=== PATIENT | male | born 1975 | race Hispanic/Latino ===

== ENCOUNTER 2019-12-30 13:16 | Inpatient (IN) | payer OTHER ==
[~2019-12-30] VITALS: Ht 167.6 cm; Wt 117.9 kg
[2019-12-30 14:12] LABS: CREATININE 0.8 mg/dL (0.5-1.5); POTASSIUM 3.9 mmol/L (3.5-5.1)
[2019-12-30 14:17] LABS: ALBUMIN 3.1 g/dL (3.5-5.0); BILIRUBIN,TOTAL 0.3 mg/dL (0.2-1.0); TOTAL PROTEIN, SERUM 7.9 g/dL (6.0-8.3)
[2019-12-30 14:23] LABS: BASOPHILS % (AUTO) 0.2 % (0.0-5.0); HEMATOCRIT 40.9 % (42-54); LYMPHOCYTES % (AUTO) 10.4 % (21.0-51.0); MEAN CORPUSCULAR HEMOGLOBIN 29.4 pg (27.0-33.0); MEAN CORPUSCULAR HGB CONC 34.7 g/dL (32.0-36.0); MEAN CORPUSCULAR VOLUME 84.7 fL (79-99); NEUTROPHILS % (AUTO) 82.2 % (40.0-77.0); PLATELET COUNT (AUTO) 165 K/uL (130-400); RED BLOOD CELL COUNT(AUTO) 4.83 MIL/uL (4.50-6.20); RED CELL DISTRIBUTION WIDTH 12.3 % (11.0-15.5)
[2019-12-30 14:27] LABS: FERRITIN 895 ng/mL (30-400)
[2019-12-30] MEDS ORDERED: ERGOCALCIFEROL (VITAMIN D2) 50,000 UNIT CAPSULE PO SCH (15:30)
[2019-12-30] MEDS ORDERED: ONDANSETRON HCL 4 MG/2 ML VIAL IV PRN (15:30)
[2019-12-30] MEDS ORDERED: LACTULOSE 20 GM/30 ML UDCUP PO PRN (15:30)
[2019-12-30] MEDS ORDERED: ACETAMINOPHEN 325 MG TAB PO PRN (15:30)
[2019-12-30] MEDS: CEFTRIAXONE SODIUM 1 GM IVP SCH (15:30)
[2019-12-30] MEDS ORDERED: HYDRALAZINE HCL 20 MG/ML VIAL IV PRN (15:30)
[2019-12-30] MEDS ORDERED: DEXAMETHASONE SOD PHOSPHATE 10MG/ML 1ML VIAL ONE (15:44)
[2019-12-30] MEDS ORDERED: ERGOCALCIFEROL (VITAMIN D2) 50,000 UNIT CAPSULE ONE (16:17)
[2019-12-30] MEDS ORDERED: ACETAMINOPHEN 325 MG TAB ONE (16:18)
[2019-12-30] MEDS ORDERED: CEFTRIAXONE SODIUM 1 GM ONE (16:18)
[2019-12-30] MEDS ORDERED: ALBUTEROL INHALER 90MCG/INH IH PRN (16:30)
[2019-12-30] MEDS: FAMOTIDINE 20MG TAB 20 MG TAB PO SCH (21:00)
[2019-12-30] MEDS: ACETYLCYSTEINE 600 MG CAPSULE PO SCH (21:00)
[2019-12-30] MEDS: DOXYCYCLINE HYCLATE 100 MG TABLET PO SCH (21:00)
[2019-12-30] MEDS: METHYLPREDNISOLONE SOD SUCC 40MG/ML 1ML IVP SCH (21:00)
[2019-12-30] MEDS ORDERED: METHYLPREDNISOLONE SOD SUCC 40MG/ML 1ML ONE (21:29)
[2019-12-30] MEDS ORDERED: DOXYCYCLINE HYCLATE 100 MG TABLET PO ONE (21:29)
[2019-12-30] MEDS ORDERED: FAMOTIDINE 20MG TAB 20 MG TAB ONE (21:29)
[2019-12-30] MEDS ORDERED: ENOXAPARIN SODIUM 40 MG/0.4 ML SYRINGE SQ ONE (21:29)
[2019-12-30 23:00] VITALS: BP 135/85
[2019-12-31] MEDS: CEFTRIAXONE SODIUM 1 GM IVP SCH ×2 (03:38→14:09)
[2019-12-31 04:00] VITALS: BP 113/68
[2019-12-31 07:09] LABS: CRP QUANTITATIVE 131.1 mg/L (0.00-9.0)
[2019-12-31 08:00] VITALS: BP 120/76
[2019-12-31] MEDS: ASCORBIC ACID 500 MG TAB PO SCH (09:07)
[2019-12-31] MEDS: METHYLPREDNISOLONE SOD SUCC 40MG/ML 1ML IVP SCH ×3 (09:07→20:54)
[2019-12-31] MEDS: ZINC SULFATE 220 CAPSULE PO SCH (09:08)
[2019-12-31] MEDS: FAMOTIDINE 20MG TAB 20 MG TAB PO SCH ×2 (09:08→20:54)
[2019-12-31] MEDS: DOXYCYCLINE HYCLATE 100 MG TABLET PO SCH ×2 (09:08→20:54)
[2019-12-31] MEDS: ACETYLCYSTEINE 600 MG CAPSULE PO SCH ×2 (09:09→20:54)
[2019-12-31] MEDS: ENOXAPARIN SODIUM 40 MG/0.4 ML SYRINGE SQ SCH (09:11)
[2019-12-31 11:00] VITALS: BP 127/82
--- NOTE | 2019-12-31 12:11 | NUR ---
pt endorsed from previous admitting nurse, upon assessment pt is alert and oriented able to verbalize needs, current saturation 86% on 3L, oxygen increased to 5L and pt advised to lay in prone or side lying position. Pt oxygen saturation slowly increased to 92%, pt feels slight shortness of breath while resting. Called pharmacy for prn ventolin inhaler. Pt reports speech therapist early intervention episode of diarrhea, will monitor. Pt vitals bp 127/82, hr 76, resp 24, 93% on 5L nasal canula, afebrile.
[2019-12-31 15:00] VITALS: BP 133/82
--- NOTE | 2019-12-31 18:10 | NUR ---
CM NOTE CM attempted phone call to pt [phone]. No answer, unable to leave message. CM also attempted call to Norah Delfino [phone], unable to leave message. CM to reattempt contact with patient.
[2019-12-31 21:50] VITALS: BP 132/69
[2020-01-01 00:42] VITALS: BP 130/69
[2020-01-01] MEDS: CEFTRIAXONE SODIUM 1 GM IVP SCH ×2 (03:33→14:34)
[2020-01-01 04:10] VITALS: BP 137/87
[2020-01-01 05:27] LABS: CRP QUANTITATIVE 51.4 mg/L (0.00-9.0)
[2020-01-01 07:31] LABS: BASOPHILS % (AUTO) 0.1 % (0.0-5.0); HEMATOCRIT 42.2 % (42-54); LYMPHOCYTES % (AUTO) 6.3 % (21.0-51.0); MEAN CORPUSCULAR HEMOGLOBIN 29.3 pg (27.0-33.0); MEAN CORPUSCULAR HGB CONC 34.1 g/dL (32.0-36.0); MEAN CORPUSCULAR VOLUME 85.9 fL (79-99); MONOCYTES % (AUTO) 6.6 % (3.0-13.0); NEUTROPHILS % (AUTO) 86.3 % (40.0-77.0); PLATELET COUNT (AUTO) 244 K/uL (130-400); RED BLOOD CELL COUNT(AUTO) 4.91 MIL/uL (4.50-6.20); RED CELL DISTRIBUTION WIDTH 12.6 % (11.0-15.5); WHITE BLOOD COUNT (AUTO) 18.3 K/uL (4.8-10.8)
[2020-01-01 07:49] LABS: ALBUMIN 2.9 g/dL (3.5-5.0); BILIRUBIN,TOTAL 0.2 mg/dL (0.2-1.0); CREATININE 0.9 mg/dL (0.5-1.5); TOTAL PROTEIN, SERUM 8.1 g/dL (6.0-8.3)
[2020-01-01 08:00] VITALS: BP 122/72
[2020-01-01] MEDS: ZINC SULFATE 220 CAPSULE PO SCH (09:14)
[2020-01-01] MEDS: ACETYLCYSTEINE 600 MG CAPSULE PO SCH ×2 (09:14→20:52)
[2020-01-01] MEDS: DOXYCYCLINE HYCLATE 100 MG TABLET PO SCH ×2 (09:14→20:52)
[2020-01-01] MEDS: ENOXAPARIN SODIUM 40 MG/0.4 ML SYRINGE SQ SCH (09:14)
[2020-01-01] MEDS: FAMOTIDINE 20MG TAB 20 MG TAB PO SCH ×2 (09:14→20:52)
[2020-01-01] MEDS: METHYLPREDNISOLONE SOD SUCC 40MG/ML 1ML IVP SCH ×3 (09:14→20:52)
[2020-01-01] MEDS: LISINOPRIL 10 MG TABLET PO SCH (09:15)
[2020-01-01] MEDS: ASCORBIC ACID 500 MG TAB PO SCH (09:15)
[2020-01-01 12:00] VITALS: BP 113/60
[2020-01-01 16:00] VITALS: BP 123/67
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
[2020-01-01 21:28] VITALS: BP 130/77
[2020-01-02 00:57] VITALS: BP 133/70
[2020-01-02] MEDS: CEFTRIAXONE SODIUM 1 GM IVP SCH ×2 (03:30→16:31)
[2020-01-02 05:40] VITALS: BP 106/52
[2020-01-02 06:48] LABS: BASOPHILS % (AUTO) 0.1 % (0.0-5.0); EOSINOPHILS % (AUTO) 0.3 % (0.0-8.0); HEMATOCRIT 39.9 % (42-54); LYMPHOCYTES % (AUTO) 4.4 % (21.0-51.0); MEAN CORPUSCULAR HEMOGLOBIN 29.2 pg (27.0-33.0); MEAN CORPUSCULAR HGB CONC 33.8 g/dL (32.0-36.0); MEAN CORPUSCULAR VOLUME 86.4 fL (79-99); MONOCYTES % (AUTO) 7.9 % (3.0-13.0); NEUTROPHILS % (AUTO) 86.3 % (40.0-77.0); PLATELET COUNT (AUTO) 250 K/uL (130-400); RED BLOOD CELL COUNT(AUTO) 4.62 MIL/uL (4.50-6.20); RED CELL DISTRIBUTION WIDTH 12.5 % (11.0-15.5); WHITE BLOOD COUNT (AUTO) 20.1 K/uL (4.8-10.8)
[2020-01-02] MEDS: ZINC SULFATE 220 CAPSULE PO SCH (08:20)
[2020-01-02] MEDS: ASCORBIC ACID 500 MG TAB PO SCH (08:20)
[2020-01-02] MEDS: ENOXAPARIN SODIUM 40 MG/0.4 ML SYRINGE SQ SCH (08:20)
[2020-01-02] MEDS: ACETYLCYSTEINE 600 MG CAPSULE PO SCH ×2 (08:20→19:13)
[2020-01-02] MEDS: LISINOPRIL 10 MG TABLET PO SCH (08:20)
[2020-01-02] MEDS: FAMOTIDINE 20MG TAB 20 MG TAB PO SCH ×2 (08:20→19:13)
[2020-01-02] MEDS: METHYLPREDNISOLONE SOD SUCC 40MG/ML 1ML IVP SCH ×3 (08:20→19:13)
[2020-01-02] MEDS: DOXYCYCLINE HYCLATE 100 MG TABLET PO SCH ×2 (08:20→19:13)
[2020-01-02 09:38] VITALS: BP 120/67
[2020-01-02 10:10] LABS: CREATININE 0.9 mg/dL (0.5-1.5); CRP QUANTITATIVE 23.6 mg/L (0.00-9.0); POTASSIUM 4.3 mmol/L (3.5-5.1)
[2020-01-02] MEDS ORDERED: PHARMACY COMMUNICATION MISC SCH (10:15)
[2020-01-02] MEDS: PHARMACY COMMUNICATION MISC SCH ×4 (11:30→23:24)
[2020-01-02 12:00] VITALS: BP 128/87
[2020-01-02] MEDS ORDERED: IVERMECTIN 3 MG TAB PO SCH (12:45)
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
[2020-01-02 16:00] VITALS: BP 122/65
[2020-01-02 19:30] VITALS: BP 133/72
--- NOTE | 2020-01-02 21:40 | NUR ---
PT alert, showing no signs and symptoms of distress, pt on oxygen therapy per NRB sat at 94%, pt stated no pain, will continue to monitor pt
[2020-01-03] VITALS: BP 126/90
[2020-01-03] MEDS: PHARMACY COMMUNICATION MISC SCH ×6 (02:08→23:56)
[2020-01-03] MEDS: CEFTRIAXONE SODIUM 1 GM IVP SCH ×2 (02:43→14:45)
[2020-01-03 04:00] VITALS: BP 145/82
--- NOTE | 2020-01-03 06:17 | NUR ---
Assessment Patient is in the bed sleeping. His vitals are stable at the moment & he is being closely monitored. His HR did drop to overnight to 44, but it did not sustain.
[2020-01-03 08:00] VITALS: BP 129/80
[2020-01-03] MEDS: FAMOTIDINE 20MG TAB 20 MG TAB PO SCH ×2 (08:47→19:55)
[2020-01-03] MEDS: LISINOPRIL 10 MG TABLET PO SCH (08:47)
[2020-01-03] MEDS: DOXYCYCLINE HYCLATE 100 MG TABLET PO SCH ×2 (08:47→19:55)
[2020-01-03] MEDS: ACETYLCYSTEINE 600 MG CAPSULE PO SCH ×2 (08:47→19:55)
[2020-01-03] MEDS: ASCORBIC ACID 500 MG TAB PO SCH (08:47)
[2020-01-03] MEDS: ZINC SULFATE 220 CAPSULE PO SCH (08:47)
[2020-01-03] MEDS: ENOXAPARIN SODIUM 40 MG/0.4 ML SYRINGE SQ SCH (08:48)
[2020-01-03] MEDS: METHYLPREDNISOLONE SOD SUCC 40MG/ML 1ML IVP SCH ×3 (08:48→19:55)
[2020-01-03 12:00] VITALS: BP 139/77
[2020-01-03 16:00] VITALS: BP 135/80
--- NOTE | 2020-01-03 17:46 | NUR ---
RT EVALUATED THE PT AND DECREASE O2 OF THE NRB MASK FROM 15 L TO 10 L IN PARTIAL OXYGENATION. O2 SAT IS 97-98% AT THE MOMENT.
[2020-01-03 19:30] VITALS: BP 138/67
[2020-01-04] VITALS (7 sets, daily range): BP systolic 123–141; BP diastolic 63–81
[2020-01-04] MEDS: CEFTRIAXONE SODIUM 1 GM IVP SCH ×2 (03:33→15:12)
[2020-01-04] MEDS: PHARMACY COMMUNICATION MISC SCH ×6 (03:35→23:09)
[2020-01-04 06:39] LABS: BASOPHILS % (AUTO) 0.2 % (0.0-5.0); EOSINOPHILS % (AUTO) 0.2 % (0.0-8.0); HEMATOCRIT 39.3 % (42-54); LYMPHOCYTES % (AUTO) 4.6 % (21.0-51.0); MEAN CORPUSCULAR HEMOGLOBIN 29.5 pg (27.0-33.0); MEAN CORPUSCULAR HGB CONC 34.4 g/dL (32.0-36.0); MONOCYTES % (AUTO) 9.9 % (3.0-13.0); NEUTROPHILS % (AUTO) 83.1 % (40.0-77.0); PLATELET COUNT (AUTO) 224 K/uL (130-400); RED BLOOD CELL COUNT(AUTO) 4.57 MIL/uL (4.50-6.20); RED CELL DISTRIBUTION WIDTH 12.4 % (11.0-15.5); WHITE BLOOD COUNT (AUTO) 16.9 K/uL (4.8-10.8)
[2020-01-04 06:52] LABS: CREATININE 0.8 mg/dL (0.5-1.5); POTASSIUM 4.3 mmol/L (3.5-5.1)
[2020-01-04] MEDS: DOXYCYCLINE HYCLATE 100 MG TABLET PO SCH ×2 (08:30→19:21)
[2020-01-04] MEDS: METHYLPREDNISOLONE SOD SUCC 40MG/ML 1ML IVP SCH ×3 (08:30→19:22)
[2020-01-04] MEDS: ASCORBIC ACID 500 MG TAB PO SCH (08:30)
[2020-01-04] MEDS: FAMOTIDINE 20MG TAB 20 MG TAB PO SCH ×2 (08:34→19:22)
[2020-01-04] MEDS: LISINOPRIL 10 MG TABLET PO SCH (08:34)
[2020-01-04] MEDS: ZINC SULFATE 220 CAPSULE PO SCH (08:34)
[2020-01-04] MEDS: ACETYLCYSTEINE 600 MG CAPSULE PO SCH ×2 (08:34→19:22)
[2020-01-04] MEDS: ENOXAPARIN SODIUM 40 MG/0.4 ML SYRINGE SQ SCH (08:37)
[2020-01-04] MEDS ORDERED: PHARMACY COMMUNICATION MISC SCH ×2 (09:00→13:30)
--- NOTE | 2020-01-04 11:00 | NUR ---
PATIENT CALLED CM & ASKED ABOUT DC PLAN. ADVISED HIM THAT HE WAS GOING NO WHERE ON A VENTI MASK, BUT WHEN HE IS WEANABLE TO 3-4 LNC, WE CAN OFFER HIM A CONCENTRATOR TO BE DISCHARGED HOME WITH. VERBALIZED UNDERSTANDING. WILL FOLLOW Addendum: 01/05/20 at 1928 by ELMIRA VARGAS RN CM Amended: Links added.
[2020-01-04 15:32] LABS: ALBUMIN 2.6 g/dL (3.5-5.0); BILIRUBIN,DIRECT 0.1 mg/dL (0.0-0.3); BILIRUBIN,TOTAL 0.5 mg/dL (0.2-1.0); TOTAL PROTEIN, SERUM 6.9 g/dL (6.0-8.3)
[2020-01-04] MEDS ORDERED: REMDESIVIR 200 MG in SODIUM CHLORIDE 0.9% 250 ML IV ONE (16:30)
[2020-01-05] MEDS: PHARMACY COMMUNICATION MISC SCH ×5 (03:24→19:57)
[2020-01-05] MEDS: CEFTRIAXONE SODIUM 1 GM IVP SCH ×2 (03:24→16:16)
[2020-01-05 03:57] VITALS: BP 130/76
--- NOTE | 2020-01-05 04:13 | NUR ---
Assessment Patient was just given his 330 am abx. He states that he is feeling better this morning than he has in the last past couple of days. He is not showing any S/S of distress & he is being closely monitored. Vitals are stable.
[2020-01-05 07:15] LABS: BASOPHILS % (AUTO) 0.2 % (0.0-5.0); HEMATOCRIT 39.2 % (42-54); LYMPHOCYTES % (AUTO) 4.3 % (21.0-51.0); MEAN CORPUSCULAR HEMOGLOBIN 29.2 pg (27.0-33.0); MEAN CORPUSCULAR HGB CONC 33.9 g/dL (32.0-36.0); MONOCYTES % (AUTO) 10.2 % (3.0-13.0); NEUTROPHILS % (AUTO) 82.3 % (40.0-77.0); PLATELET COUNT (AUTO) 248 K/uL (130-400); RED BLOOD CELL COUNT(AUTO) 4.56 MIL/uL (4.50-6.20); RED CELL DISTRIBUTION WIDTH 12.5 % (11.0-15.5); WHITE BLOOD COUNT (AUTO) 18.7 K/uL (4.8-10.8)
[2020-01-05 07:36] LABS: ALBUMIN 2.5 g/dL (3.5-5.0); BILIRUBIN,TOTAL 0.4 mg/dL (0.2-1.0); CREATININE 0.8 mg/dL (0.5-1.5); CRP QUANTITATIVE 39.1 mg/L (0.00-9.0); POTASSIUM 4.2 mmol/L (3.5-5.1); TOTAL PROTEIN, SERUM 6.9 g/dL (6.0-8.3)
[2020-01-05] MEDS: ACETYLCYSTEINE 600 MG CAPSULE PO SCH ×2 (08:04→19:57)
[2020-01-05] MEDS: FAMOTIDINE 20MG TAB 20 MG TAB PO SCH ×2 (08:04→19:57)
[2020-01-05] MEDS: ASCORBIC ACID 500 MG TAB PO SCH (08:04)
[2020-01-05] MEDS: METHYLPREDNISOLONE SOD SUCC 40MG/ML 1ML IVP SCH ×3 (08:04→19:57)
[2020-01-05] MEDS: DOXYCYCLINE HYCLATE 100 MG TABLET PO SCH ×2 (08:05→19:57)
[2020-01-05] MEDS: LISINOPRIL 10 MG TABLET PO SCH (08:05)
[2020-01-05] MEDS: ZINC SULFATE 220 CAPSULE PO SCH (08:06)
[2020-01-05] MEDS: ENOXAPARIN SODIUM 40 MG/0.4 ML SYRINGE SQ SCH (08:06)
[2020-01-05 09:33] VITALS: BP 123/74
[2020-01-05 12:19] VITALS: BP 124/70
[2020-01-05] MEDS ORDERED: COMPOUND IV REFRIGERATED 1 EACH IVSOLN MISC PRN (12:45)
[2020-01-05] MEDS: REMDESIVIR (EUA) 520 100 MG in SODIUM CHLORIDE 0.9% 250 ML IV SCH (16:17)
[2020-01-05 16:25] VITALS: BP 120/66
--- NOTE | 2020-01-05 17:52 | NUR ---
PT is alert, showed no signs and symptoms of distress, pt received his first dose of remdesivir today, no adverse reaction, plasma is pending, pt satuation is 88-91% on venti mask 50%, stated no pain, will continue to monitor pt
[2020-01-05] MEDS ORDERED: SODIUM CHLORIDE 0.9% 500ML 500 ML IV ONE (20:21)
[2020-01-05 21:08] VITALS: BP 124/66
--- NOTE | 2020-01-05 23:35 | NUR ---
Assessment Patient has received both units of FFP. He is not showing any S/S of distress at the moment. Vitals are stable and he is being closely monitored.
[2020-01-05 23:53] VITALS: BP 140/74
[2020-01-06] MEDS: PHARMACY COMMUNICATION MISC SCH ×5 (02:25→23:10)
[2020-01-06] MEDS: CEFTRIAXONE SODIUM 1 GM IVP SCH (02:58)
[2020-01-06 04:28] LABS: BASOPHILS % (AUTO) 0.2 % (0.0-5.0); LYMPHOCYTES % (AUTO) 3.9 % (21.0-51.0); MEAN CORPUSCULAR HEMOGLOBIN 29.2 pg (27.0-33.0); MEAN CORPUSCULAR HGB CONC 33.9 g/dL (32.0-36.0); MONOCYTES % (AUTO) 7.1 % (3.0-13.0); NEUTROPHILS % (AUTO) 84.9 % (40.0-77.0); PLATELET COUNT (AUTO) 228 K/uL (130-400); RED BLOOD CELL COUNT(AUTO) 4.42 MIL/uL (4.50-6.20); RED CELL DISTRIBUTION WIDTH 12.5 % (11.0-15.5); WHITE BLOOD COUNT (AUTO) 19.1 K/uL (4.8-10.8)
[2020-01-06 04:53] LABS: ALBUMIN 2.5 g/dL (3.5-5.0); BILIRUBIN,TOTAL 0.4 mg/dL (0.2-1.0); CREATININE 0.8 mg/dL (0.5-1.5); CRP QUANTITATIVE 56.8 mg/L (0.00-9.0); TOTAL PROTEIN, SERUM 6.9 g/dL (6.0-8.3)
[2020-01-06 06:53] VITALS: BP 141/80
[2020-01-06] MEDS: ACETYLCYSTEINE 600 MG CAPSULE PO SCH ×2 (08:23→20:07)
[2020-01-06] MEDS: FAMOTIDINE 20MG TAB 20 MG TAB PO SCH ×2 (08:24→20:07)
[2020-01-06] MEDS: ASCORBIC ACID 500 MG TAB PO SCH (08:24)
[2020-01-06] MEDS: ENOXAPARIN SODIUM 40 MG/0.4 ML SYRINGE SQ SCH ×2 (08:24→20:07)
[2020-01-06] MEDS: METHYLPREDNISOLONE SOD SUCC 40MG/ML 1ML IVP SCH ×2 (08:24→14:51)
[2020-01-06] MEDS: DOXYCYCLINE HYCLATE 100 MG TABLET PO SCH ×2 (08:24→20:17)
[2020-01-06] MEDS: LISINOPRIL 10 MG TABLET PO SCH (08:25)
[2020-01-06] MEDS: ZINC SULFATE 220 CAPSULE PO SCH (08:25)
[2020-01-06 08:48] VITALS: BP 142/70
[2020-01-06 11:03] VITALS: BP 139/79
--- NOTE | 2020-01-06 12:35 | NUR ---
Walked in to do a routine spot check. When I walked in pt got up from a proned position to sit on side of bed and began to remove 50% VM. I told pt not to remove mask. Pt put mask back on. SpO2 on 50% VM 81% and went as far as 77% went pt moved. Sats came back up to 81% but never improved. I was going to place pt on 100% NRB when pt told me no. He stated he would recover. 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 Because still had not improved I encouraged him to let me place the NRB on. He said no because he would regress by doing so. Risks were explainged & he said he understood the risks of not wearing it. Adore ROSADO made aware.
[2020-01-06] MEDS: REMDESIVIR (EUA) 520 100 MG in SODIUM CHLORIDE 0.9% 250 ML IV SCH (14:59)
[2020-01-06 16:18] VITALS: BP 127/65
[2020-01-06 21:01] VITALS: BP 132/82
[2020-01-07] VITALS (7 sets, daily range): BP systolic 110–152; BP diastolic 59–96
[2020-01-07] MEDS: PHARMACY COMMUNICATION MISC SCH ×6 (03:30→20:47)
[2020-01-07 03:50] LABS: BASOPHILS % (AUTO) 0.3 % (0.0-5.0); HEMATOCRIT 40.7 % (42-54); LYMPHOCYTES % (AUTO) 4.1 % (21.0-51.0); MEAN CORPUSCULAR HEMOGLOBIN 29.6 pg (27.0-33.0); MEAN CORPUSCULAR HGB CONC 34.2 g/dL (32.0-36.0); MEAN CORPUSCULAR VOLUME 86.6 fL (79-99); MONOCYTES % (AUTO) 4.9 % (3.0-13.0); PLATELET COUNT (AUTO) 203 K/uL (130-400); RED CELL DISTRIBUTION WIDTH 12.4 % (11.0-15.5); WHITE BLOOD COUNT (AUTO) 20.7 K/uL (4.8-10.8)
[2020-01-07 04:09] LABS: ALBUMIN 2.4 g/dL (3.5-5.0); BILIRUBIN,TOTAL 0.4 mg/dL (0.2-1.0); CREATININE 0.8 mg/dL (0.5-1.5); CRP QUANTITATIVE 85.4 mg/L (0.00-9.0); POTASSIUM 4.7 mmol/L (3.5-5.1); TOTAL PROTEIN, SERUM 6.7 g/dL (6.0-8.3)
--- NOTE | 2020-01-07 06:16 | NUR ---
Assessment Patient D-Dimer is elevated from 1885 to 3646. MD was called and informed. The patient had to be transitioned from a venti mask fiO2 of 50% to a Partial Non-rebreather. A c-xray & ABGS were ordered per MD. His vitals are stable & he is being closely monitored.
[2020-01-07 06:29] LABS: ABG BASE EXCESS -2.4 mmol/L (-2.0-3.0); ABG HCO3 20.6 mmol/L (21.0-28.0); ABG OXYGEN SATURATION 96.9 % (95.0-99.0); ABG PCO2 31 mmHg (35-48)
[2020-01-07] MEDS ORDERED: IOHEXOL-350 75 ML VIAL IV ONE (06:44)
[2020-01-07] MEDS: FAMOTIDINE 20MG TAB 20 MG TAB PO SCH ×2 (08:51→20:38)
[2020-01-07] MEDS: ASCORBIC ACID 500 MG TAB PO SCH (08:51)
[2020-01-07] MEDS: ZINC SULFATE 220 CAPSULE PO SCH (08:51)
[2020-01-07] MEDS: LISINOPRIL 10 MG TABLET PO SCH (08:51)
[2020-01-07] MEDS: ACETYLCYSTEINE 600 MG CAPSULE PO SCH ×2 (08:51→20:37)
[2020-01-07] MEDS: DEXAMETHASONE SOD PHOSPHATE 4 MG/ML 1ML VIAL IVP SCH (08:52)
[2020-01-07] MEDS: ENOXAPARIN SODIUM 40 MG/0.4 ML SYRINGE SQ SCH (08:53)
[2020-01-07] MEDS ORDERED: ENOXAPARIN SODIUM 100 MG/1 ML SQ SCH (10:00)
[2020-01-07] MEDS ORDERED: DOCUSATE SODIUM 100 MG CAP PO SCH (10:30)
[2020-01-07] MEDS ORDERED: ALPRAZOLAM 0.25 MG TABLET PO PRN (10:45)
[2020-01-07] MEDS ORDERED: ENOXAPARIN SODIUM 60 MG/0.6 ML SQ SCH ×2 (11:00)
[2020-01-07] MEDS: REMDESIVIR (EUA) 520 100 MG in SODIUM CHLORIDE 0.9% 250 ML IV SCH (16:27)
[2020-01-07] MEDS: ENOXAPARIN SODIUM 100 MG/1 ML SQ SCH (20:38)
[2020-01-08 00:27] VITALS: BP 122/77
[2020-01-08] MEDS: PHARMACY COMMUNICATION MISC SCH ×6 (02:55→20:18)
--- NOTE | 2020-01-08 04:38 | NUR ---
Assessment Patient is in the bed sleeping peacefully. He is not showing any S/S of distress. Vitals are stable. He is being closely monitored.
[2020-01-08 06:15] VITALS: BP 123/79
[2020-01-08 08:12] VITALS: BP 117/79
[2020-01-08] MEDS: DEXAMETHASONE SOD PHOSPHATE 4 MG/ML 1ML VIAL IVP SCH (09:28)
[2020-01-08] MEDS: ASCORBIC ACID 500 MG TAB PO SCH (09:29)
[2020-01-08] MEDS: ACETYLCYSTEINE 600 MG CAPSULE PO SCH ×2 (09:29→20:19)
[2020-01-08] MEDS: ENOXAPARIN SODIUM 100 MG/1 ML SQ SCH ×2 (09:29→20:20)
[2020-01-08] MEDS: FAMOTIDINE 20MG TAB 20 MG TAB PO SCH ×2 (09:29→20:19)
[2020-01-08] MEDS: LISINOPRIL 10 MG TABLET PO SCH (09:29)
[2020-01-08] MEDS: ZINC SULFATE 220 CAPSULE PO SCH (09:29)
[2020-01-08 12:06] VITALS: BP 108/64
[2020-01-08 15:30] VITALS: BP 108/79
[2020-01-08] MEDS: REMDESIVIR (EUA) 520 100 MG in SODIUM CHLORIDE 0.9% 250 ML IV SCH (16:01)
[2020-01-08 21:19] VITALS: BP 96/51
[2020-01-08] MEDS: LEVOFLOXACIN 500 MG/D5W 100 ML 100 ML IV SCH (22:37)
[2020-01-09 01:09] VITALS: BP 108/70
[2020-01-09] MEDS: PHARMACY COMMUNICATION MISC SCH ×2 (02:04→05:11)
[2020-01-09 06:33] VITALS: BP 102/47
[2020-01-09] MEDS: LISINOPRIL 10 MG TABLET PO SCH ×2 (09:00→09:30)
[2020-01-09] MEDS: ACETYLCYSTEINE 600 MG CAPSULE PO SCH ×2 (09:29→20:07)
[2020-01-09] MEDS: ASCORBIC ACID 500 MG TAB PO SCH (09:29)
[2020-01-09] MEDS: ZINC SULFATE 220 CAPSULE PO SCH (09:30)
[2020-01-09] MEDS: FAMOTIDINE 20MG TAB 20 MG TAB PO SCH ×2 (09:30→20:07)
[2020-01-09] MEDS: DEXAMETHASONE SOD PHOSPHATE 4 MG/ML 1ML VIAL IVP SCH ×2 (09:32→20:07)
[2020-01-09] MEDS: ENOXAPARIN SODIUM 100 MG/1 ML SQ SCH ×2 (09:32→20:07)
[2020-01-09 12:52] VITALS: BP 105/59
[2020-01-09 16:30] VITALS: BP 98/71
[2020-01-09] MEDS: LEVOFLOXACIN 500 MG/D5W 100 ML 100 ML IV SCH (20:07)
[2020-01-09 21:47] VITALS: BP 116/64
[2020-01-10] VITALS (7 sets, daily range): BP systolic 105–120; BP diastolic 46–77
[2020-01-10 05:52] LABS: BASOPHILS % (AUTO) 0.4 % (0.0-5.0); HEMATOCRIT 42.8 % (42-54); LYMPHOCYTES % (AUTO) 2.9 % (21.0-51.0); MEAN CORPUSCULAR HEMOGLOBIN 30.8 pg (27.0-33.0); MEAN CORPUSCULAR HGB CONC 35.3 g/dL (32.0-36.0); MEAN CORPUSCULAR VOLUME 87.2 fL (79-99); MONOCYTES % (AUTO) 4.1 % (3.0-13.0); NEUTROPHILS % (AUTO) 89.2 % (40.0-77.0); PLATELET COUNT (AUTO) 200 K/uL (130-400); RED BLOOD CELL COUNT(AUTO) 4.91 MIL/uL (4.50-6.20); RED CELL DISTRIBUTION WIDTH 12.8 % (11.0-15.5); WHITE BLOOD COUNT (AUTO) 23.6 K/uL (4.8-10.8)
[2020-01-10 06:37] LABS: ALBUMIN 2.2 g/dL (3.5-5.0); BILIRUBIN,TOTAL 0.5 mg/dL (0.2-1.0); POTASSIUM 4.7 mmol/L (3.5-5.1); TOTAL PROTEIN, SERUM 7.4 g/dL (6.0-8.3)
[2020-01-10 06:43] LABS: CRP QUANTITATIVE 197.4 mg/L (0.00-9.0)
[2020-01-10] MEDS: ACETYLCYSTEINE 600 MG CAPSULE PO SCH ×2 (08:14→21:05)
[2020-01-10] MEDS: ZINC SULFATE 220 CAPSULE PO SCH (08:14)
[2020-01-10] MEDS: ASCORBIC ACID 500 MG TAB PO SCH (08:14)
[2020-01-10] MEDS: DEXAMETHASONE SOD PHOSPHATE 4 MG/ML 1ML VIAL IVP SCH (08:14)
[2020-01-10] MEDS: FAMOTIDINE 20MG TAB 20 MG TAB PO SCH ×2 (08:14→21:06)
[2020-01-10] MEDS: ENOXAPARIN SODIUM 100 MG/1 ML SQ SCH ×2 (08:15→21:10)
[2020-01-10] MEDS: LISINOPRIL 10 MG TABLET PO SCH (08:15)
--- NOTE | 2020-01-10 14:32 | NUR ---
Nutrition Note: RD screened for [place] x 11. Pt currently with good oral intake of 75-100% of meals. Good tolerance and LBM 01/09. Recommend: continue patient on Heart healthy diet Add ensure BID with meals for added calories/protein Add Vit D 1000IU Addendum: 01/10/20 at [address] Amended: Links added.
[2020-01-10] MEDS: METHYLPREDNISOLONE SOD SUCC 40MG/ML 1ML IVP SCH ×2 (14:55→21:10)
[2020-01-10] MEDS ORDERED: IVERMECTIN 3 MG TAB PO SCH (15:30)
[2020-01-10] MEDS: LEVOFLOXACIN 500 MG/D5W 100 ML 100 ML IV SCH (21:10)
[2020-01-11] VITALS (35 sets, daily range): BP systolic 102–211; BP diastolic 46–119
[2020-01-11] MEDS: METHYLPREDNISOLONE SOD SUCC 40MG/ML 1ML IVP SCH ×3 (05:39→20:05)
[2020-01-11] MEDS: ACETYLCYSTEINE 600 MG CAPSULE PO SCH ×2 (09:00→21:00)
[2020-01-11 09:15] LABS: BASOPHILS % (AUTO) 0.2 % (0.0-5.0); HEMATOCRIT 41.5 % (42-54); LYMPHOCYTES % (AUTO) 2.4 % (21.0-51.0); MEAN CORPUSCULAR HEMOGLOBIN 30.6 pg (27.0-33.0); MEAN CORPUSCULAR HGB CONC 35.4 g/dL (32.0-36.0); MEAN CORPUSCULAR VOLUME 86.5 fL (79-99); MONOCYTES % (AUTO) 4.5 % (3.0-13.0); NEUTROPHILS % (AUTO) 91.3 % (40.0-77.0); PLATELET COUNT (AUTO) 277 K/uL (130-400); WHITE BLOOD COUNT (AUTO) 24.1 K/uL (4.8-10.8)
[2020-01-11] MEDS: ENOXAPARIN SODIUM 100 MG/1 ML SQ SCH ×2 (09:16→20:05)
[2020-01-11] MEDS: ASCORBIC ACID 500 MG TAB PO SCH (09:16)
[2020-01-11] MEDS: FAMOTIDINE 20MG TAB 20 MG TAB PO SCH ×2 (09:16→20:05)
[2020-01-11] MEDS: LISINOPRIL 10 MG TABLET PO SCH (09:16)
[2020-01-11] MEDS: ZINC SULFATE 220 CAPSULE PO SCH (09:16)
[2020-01-11 09:28] LABS: ALBUMIN 2.2 g/dL (3.5-5.0); BILIRUBIN,TOTAL 0.4 mg/dL (0.2-1.0); POTASSIUM 4.8 mmol/L (3.5-5.1); TOTAL PROTEIN, SERUM 7.4 g/dL (6.0-8.3)
[2020-01-11 09:51] LABS: B-TYPE NATRIURETIC PEPTIDE 7 pg/mL (0-100)
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
--- NOTE | 2020-01-11 17:25 | NUR ---
RT WAS CALL AND NOTIFY TO EVALUATE THE PT AFTER PT COMPLIANT OF DIFFICULTY BREATHING WHEN SITTING ON THE SIDE OF THE BED. I PERSONALLY ASSES THE PT AND HIS O2 SAT AT THE MOMENT IS 87-88% WITH THE NRB MASK AT 100% AT REST. RT WAS NOTIFY AGAIN.
--- NOTE | 2020-01-11 18:29 | NUR ---
DR. MCDOANLD DOPE AND FABRIC WORKER IS CALL AND NOTIFY ABOUT PT BEEN IN NRB MASK AT 100% AND WITH SUSTAIN O2 SAT OF 87-88%. PT VERBALIZED SOB WHEN HE IS SITTING IN THE SIDE OF THE BED. DR MCDONALD ORDER TO PUT PT ON C-PAP AT 10 AND 100%.
[2020-01-11 20:31] LABS: ABG BASE EXCESS -9.7 mmol/L (-2.0-3.0); ABG HCO3 17.8 mmol/L (21.0-28.0); ABG OXYGEN SATURATION 79.4 % (95.0-99.0); ABG PCO2 45 mmHg (35-48)
[2020-01-11] MEDS ORDERED: SODIUM BICARB 50MEQ 50ML VIAL ONE (21:29)
[2020-01-11] MEDS ORDERED: FENTANYL CITRATE PF 50 MCG/1 ML 5ML AMP IV ONE (21:34)
[2020-01-11] MEDS ORDERED: PROPOFOL 1000 MG/100 ML 100 ML IV ONE (21:44)
--- NOTE | 2020-01-11 22:45 | NUR ---
PATIENT CONDITION PATIENT IS AWAKE WITH EYES OPEN. HE APPEARS ANXIOUS. VS UNSTABLE.
[2020-01-11 22:48] LABS: ABG HCO3 24.9 mmol/L (21.0-28.0); ABG OXYGEN SATURATION 91.9 % (95.0-99.0); ABG PCO2 92 mmHg (35-48)
--- NOTE | 2020-01-11 23:10 | NUR ---
Prior to Intubation At the beginning of the shift, the patient had just been upgraded from NRB to Cpap and his O2 sats were stable as well as vitals. Around 20:15 I was informed by the tech that the patient was having a hard time breathing. When I went into the room, the patient was working really hard to breathe (RR in the 40s, O2 sats were in the 70s in prone position, BP 143/60 HR 140s). The patient was extremely diaphoretic. Respiratory was immediately called & she changed the settings from Cpap to BiPAP. However, the patient was still unstable. The lab clerk was called and informed of the situation. Stat ABGs were ordered & the results were given to the COPRA PROCESSOR Kimberley Smith ([employer]). Based upon the results, the MD ordered an immediate transfer to ICU with recommendations for intubation STAT. Report was given to the ICU nurse Gabriela & she took over Mr. Arreola's care at 21:10. The sister Norah was called and informed of the patient's status & location Room 219.
[2020-01-11 23:38] LABS: ABG BASE EXCESS -10.6 mmol/L (-2.0-3.0); ABG HCO3 20.6 mmol/L (21.0-28.0); ABG OXYGEN SATURATION 83.4 % (95.0-99.0); ABG PCO2 70 mmHg (35-48)
[2020-01-11 23:45] LABS: CARBON DIOXIDE 25 mmol/L (21-32); CHLORIDE 101 mmol/L (101-111); CREATININE 1.1 mg/dL (0.5-1.5); GLOMERULAR FILTR. RATE CALC 77 mL/min (>60); GLUCOSE,RANDOM 235 mg/dL (70-105); HEMATOCRIT 37.5 % (42-54); MEAN CORPUSCULAR HEMOGLOBIN 36.2 pg (27.0-33.0); MEAN CORPUSCULAR HGB CONC 39.5 g/dL (32.0-36.0); MEAN CORPUSCULAR VOLUME 91.7 fL (79-99); PLATELET COUNT (AUTO) 312 K/uL (130-400); POTASSIUM 5.3 mmol/L (3.5-5.1); RED BLOOD CELL COUNT(AUTO) 4.09 MIL/uL (4.50-6.20); RED CELL DISTRIBUTION WIDTH 13.3 % (11.0-15.5); SODIUM SERUM 135 mmol/L (136-145); UREA NITROGEN, BLOOD 33 mg/dL (7-18)
[2020-01-11 23:48] LABS: WHITE BLOOD COUNT (AUTO) 30.9 K/uL (4.8-10.8)
[2020-01-11 23:57] LABS: MAN.DIFF COMMENT-IMPRESSION MANUAL DIFFERENTIAL; MONOCYTES % (MANUAL) 5 % (2-9); SEGMENTED NEUTROPHILS % 95 % (40-70)
[2020-01-12] VITALS (102 sets, daily range): BP systolic 57–166; BP diastolic 30–89
[2020-01-12 00:04] LABS: ALANINE AMINOTRANSFERASE 31 U/L (12-78); ALBUMIN 2.2 g/dL (3.5-5.0); ASPARTATE AMINOTRANSFERASE 30 U/L (10-37); BILIRUBIN,TOTAL 0.5 mg/dL (0.2-1.0); CREATINE KINASE, TOTAL 46 U/L (21-232); MYOGLOBIN 82 ng/mL (10-92); TOTAL PROTEIN, SERUM 7.8 g/dL (6.0-8.3); TROPONIN I < 0.04 ng/mL (0.00-0.06)
[2020-01-12] MEDS ORDERED: FENTANYL CITRATE PF 50 MCG/1 ML 5ML AMP IV ONE (00:04)
[2020-01-12] MEDS ORDERED: FENTANYL 2500MCG+NS 250ML 250 ML IV ONE ×3 (00:04→15:52)
[2020-01-12] MEDS ORDERED: SODIUM CHLORIDE 0.9% 1000ML 1,000 ML IV SCH (00:15)
[2020-01-12] MEDS ORDERED: SODIUM BICARB 50MEQ 50ML VIAL ONE (00:25)
[2020-01-12] MEDS ORDERED: PHARMACY COMMUNICATION MISC SCH ×2 (00:30→09:30)
[2020-01-12] MEDS ORDERED: NOREPINEPHRINE 4MG/NS 250ML 250 ML IV ONE (01:22)
[2020-01-12 02:15] LABS: ABG BASE EXCESS -8.1 mmol/L (-2.0-3.0); ABG HCO3 22.8 mmol/L (21.0-28.0); ABG PCO2 72 mmHg (35-48)
[2020-01-12] MEDS ORDERED: PROPOFOL 1000 MG/100 ML 100 ML IV ONE (03:12)
[2020-01-12] MEDS ORDERED: SODIUM CHLORIDE 0.9% 100 ML IV ONE (03:18)
[2020-01-12] MEDS ORDERED: FENTANYL CITRATE PF 50 MCG/1 ML 2ML VIAL IVP PRN (04:00)
[2020-01-12] MEDS ORDERED: FENTANYL CITRATE PF 50 MCG/1 ML 2ML VIAL IVP ONE (04:00)
[2020-01-12] MEDS ORDERED: FENTANYL CITRATE PF 50 MCG/1 ML 2ML VIAL IVP SCH (04:00)
--- NOTE | 2020-01-12 04:24 | NUR ---
2100 PATIENT ARRIVED TO ROOM 219. TRANSPORTED IN BED WITH RN AND RT. BEDSIDE REPORT RECEIVED USING SBAR FORMAT. PATIENT IS AWAKE ALERT AND APPEARS TO BE ORIENTED. PATIENT AGREES TO BE INTUBATED. CURRENTLY PATIENT IS ON BIPAP. BIPAP IS SET TO DELIVER 100% OXYGEN. O2 SATS VIA FINGER PROBE ARE REGISTERING IN THE HIGH 60'S AND LOW 70'S. 2119 M#20 IV PLACED IN LEFT FOREARM. SHARA SEAY IC DESIGNER STANDARD CELLS ARRIVED AT BEDSIDE. 2134 FENTANYL 100 MCGS, ROCURONIUM 10 MGS, ETOMIDATE 20 MGS, AND SUCCINYLCHOLINE 140 MGS WERE ADMINISTERED IV PUSH. 2136 SHARA SEAY SECURED A 7.5 ET TUBE AT THE 23 CM LIP LINE. BP 133/78 HR 118, R 20, O2 SATURATION 84%, VENT SETTINGS AC/VOLUME TV 400, R 20, PEEP 10, 100% 2139 SHARA SEAY IC DESIGNER STANDARD CELLS PLACED OG TUBE AND CONNECTED IT TO LIWS WITH 75 MLS OF BROWN LIQUID RETURNED, ARPAN GARZA APRN ORDER OG TUBE TO STAY CONNECTED TO LIWS. 2144 SHARA SEAY ADMINISTERED 3 MLS OF DIPRIVAN, FENTANYL 150 MGS, AND ROCURONIUM 40 MGS, IV PUSH. 2210 SODIUM BICARBONATE 50 MLS ADMINISTERED IV PUSH 2215 DIPRIVAN DRIP STARTED AT 5MCGS/KG/MIN 2220 SALGADO CATHETER PLACED PER ORDERS FROM GUILLERMO GARZA APRN 400 MLS OF CLEAR YELLOW LIQUID WAS IMMEDIATELY RETURNED 2245 DIPRIVAN DRIP INCREASED TO 10 MGCS/KG/MIN 2255 PER SHARA SEAY AFTER ABG RESPIRATORY RATE ON VENT WAS INCREASED TO 30 BREATHS PER MINUTE. 2320 DIPRIVAN DRIP INCREASED TO 15 MCGS/KG/MINUTE 2340 DIPRIVAN INCREASED TO 20 MCGS/KG/MINUTE 2345 SPOKE TO GUILLERMO GARZA APRN REGARDING MOST RECENT BLOOD GAS, RECEIVED ORDERS TO ADVANCE ET TUBE 2 CM, GIVE FENTANYL 250MCGS IV PUSH NOW AND START FENTANYL DRIP AT 250 MCGS/HOUR, START ROCURONIUM DRIP PER PROTOCOL, INCREASE DIPRIVAN DRIP TO 50 MCGS/KG/MIN, 1 AMP SODIUM BICARBONATE IV PUSH, PRONE PATIENT FOR 18 HOURS, START LEVOPHED DRIP FOR A MAP LESS THAN 65, REPEAT ABG'S 45 MINUTES AFTER PRONING AND CALL HER WITH RESULTS. 0005 ET TUBE INSERTED 2 CM FARTHER BY RT 0030 SODIUM BICARBONATE 1 AMP IV PUSH GIVEN 0045 ROCURONIUM DRIP STARTED AT 0.8 MCGS/KG/MINUTE 0100 COMPLETE BED BATH GIVEN 0120 PATIENT PRONED WITH 2 RN'S AND 2 RT'S 012 LEVOPHED DRIP INITIATED AT 0.3 MCGS/KG/MIN 0230 GUILLERMO GARZA APRN CALLED WITH ABG'S AND LAB RESULTS. RECEIVED ORDERS TO BOLUS 1 LITER NS, DRAW LACTIC ACID 1 HOUR AFTER BOLUS GIVEN AND REPEAT ABG IN AM. 399 LEVOPHED DRIP DECREASED TO 0.2 MGS/KG/MIN Addendum: 01/12/20 at 0508 by Gabriela Ceron RN RN CHRONICLE OF EVENTS
[2020-01-12] MEDS: AZITHROMYCIN 500MG+NS 250ML 250 ML IV SCH (06:27)
[2020-01-12] MEDS: METHYLPREDNISOLONE SOD SUCC 125MG/2ML VIAL IVP SCH ×5 (06:30→22:31)
[2020-01-12] MEDS: PROPOFOL 1000 MG/100 ML 100 ML IV PRN ×3 (06:49→22:18)
--- NOTE | 2020-01-12 07:11 | NUR ---
MEDICATION ADMINISTRATION SEE NOTES OPPOSED TO MAR FOR MEDICATION ADMINISTRATION
[2020-01-12 07:20] LABS: ABG BASE EXCESS -8.2 mmol/L (-2.0-3.0); ABG HCO3 22.4 mmol/L (21.0-28.0); ABG OXYGEN SATURATION 95.2 % (95.0-99.0); ABG PCO2 69 mmHg (35-48)
[2020-01-12] MEDS: ACETYLCYSTEINE 600 MG CAPSULE PO SCH ×2 (09:00→21:00)
[2020-01-12] MEDS ORDERED: LEVOFLOXACIN 750 MG/D5W 150 ML 150 ML IV SCH (09:00)
[2020-01-12] MEDS: NOREPINEPHRINE 4MG/NS 250ML 250 ML IV PRN ×2 (09:38→22:24)
[2020-01-12] MEDS: ROCURONIUM BROMIDE IV PRN ×2 (09:39→22:19)
[2020-01-12] MEDS: SODIUM CHLORIDE 0.9% IV PRN ×2 (09:39→22:19)
[2020-01-12] MEDS ORDERED: SODIUM CHLORIDE IV SCH (09:45)
[2020-01-12] MEDS ORDERED: WATER IV SCH (09:45)
[2020-01-12] MEDS ORDERED: DEXTROSE 5% IV SCH (09:45)
[2020-01-12] MEDS ORDERED: SODIUM BICARB 50MEQ 50ML VIAL IV SCH (09:45)
[2020-01-12] MEDS: LINEZOLID 600 MG/ISO-OSM 300 ML IV SCH ×2 (09:47→22:19)
[2020-01-12] MEDS: SODIUM BICARB 8.4% 50ML SYRING 150 MEQ in DEXTROSE 5%-WATER 1,000 ML IVP SCH ×2 (09:52→22:28)
[2020-01-12] MEDS: MEROPENEM 1 GM VIAL IVP SCH ×2 (10:01→17:08)
[2020-01-12 10:04] LABS: BILIRUBIN,TOTAL 0.3 mg/dL (0.2-1.0); CREATININE 1.6 mg/dL (0.5-1.5); POTASSIUM 5.3 mmol/L (3.5-5.1); TOTAL PROTEIN, SERUM 6.6 g/dL (6.0-8.3)
[2020-01-12] MEDS: ZINC SULFATE 220 CAPSULE PO SCH (10:11)
[2020-01-12] MEDS: LISINOPRIL 10 MG TABLET PO SCH (10:11)
[2020-01-12] MEDS: ASCORBIC ACID 500 MG TAB PO SCH (10:11)
[2020-01-12] MEDS: FAMOTIDINE 20MG TAB 20 MG TAB PO SCH ×2 (10:11→22:19)
[2020-01-12] MEDS: ENOXAPARIN SODIUM 100 MG/1 ML SQ SCH ×2 (10:11→22:18)
[2020-01-12 12:47] LABS: INR 0.91 (0.85-1.15); PARTIAL THROMBOPLASTIN TIME 26.5 SEC (26.3-35.5); PROTHROMBIN TIME 9.9 SEC (9.6-11.6)
[2020-01-12 15:52] LABS: ABG BASE EXCESS -3.4 mmol/L (-2.0-3.0); ABG HCO3 25.2 mmol/L (21.0-28.0); ABG OXYGEN SATURATION 95.1 % (95.0-99.0); ABG PCO2 62 mmHg (35-48)
--- NOTE | 2020-01-12 17:16 | NUR ---
Shift report Right triple lumen IJ placed. Pt placed in suspine position for this procedure.. Tolerated well with sats at 98%, with continued current vent settings. IV fluids continued as directed. New IV abxs given as directed. 700 of UOp . Will continue to monitor.
[2020-01-13] VITALS (52 sets, daily range): BP systolic 92–171; BP diastolic 46–85
[2020-01-13] MEDS: AZITHROMYCIN 500MG+NS 250ML 250 ML IV SCH ×2 (01:47→23:24)
[2020-01-13] MEDS: MEROPENEM 1 GM VIAL IVP SCH ×3 (01:47→18:05)
[2020-01-13] MEDS: FENTANYL CITRATE PF 0.05 MG/ML 2,500 MCG in SODIUM CHLORIDE 0.9% 200 ML IVPB SCH (03:00)
[2020-01-13] MEDS: METHYLPREDNISOLONE SOD SUCC 125MG/2ML VIAL IVP SCH ×4 (04:42→23:24)
[2020-01-13] MEDS: SODIUM CHLORIDE 0.9% IV PRN ×4 (04:43→04:59)
[2020-01-13] MEDS: ROCURONIUM BROMIDE IV PRN ×4 (04:43→04:59)
[2020-01-13] MEDS: PROPOFOL 1000 MG/100 ML 100 ML IV PRN ×2 (05:01→23:13)
[2020-01-13 05:26] LABS: HEMATOCRIT 34.2 % (42-54); MEAN CORPUSCULAR HEMOGLOBIN 30.6 pg (27.0-33.0); MEAN CORPUSCULAR HGB CONC 33.3 g/dL (32.0-36.0); MEAN CORPUSCULAR VOLUME 91.7 fL (79-99); PLATELET COUNT (AUTO) 227 K/uL (130-400); RED BLOOD CELL COUNT(AUTO) 3.73 MIL/uL (4.50-6.20); RED CELL DISTRIBUTION WIDTH 13.3 % (11.0-15.5); WHITE BLOOD COUNT (AUTO) 27.7 K/uL (4.8-10.8)
[2020-01-13 05:59] LABS: ALBUMIN 1.7 g/dL (3.5-5.0); BILIRUBIN,TOTAL 0.2 mg/dL (0.2-1.0); CREATININE 1.4 mg/dL (0.5-1.5); CRP QUANTITATIVE 25.6 mg/L (0.00-9.0); POTASSIUM 4.9 mmol/L (3.5-5.1); TOTAL PROTEIN, SERUM 5.7 g/dL (6.0-8.3)
[2020-01-13 07:49] LABS: MAN.DIFF COMMENT-IMPRESSION MANUAL DIFFERENTIAL; MONOCYTES % (MANUAL) 2 % (2-9); PLATELET MORPHOLOGY COMMENT ADEQUATE; SEGMENTED NEUTROPHILS % 98 % (40-70)
[2020-01-13] MEDS: FAMOTIDINE 20MG TAB 20 MG TAB PO SCH ×2 (08:47→23:25)
[2020-01-13] MEDS: SODIUM BICARB 8.4% 50ML SYRING 150 MEQ in DEXTROSE 5%-WATER 1,000 ML IVP SCH ×2 (08:47→20:15)
[2020-01-13] MEDS: ZINC SULFATE 220 CAPSULE PO SCH (08:48)
[2020-01-13] MEDS: LISINOPRIL 10 MG TABLET PO SCH (08:48)
[2020-01-13] MEDS: LINEZOLID 600 MG/ISO-OSM 300 ML IV SCH ×2 (08:48→23:15)
[2020-01-13] MEDS: ENOXAPARIN SODIUM 100 MG/1 ML SQ SCH ×2 (08:48→21:00)
[2020-01-13] MEDS: ASCORBIC ACID 500 MG TAB PO SCH (08:48)
[2020-01-13] MEDS: ACETYLCYSTEINE 600 MG CAPSULE PO SCH ×2 (09:00→21:00)
[2020-01-13] MEDS ORDERED: FENTANYL 2500MCG+NS 250ML 250 ML IV ONE ×2 (10:31→22:51)
[2020-01-13 11:55] LABS: ABG BASE EXCESS 3.2 mmol/L (-2.0-3.0); ABG HCO3 32.4 mmol/L (21.0-28.0); ABG OXYGEN SATURATION 91.3 % (95.0-99.0); ABG PCO2 71 mmHg (35-48)
[2020-01-13] MEDS ORDERED: NOREPINEPHRINE BITARTRATE 16 MG in SODIUM CHLORIDE 0.9% 250 ML IV SCH (13:45)
[2020-01-13] MEDS: ROCURONIUM BROMIDE 250 MG in SODIUM CHLORIDE 0.9% 250 ML IV PRN (23:14)
[2020-01-14] VITALS (62 sets, daily range): BP systolic 89–219; BP diastolic 30–90
[2020-01-14] MEDS: FENTANYL CITRATE PF 0.05 MG/ML 2,500 MCG in SODIUM CHLORIDE 0.9% 200 ML IVPB SCH ×2 (02:57→03:06)
[2020-01-14] MEDS: MEROPENEM 1 GM VIAL IVP SCH ×2 (02:57→11:08)
[2020-01-14] MEDS: ACETAMINOPHEN 325 MG TAB PO PRN ×2 (03:38→07:54)
[2020-01-14] MEDS: PROPOFOL 1000 MG/100 ML 100 ML IV PRN ×2 (04:14→21:52)
[2020-01-14 04:25] LABS: BASOPHILS % (AUTO) 0.1 % (0.0-5.0); HEMATOCRIT 35.2 % (42-54); LYMPHOCYTES % (AUTO) 3.3 % (21.0-51.0); MEAN CORPUSCULAR HEMOGLOBIN 29.6 pg (27.0-33.0); MEAN CORPUSCULAR HGB CONC 31.8 g/dL (32.0-36.0); MEAN CORPUSCULAR VOLUME 93.1 fL (79-99); MONOCYTES % (AUTO) 6.3 % (3.0-13.0); NEUTROPHILS % (AUTO) 89.4 % (40.0-77.0); PLATELET COUNT (AUTO) 166 K/uL (130-400); RED BLOOD CELL COUNT(AUTO) 3.78 MIL/uL (4.50-6.20); RED CELL DISTRIBUTION WIDTH 13.2 % (11.0-15.5); WHITE BLOOD COUNT (AUTO) 16.8 K/uL (4.8-10.8)
[2020-01-14 05:19] LABS: ALBUMIN 1.9 g/dL (3.5-5.0); BILIRUBIN,TOTAL 0.3 mg/dL (0.2-1.0); CREATININE 1.7 mg/dL (0.5-1.5); CRP QUANTITATIVE 12.7 mg/L (0.00-9.0)
[2020-01-14] MEDS: METHYLPREDNISOLONE SOD SUCC 125MG/2ML VIAL IVP SCH (07:27)
[2020-01-14 07:36] LABS: ABG BASE EXCESS 2.3 mmol/L (-2.0-3.0); ABG HCO3 30.7 mmol/L (21.0-28.0); ABG OXYGEN SATURATION 92.7 % (95.0-99.0); ABG PCO2 64 mmHg (35-48)
[2020-01-14] MEDS: SODIUM BICARB 8.4% 50ML SYRING 150 MEQ in DEXTROSE 5%-WATER 1,000 ML IVP SCH ×2 (07:45→19:15)
[2020-01-14] MEDS ORDERED: FENTANYL CITRATE PF 0.05 MG/ML 1,000 MCG in SODIUM CHLORIDE 0.9% 100 ML IVPB SCH (08:15)
[2020-01-14] MEDS: LISINOPRIL 10 MG TABLET PO SCH (09:00)
[2020-01-14] MEDS: FAMOTIDINE 20MG TAB 20 MG TAB PO SCH ×2 (09:00→21:45)
[2020-01-14] MEDS: ACETYLCYSTEINE 20% 200MG/ML 4ML VIAL NG SCH ×2 (09:00→21:46)
[2020-01-14] MEDS: ASCORBIC ACID 500 MG TAB PO SCH (09:00)
[2020-01-14] MEDS: ENOXAPARIN SODIUM 100 MG/1 ML SQ SCH (09:00)
[2020-01-14] MEDS: ZINC SULFATE 220 CAPSULE PO SCH (09:00)
[2020-01-14] MEDS ORDERED: FENTANYL 2500MCG+NS 250ML 250 ML IV ONE ×2 (10:14→21:27)
[2020-01-14] MEDS: LINEZOLID 600 MG/ISO-OSM 300 ML IV SCH ×2 (11:07→21:46)
[2020-01-14] MEDS ORDERED: MIDAZOLAM 100MG-0.9% NS 100ML 100ML BAG IV SCH (11:45)
[2020-01-14] MEDS ORDERED: LACTATED RINGERS 1000ML IV SCH (11:45)
[2020-01-14] MEDS ORDERED: METHYLPREDNISOLONE SOD SUCC 125MG/2ML VIAL IVP SCH (21:00)
[2020-01-15] VITALS (58 sets, daily range): BP systolic 87–171; BP diastolic 43–75
[2020-01-15] MEDS: AZITHROMYCIN 500MG+NS 250ML 250 ML IV SCH (00:39)
[2020-01-15] MEDS: MEROPENEM 1 GM VIAL IVP SCH ×3 (01:30→18:12)
[2020-01-15 03:21] LABS: ABG BASE EXCESS 0.8 mmol/L (-2.0-3.0); ABG HCO3 27.9 mmol/L (21.0-28.0); ABG OXYGEN SATURATION 88.5 % (95.0-99.0); ABG PCO2 54 mmHg (35-48)
[2020-01-15] MEDS: PROPOFOL 1000 MG/100 ML 100 ML IV PRN ×2 (03:45→21:41)
[2020-01-15 06:03] LABS: BASOPHILS % (AUTO) 0.1 % (0.0-5.0); EOSINOPHILS % (AUTO) 0.1 % (0.0-8.0); HEMATOCRIT 27.8 % (42-54); LYMPHOCYTES % (AUTO) 4.6 % (21.0-51.0); MEAN CORPUSCULAR HGB CONC 33.5 g/dL (32.0-36.0); MEAN CORPUSCULAR VOLUME 95.5 fL (79-99); MONOCYTES % (AUTO) 5.7 % (3.0-13.0); NEUTROPHILS % (AUTO) 88.9 % (40.0-77.0); PLATELET COUNT (AUTO) 132 K/uL (130-400); RED BLOOD CELL COUNT(AUTO) 2.91 MIL/uL (4.50-6.20); RED CELL DISTRIBUTION WIDTH 13.2 % (11.0-15.5); WHITE BLOOD COUNT (AUTO) 14.9 K/uL (4.8-10.8)
[2020-01-15 06:37] LABS: CREATININE 1.8 mg/dL (0.5-1.5); POTASSIUM 5.3 mmol/L (3.5-5.1)
[2020-01-15] MEDS: SODIUM BICARB 8.4% 50ML SYRING 150 MEQ in DEXTROSE 5%-WATER 1,000 ML IVP SCH (06:45)
[2020-01-15 06:55] LABS: ALBUMIN 1.6 g/dL (3.5-5.0); BILIRUBIN,TOTAL 0.2 mg/dL (0.2-1.0); CRP QUANTITATIVE 3.4 mg/L (0.00-9.0); TOTAL PROTEIN, SERUM 4.9 g/dL (6.0-8.3)
[2020-01-15 07:30] LABS: ABG BASE EXCESS 0.8 mmol/L (-2.0-3.0); ABG OXYGEN SATURATION 86.3 % (95.0-99.0); ABG PCO2 55 mmHg (35-48)
[2020-01-15] MEDS ORDERED: ENOXAPARIN SODIUM 100 MG/1 ML SQ SCH (09:00)
[2020-01-15] MEDS ORDERED: SODIUM CHLORIDE 0.9% 100 ML IV ONE (10:01)
[2020-01-15] MEDS: FAMOTIDINE 20MG TAB 20 MG TAB PO SCH ×2 (10:16→21:41)
[2020-01-15] MEDS: ZINC SULFATE 220 CAPSULE PO SCH (10:16)
[2020-01-15] MEDS: ACETYLCYSTEINE 20% 200MG/ML 4ML VIAL NG SCH ×2 (10:16→21:40)
[2020-01-15] MEDS: LISINOPRIL 10 MG TABLET PO SCH (10:16)
[2020-01-15] MEDS: ASCORBIC ACID 500 MG TAB PO SCH (10:16)
[2020-01-15] MEDS ORDERED: FENTANYL 2500MCG+NS 250ML 250 ML IV ONE ×2 (12:10→21:52)
[2020-01-15 13:20] LABS: ABG BASE EXCESS 2.9 mmol/L (-2.0-3.0); ABG HCO3 28.2 mmol/L (21.0-28.0); ABG OXYGEN SATURATION 86.9 % (95.0-99.0); ABG PCO2 46 mmHg (35-48)
[2020-01-15 17:05] LABS: ABG BASE EXCESS 1.9 mmol/L (-2.0-3.0); ABG HCO3 29.4 mmol/L (21.0-28.0); ABG OXYGEN SATURATION 90.7 % (95.0-99.0); ABG PCO2 58 mmHg (35-48)
[2020-01-15] MEDS: METHYLPREDNISOLONE SOD SUCC 125MG/2ML VIAL IVP SCH (21:40)
[2020-01-16] VITALS (29 sets, daily range): BP systolic 119–184; BP diastolic 53–84
[2020-01-16] MEDS ORDERED: SODIUM CHLORIDE 0.9% 1000ML 1,000 ML IV ONE (00:40)
[2020-01-16] MEDS: ROCURONIUM BROMIDE 250 MG in SODIUM CHLORIDE 0.9% 250 ML IV PRN (02:32)
[2020-01-16] MEDS: PROPOFOL 1000 MG/100 ML 100 ML IV PRN ×3 (02:33→22:38)
[2020-01-16] MEDS: MEROPENEM 1 GM VIAL IVP SCH ×2 (02:43→08:43)
[2020-01-16 04:56] LABS: BASOPHILS % (AUTO) 0.1 % (0.0-5.0); HEMATOCRIT 30.4 % (42-54); LYMPHOCYTES % (AUTO) 1.8 % (21.0-51.0); MEAN CORPUSCULAR HEMOGLOBIN 29.9 pg (27.0-33.0); MEAN CORPUSCULAR HGB CONC 31.3 g/dL (32.0-36.0); MEAN CORPUSCULAR VOLUME 95.6 fL (79-99); MONOCYTES % (AUTO) 1.7 % (3.0-13.0); NEUTROPHILS % (AUTO) 95.7 % (40.0-77.0); PLATELET COUNT (AUTO) 117 K/uL (130-400); RED BLOOD CELL COUNT(AUTO) 3.18 MIL/uL (4.50-6.20); RED CELL DISTRIBUTION WIDTH 13.1 % (11.0-15.5); WHITE BLOOD COUNT (AUTO) 13.1 K/uL (4.8-10.8)
[2020-01-16 05:16] LABS: ALBUMIN 1.7 g/dL (3.5-5.0); BILIRUBIN,TOTAL 0.3 mg/dL (0.2-1.0); CREATININE 1.7 mg/dL (0.5-1.5); CRP QUANTITATIVE 13.3 mg/L (0.00-9.0); MAGNESIUM 3.3 mg/dL (1.80-2.40); PHOSPHORUS 5.4 mg/dL (2.5-4.9); TOTAL PROTEIN, SERUM 5.2 g/dL (6.0-8.3)
[2020-01-16 05:45] LABS: POTASSIUM 6.1 mmol/L (3.5-5.1)
[2020-01-16] MEDS ORDERED: CALCIUM CHLORIDE 100 MG/ML 10 ML SYG IVP SCH (06:07)
[2020-01-16] MEDS ORDERED: DEXTROSE 50%-WATER 50 ML DISP.SYRIN IV SCH (06:30)
[2020-01-16] MEDS ORDERED: INSULIN HUMULIN R 100 UNIT/ML 3ML IV SCH (06:30)
[2020-01-16] MEDS ORDERED: SODIUM POLYSTYRENE SULFONATE 15 GM/60 ML ML PO SCH (07:00)
[2020-01-16 07:15] LABS: ABG BASE EXCESS 0.5 mmol/L (-2.0-3.0); ABG HCO3 30.3 mmol/L (21.0-28.0); ABG OXYGEN SATURATION 94.1 % (95.0-99.0); ABG PCO2 73 mmHg (35-48)
[2020-01-16] MEDS: METOPROLOL TARTRATE 1 MG/ML 5ML VIAL IV SCH ×2 (07:28→13:00)
--- NOTE | 2020-01-16 07:38 | NUR ---
06:[address] CHAU OF k+ 5.3 TO 6.1 eLEVATED B/P 180'S / DBP 90'S. HR 130-140'S.COOLER TENDER AN HOUR. INCREASED vERSED 2MG TO 6 MG, HYDRALIZINE GIVEN ...NO RESULTS NOTIFIED OF EKG CHANGES NORMAL ( ADMISSION EKG) TO SEPTAL INFARCT MEDS GIVEN ORDERED
[2020-01-16] MEDS ORDERED: FENTANYL 2500MCG+NS 250ML 250 ML IV ONE ×2 (07:51→18:29)
[2020-01-16] MEDS: ASCORBIC ACID 500 MG TAB PO SCH (08:42)
[2020-01-16] MEDS: ACETYLCYSTEINE 20% 200MG/ML 4ML VIAL NG SCH ×2 (08:42→22:56)
[2020-01-16] MEDS: METHYLPREDNISOLONE SOD SUCC 125MG/2ML VIAL IVP SCH ×2 (08:42→22:55)
[2020-01-16] MEDS: LISINOPRIL 10 MG TABLET PO SCH (08:42)
[2020-01-16] MEDS: FAMOTIDINE 20MG TAB 20 MG TAB PO SCH ×2 (08:42→22:56)
[2020-01-16] MEDS: ZINC SULFATE 220 CAPSULE PO SCH (08:42)
[2020-01-16] MEDS: ENOXAPARIN SODIUM 40 MG/0.4 ML SYRINGE SQ SCH (08:43)
[2020-01-16 17:05] LABS: MEAN CORPUSCULAR HEMOGLOBIN 28.8 pg (27.0-33.0); MEAN CORPUSCULAR HGB CONC 30.3 g/dL (32.0-36.0); MEAN CORPUSCULAR VOLUME 95.1 fL (79-99); PLATELET COUNT (AUTO) 120 K/uL (130-400); RED BLOOD CELL COUNT(AUTO) 3.26 MIL/uL (4.50-6.20); WHITE BLOOD COUNT (AUTO) 14.5 K/uL (4.8-10.8)
[2020-01-16 17:07] LABS: CHLORIDE,URINE RANDOM 46 mmol/L (110-250); POTASSIUM,URINE RANDOM 24 mmol/L (25-125); SODIUM,URINE RANDOM 54 mmol/l (40-220)
[2020-01-16 17:21] LABS: CREATININE 1.7 mg/dL (0.5-1.5); MAGNESIUM 3.3 mg/dL (1.80-2.40); PHOSPHORUS 4.7 mg/dL (2.5-4.9)
[2020-01-16 17:31] LABS: BAND NEUTROPHILS % (MANUAL) 1 % (0-2); MAN.DIFF COMMENT-IMPRESSION MANUAL DIFFERENTIAL; MONOCYTES % (MANUAL) 1 % (2-9); REACTIVE LYMPHOCYTES 1 % (0-0); SEGMENTED NEUTROPHILS % 97 % (40-70)
[2020-01-16 17:32] LABS: PLATELET MORPHOLOGY COMMENT LARGE PLTS PRESENT
[2020-01-16 17:44] LABS: POTASSIUM 6.1 mmol/L (3.5-5.1)
[2020-01-16 19:58] LABS: ABG BASE EXCESS 3.3 mmol/L (-2.0-3.0); ABG HCO3 29.8 mmol/L (21.0-28.0); ABG OXYGEN SATURATION 90.6 % (95.0-99.0); ABG PCO2 53 mmHg (35-48)
[2020-01-17] VITALS (33 sets, daily range): BP systolic 83–193; BP diastolic 56–85
[2020-01-17] MEDS: MEROPENEM 1 GM VIAL IVP SCH ×3 (02:25→18:13)
[2020-01-17] MEDS: PROPOFOL 1000 MG/100 ML 100 ML IV PRN ×2 (02:27→23:10)
[2020-01-17] MEDS ORDERED: FENTANYL 2500MCG+NS 250ML 250 ML IV ONE ×4 (03:57→22:46)
[2020-01-17] MEDS: MIDAZOLAM 100MG-0.9% NS 100ML 100 ML IV SCH ×2 (04:12→22:10)
[2020-01-17 05:48] LABS: HEMATOCRIT 31.2 % (42-54); MEAN CORPUSCULAR HEMOGLOBIN 29.8 pg (27.0-33.0); MEAN CORPUSCULAR HGB CONC 31.1 g/dL (32.0-36.0); MEAN CORPUSCULAR VOLUME 95.7 fL (79-99); PLATELET COUNT (AUTO) 112 K/uL (130-400); RED BLOOD CELL COUNT(AUTO) 3.26 MIL/uL (4.50-6.20); RED CELL DISTRIBUTION WIDTH 13.2 % (11.0-15.5); WHITE BLOOD COUNT (AUTO) 17.3 K/uL (4.8-10.8)
[2020-01-17 06:29] LABS: BAND NEUTROPHILS % (MANUAL) 3 % (0-2); LYMPHOCYTES % (MANUAL) 1 % (22-44); MAN.DIFF COMMENT-IMPRESSION MANUAL DIFFERENTIAL; MONOCYTES % (MANUAL) 1 % (2-9); PLATELET MORPHOLOGY COMMENT SLIGHTLY DECREASED; SEGMENTED NEUTROPHILS % 95 % (40-70)
[2020-01-17 06:30] LABS: ALBUMIN 1.8 g/dL (3.5-5.0); BILIRUBIN,TOTAL 0.3 mg/dL (0.2-1.0); CREATININE 1.7 mg/dL (0.5-1.5); CRP QUANTITATIVE 6.1 mg/L (0.00-9.0); TOTAL PROTEIN, SERUM 5.4 g/dL (6.0-8.3)
[2020-01-17 07:15] LABS: ABG BASE EXCESS 7.7 mmol/L (-2.0-3.0); ABG HCO3 35.9 mmol/L (21.0-28.0); ABG OXYGEN SATURATION 96.2 % (95.0-99.0); ABG PCO2 66 mmHg (35-48)
[2020-01-17] MEDS ORDERED: SODIUM POLYSTYRENE SULFONATE 15 GM/60 ML ML PO SCH (07:45)
[2020-01-17] MEDS: ASCORBIC ACID 500 MG TAB PO SCH (08:52)
[2020-01-17] MEDS: METHYLPREDNISOLONE SOD SUCC 125MG/2ML VIAL IVP SCH ×2 (08:52→22:20)
[2020-01-17] MEDS: ACETYLCYSTEINE 20% 200MG/ML 4ML VIAL NG SCH ×2 (08:52→22:29)
[2020-01-17] MEDS: FAMOTIDINE 20MG TAB 20 MG TAB PO SCH ×2 (08:52→22:10)
[2020-01-17] MEDS: ZINC SULFATE 220 CAPSULE PO SCH (08:52)
[2020-01-17] MEDS: ENOXAPARIN SODIUM 40 MG/0.4 ML SYRINGE SQ SCH (08:53)
[2020-01-17] MEDS: ACETAMINOPHEN 325 MG TAB PO PRN ×2 (10:28→12:08)
--- NOTE | 2020-01-17 13:15 | NUR ---
JARED Sanchez#[id number] Addendum: 01/17/20 at 1316 by DEVI ALFREDO Amended: Links added.
[2020-01-17] MEDS: METOPROLOL TARTRATE 1 MG/ML 5ML VIAL IV SCH ×2 (14:01→19:00)
[2020-01-17] MEDS: ROCURONIUM BROMIDE 250 MG in SODIUM CHLORIDE 0.9% 250 ML IV PRN (22:58)
[2020-01-18] VITALS (53 sets, daily range): BP systolic 85–153; BP diastolic 50–80
[2020-01-18] MEDS: METOPROLOL TARTRATE 1 MG/ML 5ML VIAL IV SCH ×4 (01:00→19:00)
[2020-01-18] MEDS: MEROPENEM 1 GM VIAL IVP SCH ×3 (02:15→18:45)
[2020-01-18] MEDS: PROPOFOL 1000 MG/100 ML 100 ML IV PRN ×3 (04:00→22:33)
[2020-01-18 05:20] LABS: HEMATOCRIT 29.7 % (42-54); MEAN CORPUSCULAR HEMOGLOBIN 30.2 pg (27.0-33.0); MEAN CORPUSCULAR HGB CONC 31.6 g/dL (32.0-36.0); MEAN CORPUSCULAR VOLUME 95.5 fL (79-99); PLATELET COUNT (AUTO) 111 K/uL (130-400); RED BLOOD CELL COUNT(AUTO) 3.11 MIL/uL (4.50-6.20); RED CELL DISTRIBUTION WIDTH 13.3 % (11.0-15.5); WHITE BLOOD COUNT (AUTO) 16.5 K/uL (4.8-10.8)
[2020-01-18 06:05] LABS: BAND NEUTROPHILS % (MANUAL) 2 % (0-2); LYMPHOCYTES % (MANUAL) 1 % (22-44); MAN.DIFF COMMENT-IMPRESSION MANUAL DIFFERENTIAL; MONOCYTES % (MANUAL) 3 % (2-9); PLATELET MORPHOLOGY COMMENT SLIGHTLY DECREASED; SEGMENTED NEUTROPHILS % 94 % (40-70)
[2020-01-18 07:11] LABS: ABG BASE EXCESS 3.7 mmol/L (-2.0-3.0); ABG HCO3 30.1 mmol/L (21.0-28.0); ABG OXYGEN SATURATION 92.3 % (95.0-99.0); ABG PCO2 52 mmHg (35-48)
[2020-01-18] MEDS: MIDAZOLAM 100MG-0.9% NS 100ML 100 ML IV SCH (08:08)
[2020-01-18] MEDS: ENOXAPARIN SODIUM 40 MG/0.4 ML SYRINGE SQ SCH ×2 (08:29→22:35)
[2020-01-18] MEDS: METHYLPREDNISOLONE SOD SUCC 125MG/2ML VIAL IVP SCH ×2 (08:29→22:26)
[2020-01-18] MEDS: ASCORBIC ACID 500 MG TAB PO SCH (08:30)
[2020-01-18] MEDS: ACETYLCYSTEINE 20% 200MG/ML 4ML VIAL NG SCH ×2 (08:30→22:26)
[2020-01-18] MEDS: ZINC SULFATE 220 CAPSULE PO SCH (08:30)
[2020-01-18] MEDS: FAMOTIDINE 20MG TAB 20 MG TAB PO SCH ×2 (08:30→22:29)
[2020-01-18 09:50] LABS: CREATININE 1.6 mg/dL (0.5-1.5); POTASSIUM 5.6 mmol/L (3.5-5.1)
[2020-01-18] MEDS: ROCURONIUM BROMIDE 250 MG in SODIUM CHLORIDE 0.9% 250 ML IV PRN ×2 (10:44→22:25)
[2020-01-18] MEDS ORDERED: FENTANYL 2500MCG+NS 250ML 250 ML IV ONE ×2 (11:52→21:39)
[2020-01-19] VITALS (75 sets, daily range): BP systolic 103–172; BP diastolic 45–90
[2020-01-19] MEDS: METOPROLOL TARTRATE 1 MG/ML 5ML VIAL IV SCH ×4 (01:00→18:52)
[2020-01-19] MEDS: MEROPENEM 1 GM VIAL IVP SCH ×3 (01:54→16:31)
[2020-01-19] MEDS: PROPOFOL 1000 MG/100 ML 100 ML IV PRN ×2 (01:57→06:59)
[2020-01-19 05:06] LABS: HEMATOCRIT 31.8 % (42-54); MEAN CORPUSCULAR HEMOGLOBIN 29.5 pg (27.0-33.0); MEAN CORPUSCULAR HGB CONC 30.2 g/dL (32.0-36.0); MEAN CORPUSCULAR VOLUME 97.8 fL (79-99); PLATELET COUNT (AUTO) 116 K/uL (130-400); RED BLOOD CELL COUNT(AUTO) 3.25 MIL/uL (4.50-6.20); RED CELL DISTRIBUTION WIDTH 13.2 % (11.0-15.5); WHITE BLOOD COUNT (AUTO) 17.5 K/uL (4.8-10.8)
[2020-01-19 05:40] LABS: BAND NEUTROPHILS % (MANUAL) 1 % (0-2); MAN.DIFF COMMENT-IMPRESSION MANUAL DIFFERENTIAL; MONOCYTES % (MANUAL) 2 % (2-9); SEGMENTED NEUTROPHILS % 97 % (40-70)
[2020-01-19 05:41] LABS: PLATELET MORPHOLOGY COMMENT SLIGHTLY DECREASED
[2020-01-19] MEDS ORDERED: FENTANYL 2500MCG+NS 250ML 250 ML IV ONE (07:42)
[2020-01-19] MEDS: ASCORBIC ACID 500 MG TAB PO SCH (08:14)
[2020-01-19] MEDS: ZINC SULFATE 220 CAPSULE PO SCH (08:14)
[2020-01-19] MEDS: ACETYLCYSTEINE 20% 200MG/ML 4ML VIAL NG SCH ×2 (08:14→22:07)
[2020-01-19] MEDS: METHYLPREDNISOLONE SOD SUCC 125MG/2ML VIAL IVP SCH ×2 (08:14→22:08)
[2020-01-19] MEDS: FAMOTIDINE 20MG TAB 20 MG TAB PO SCH ×2 (08:14→22:08)
[2020-01-19] MEDS: ENOXAPARIN SODIUM 40 MG/0.4 ML SYRINGE SQ SCH ×2 (08:15→22:09)
[2020-01-19 10:43] LABS: ABG BASE EXCESS 2.7 mmol/L (-2.0-3.0); ABG HCO3 31.3 mmol/L (21.0-28.0); ABG OXYGEN SATURATION 95.8 % (95.0-99.0); ABG PCO2 66 mmHg (35-48)
[2020-01-19] MEDS ORDERED: CISATRACURIUM BESYLATE 100 MG in SODIUM CHLORIDE 0.9% 100 ML IV SCH (12:00)
[2020-01-19 13:05] LABS: ALBUMIN 1.7 g/dL (3.5-5.0); BILIRUBIN,TOTAL 0.6 mg/dL (0.2-1.0); CREATININE 1.5 mg/dL (0.5-1.5); TOTAL PROTEIN, SERUM 5.4 g/dL (6.0-8.3)
[2020-01-19 13:21] LABS: POTASSIUM 7.3 mmol/L (3.5-5.1)
[2020-01-19 13:27] LABS: ABG BASE EXCESS 3.4 mmol/L (-2.0-3.0); ABG HCO3 29.3 mmol/L (21.0-28.0); ABG OXYGEN SATURATION 92.8 % (95.0-99.0); ABG PCO2 51 mmHg (35-48)
[2020-01-19] MEDS ORDERED: SODIUM CHLORIDE 0.9% 500ML 500 ML IV ONE (13:49)
[2020-01-19 14:15] LABS: ALBUMIN 1.9 g/dL (3.5-5.0); BILIRUBIN,TOTAL 0.4 mg/dL (0.2-1.0); CREATININE 1.3 mg/dL (0.5-1.5); TOTAL PROTEIN, SERUM 5.5 g/dL (6.0-8.3)
[2020-01-19 14:18] LABS: POTASSIUM 6.3 mmol/L (3.5-5.1)
[2020-01-19] MEDS ORDERED: DEXTROSE 50%-WATER 50 ML DISP.SYRIN IV STA (15:08)
[2020-01-19] MEDS ORDERED: SODIUM BICARB 50MEQ 50ML VIAL ONE (15:35)
[2020-01-19] MEDS ORDERED: DEXTROSE 50%-WATER 50 ML DISP.SYRIN IV ONE (15:36)
[2020-01-19] MEDS ORDERED: FUROSEMIDE 10 MG/ML 10ML VIAL ONE (15:37)
[2020-01-19] MEDS ORDERED: SODIUM POLYSTYRENE SULFONATE 15 GM/60 ML ML ONE (15:38)
[2020-01-19] MEDS ORDERED: FUROSEMIDE 10 MG/ML 4ML VIAL IV SCH (17:00)
[2020-01-19] MEDS ORDERED: SODIUM BICARB 8.4% 50ML SYRINGE IVP SCH (17:00)
[2020-01-19] MEDS ORDERED: INSULIN HUMULIN R 100 UNIT/ML 3ML IV SCH (17:00)
[2020-01-19] MEDS ORDERED: SODIUM POLYSTYRENE SULFONATE 15 GM/60 ML ML RC SCH (17:00)
[2020-01-19 22:04] LABS: CREATININE 1.4 mg/dL (0.5-1.5)
[2020-01-19] MEDS: MIDAZOLAM 100MG-0.9% NS 100ML 100 ML IV SCH (22:07)
[2020-01-20] VITALS (78 sets, daily range): BP systolic 98–213; BP diastolic 55–91
[2020-01-20] MEDS: METOPROLOL TARTRATE 1 MG/ML 5ML VIAL IV SCH ×5 (00:10→23:44)
[2020-01-20] MEDS: MEROPENEM 1 GM VIAL IVP SCH ×3 (00:10→18:02)
--- NOTE | 2020-01-20 02:18 | NUR ---
MANAGING ATTORNEY SSOLIS 2ND ICU Addendum: 01/23/20 at 0919 by DEVI KUMARI RTSLT Amended: Links added.
[2020-01-20] MEDS: SODIUM POLYSTYRENE SULFONATE 15 GM/60 ML ML RC SCH (03:06)
[2020-01-20] MEDS: PROPOFOL 1000 MG/100 ML 100 ML IV PRN ×2 (03:12→21:58)
[2020-01-20 05:17] LABS: BASOPHILS % (AUTO) 0.1 % (0.0-5.0); HEMATOCRIT 34.7 % (42-54); LYMPHOCYTES % (AUTO) 1.8 % (21.0-51.0); MEAN CORPUSCULAR HEMOGLOBIN 29.9 pg (27.0-33.0); MEAN CORPUSCULAR HGB CONC 31.4 g/dL (32.0-36.0); MEAN CORPUSCULAR VOLUME 95.1 fL (79-99); MONOCYTES % (AUTO) 3.2 % (3.0-13.0); NEUTROPHILS % (AUTO) 94.1 % (40.0-77.0); PLATELET COUNT (AUTO) 132 K/uL (130-400); RED BLOOD CELL COUNT(AUTO) 3.65 MIL/uL (4.50-6.20); RED CELL DISTRIBUTION WIDTH 12.9 % (11.0-15.5); WHITE BLOOD COUNT (AUTO) 21.5 K/uL (4.8-10.8)
[2020-01-20 05:47] LABS: ALBUMIN 2.2 g/dL (3.5-5.0); BILIRUBIN,TOTAL 0.5 mg/dL (0.2-1.0); CREATININE 1.4 mg/dL (0.5-1.5); POTASSIUM 5.5 mmol/L (3.5-5.1); TOTAL PROTEIN, SERUM 6.3 g/dL (6.0-8.3)
[2020-01-20] MEDS: FENTANYL 2500MCG+NS 250ML 250 ML IV SCH ×2 (05:53→15:37)
[2020-01-20 07:33] LABS: ABG BASE EXCESS 6.9 mmol/L (-2.0-3.0); ABG HCO3 31.4 mmol/L (21.0-28.0); ABG OXYGEN SATURATION 88.2 % (95.0-99.0); ABG PCO2 44 mmHg (35-48)
[2020-01-20] MEDS: METHYLPREDNISOLONE SOD SUCC 125MG/2ML VIAL IVP SCH ×2 (08:57→22:00)
[2020-01-20] MEDS: ACETYLCYSTEINE 20% 200MG/ML 4ML VIAL NG SCH ×2 (08:57→22:02)
[2020-01-20] MEDS: ASCORBIC ACID 500 MG TAB PO SCH (08:58)
[2020-01-20] MEDS: ZINC SULFATE 220 CAPSULE PO SCH (08:58)
[2020-01-20] MEDS: FAMOTIDINE 20MG TAB 20 MG TAB PO SCH ×2 (08:58→22:00)
[2020-01-20] MEDS: ENOXAPARIN SODIUM 40 MG/0.4 ML SYRINGE SQ SCH ×2 (09:00→21:59)
--- NOTE | 2020-01-20 13:25 | NUR ---
SPOKE TO KATHERINE MCCORMICK, SISTER OF THE PATIENT ASKING FOR PERMISSION FOR [facility] AND FOR TRANSFER TO HIGHER LEVEL OF CARE. JOSÉ MIGUEL ROSADO WITNESSED THE VERBAL CONSENT
--- NOTE | 2020-01-20 13:30 | NUR ---
TRANSFER CALLED TO [facility] @ [phone] SPOKE WITH CONRAD. SHE STATED THAT THEY DON'T DO ECMO, TRANSFER DENIED.
--- NOTE | 2020-01-20 13:32 | NUR ---
TRANSFER CALLED [facility] IN TRANSFER CENTER @ [phone] SPOKE WITH ROVERTO GAVE HER PERTINENT INFORMATION, GAVE HER DR. MCDONALD'S NUMBER FOR A POTENTIAL DOC TO DOC. AWAITING CALL BACK
--- NOTE | 2020-01-20 14:11 | NUR ---
TRANSFER SPOKE TO BERNABE AT [facility] IN [place], THEY DO NOT DO ECMO, TRANSFER DENIED
--- NOTE | 2020-01-20 14:15 | NUR ---
TRANSFER CALLED [facility] SPOKE WITH CHANTELLE NET TRAINER, SHE STATED THEY DON'T DO ECMO, TRANSFER DENIED
--- NOTE | 2020-01-20 14:23 | NUR ---
TRANSFER CALLED [facility] SPOKE WITH ALMA @ [phone] TO INITIATE A TRANSFER TO [facility]. GAVE HER PERTINENT INFO, DECLINED DUE TO NO BEDS
--- NOTE | 2020-01-20 15:28 | NUR ---
Nurse spoke with ECMO coordintor in [place] at [facility] yesterday 01/18 and he said the patient has been intubated for too long as they typically only take pts less than 7 days and pt has been vented for 8 days (8-5 to -).
[2020-01-20] MEDS: MIDAZOLAM 100MG-0.9% NS 100ML 100 ML IV SCH (21:59)
[2020-01-21] VITALS (55 sets, daily range): BP systolic 92–174; BP diastolic 57–98
[2020-01-21] MEDS: MEROPENEM 1 GM VIAL IVP SCH ×3 (02:06→17:40)
[2020-01-21] MEDS: PROPOFOL 1000 MG/100 ML 100 ML IV PRN ×3 (02:06→22:06)
[2020-01-21] MEDS: SODIUM POLYSTYRENE SULFONATE 15 GM/60 ML ML RC SCH (02:34)
[2020-01-21] MEDS: FENTANYL 2500MCG+NS 250ML 250 ML IV SCH (02:34)
[2020-01-21] MEDS: METOPROLOL TARTRATE 1 MG/ML 5ML VIAL IV SCH ×2 (05:21→13:00)
[2020-01-21 06:05] LABS: HEMATOCRIT 30.9 % (42-54); MEAN CORPUSCULAR HGB CONC 31.1 g/dL (32.0-36.0); MEAN CORPUSCULAR VOLUME 96.6 fL (79-99); PLATELET COUNT (AUTO) 96 K/uL (130-400); RED CELL DISTRIBUTION WIDTH 12.9 % (11.0-15.5); WHITE BLOOD COUNT (AUTO) 19.7 K/uL (4.8-10.8)
[2020-01-21 06:21] LABS: BAND NEUTROPHILS % (MANUAL) 8 % (0-2); LYMPHOCYTES % (MANUAL) 2 % (22-44); MAN.DIFF COMMENT-IMPRESSION MANUAL DIFFERENTIAL; MONOCYTES % (MANUAL) 3 % (2-9); SEGMENTED NEUTROPHILS % 87 % (40-70)
[2020-01-21 06:31] LABS: ALBUMIN 1.8 g/dL (3.5-5.0); BILIRUBIN,TOTAL 0.3 mg/dL (0.2-1.0); CREATININE 1.1 mg/dL (0.5-1.5); POTASSIUM 4.4 mmol/L (3.5-5.1); TOTAL PROTEIN, SERUM 5.5 g/dL (6.0-8.3)
[2020-01-21 08:16] LABS: ABG BASE EXCESS 4.8 mmol/L (-2.0-3.0); ABG HCO3 29.1 mmol/L (21.0-28.0); ABG OXYGEN SATURATION 91.6 % (95.0-99.0); ABG PCO2 42 mmHg (35-48)
[2020-01-21] MEDS: METHYLPREDNISOLONE SOD SUCC 125MG/2ML VIAL IVP SCH ×3 (08:33→22:08)
[2020-01-21] MEDS: ACETYLCYSTEINE 20% 200MG/ML 4ML VIAL NG SCH ×2 (08:33→22:07)
[2020-01-21] MEDS: ZINC SULFATE 220 CAPSULE PO SCH (08:34)
[2020-01-21] MEDS: FAMOTIDINE 20MG TAB 20 MG TAB PO SCH ×2 (08:34→22:07)
[2020-01-21] MEDS: ASCORBIC ACID 500 MG TAB PO SCH (08:34)
[2020-01-21] MEDS: ENOXAPARIN SODIUM 40 MG/0.4 ML SYRINGE SQ SCH ×2 (08:35→22:06)
[2020-01-21 13:59] LABS: ABG BASE EXCESS 2.1 mmol/L (-2.0-3.0); ABG HCO3 26.6 mmol/L (21.0-28.0); ABG OXYGEN SATURATION 95.5 % (95.0-99.0); ABG PCO2 41 mmHg (35-48)
[2020-01-21 16:30] LABS: CREATININE 1.1 mg/dL (0.5-1.5); POTASSIUM 4.3 mmol/L (3.5-5.1)
[2020-01-21] MEDS ORDERED: DEXTROSE 5% IV SCH (16:30)
[2020-01-21] MEDS ORDERED: NOREPINEPHRINE BITARTRATE 16 MG in DEXTROSE 5%-WATER 250 ML IV SCH (16:30)
[2020-01-21] MEDS ORDERED: MIDAZOLAM HCL IV SCH (16:30)
[2020-01-21] MEDS ORDERED: WATER IV SCH (16:30)
[2020-01-21] MEDS ORDERED: [UNRECOGNIZED DRUG - OTHER] IVP SCH (16:45)
[2020-01-21] MEDS ORDERED: FENTANYL CITRATE IVP SCH (16:45)
[2020-01-21] MEDS ORDERED: FENTANYL IVP SCH (16:45)
[2020-01-21] MEDS ORDERED: FENTANYL 2500MCG+NS 250ML 250 ML IV ONE (21:18)
[2020-01-21] MEDS: MIDAZOLAM 100MG-0.9% NS 100ML 100 ML IV SCH (22:04)
[2020-01-22] VITALS (36 sets, daily range): BP systolic 107–175; BP diastolic 69–89
[2020-01-22] MEDS: SODIUM POLYSTYRENE SULFONATE 15 GM/60 ML ML RC SCH (00:15)
[2020-01-22] MEDS: MEROPENEM 1 GM VIAL IVP SCH (00:22)
[2020-01-22] MEDS: METOPROLOL TARTRATE 1 MG/ML 5ML VIAL IV SCH ×4 (00:25→17:44)
[2020-01-22] MEDS: PROPOFOL 1000 MG/100 ML 100 ML IV PRN ×2 (02:56→07:01)
--- NOTE | 2020-01-22 05:54 | NUR ---
Attempted to turn pt on back but pt was not tolerating the turn. O2 sats 88%
[2020-01-22 06:18] LABS: HEMATOCRIT 29.5 % (42-54); MEAN CORPUSCULAR HEMOGLOBIN 29.5 pg (27.0-33.0); MEAN CORPUSCULAR HGB CONC 30.8 g/dL (32.0-36.0); MEAN CORPUSCULAR VOLUME 95.8 fL (79-99); PLATELET COUNT (AUTO) 93 K/uL (130-400); RED BLOOD CELL COUNT(AUTO) 3.08 MIL/uL (4.50-6.20); RED CELL DISTRIBUTION WIDTH 12.9 % (11.0-15.5); WHITE BLOOD COUNT (AUTO) 16.9 K/uL (4.8-10.8)
[2020-01-22 06:59] LABS: ALBUMIN 1.7 g/dL (3.5-5.0); BILIRUBIN,TOTAL 0.3 mg/dL (0.2-1.0); POTASSIUM 4.6 mmol/L (3.5-5.1); TOTAL PROTEIN, SERUM 5.4 g/dL (6.0-8.3)
[2020-01-22] MEDS: MIDAZOLAM 100MG-0.9% NS 100ML 100 ML IV SCH (07:01)
[2020-01-22 07:28] LABS: ABG BASE EXCESS 3.9 mmol/L (-2.0-3.0); ABG HCO3 29.5 mmol/L (21.0-28.0); ABG OXYGEN SATURATION 95.3 % (95.0-99.0); ABG PCO2 48 mmHg (35-48)
[2020-01-22] MEDS ORDERED: FENTANYL 2500MCG+NS 250ML 250 ML IV ONE ×2 (08:02→21:24)
[2020-01-22] MEDS: ENOXAPARIN SODIUM 40 MG/0.4 ML SYRINGE SQ SCH ×2 (09:00→21:13)
[2020-01-22] MEDS: ASCORBIC ACID 500 MG TAB PO SCH (09:04)
[2020-01-22] MEDS: ZINC SULFATE 220 CAPSULE PO SCH (09:04)
[2020-01-22] MEDS: ACETYLCYSTEINE 20% 200MG/ML 4ML VIAL NG SCH ×2 (09:04→21:12)
[2020-01-22] MEDS: METHYLPREDNISOLONE SOD SUCC 125MG/2ML VIAL IVP SCH ×2 (09:04→21:11)
[2020-01-22] MEDS: FAMOTIDINE 20MG TAB 20 MG TAB PO SCH ×2 (09:04→21:13)
[2020-01-22 10:09] LABS: BAND NEUTROPHILS % (MANUAL) 1 % (0-2); LYMPHOCYTES % (MANUAL) 3 % (22-44); MONOCYTES % (MANUAL) 3 % (2-9); SEGMENTED NEUTROPHILS % 93 % (40-70)
[2020-01-22 10:11] LABS: MAN.DIFF COMMENT-IMPRESSION MANUAL DIFFERENTIAL
[2020-01-22 10:12] LABS: PLATELET MORPHOLOGY COMMENT DECREASED
--- NOTE | 2020-01-22 11:10 | NUR ---
Family Spoke with Norah, the contact for patient and spoke for roughly 30-45 and provided an update. Pt has been declined ECMO at facility in [facility] due to length of time intubated. Will follow up with Dr. Cardona about next steps for patient as he has needed high PEEP and [id number] for the duration of being in the ICU to keep sats >94%.
[2020-01-22 12:04] LABS: CRP QUANTITATIVE 18.9 mg/L (0.00-9.0)
[2020-01-22] MEDS ORDERED: COMPOUND NARC IV MISC 1 EACH IVSOLN MISC PRN (20:45)
[2020-01-23] VITALS (22 sets, daily range): BP systolic 66–177; BP diastolic 65–90
[2020-01-23] MEDS: DEXTROSE 5%-WATER 1,000 ML IV SCH ×2 (01:09→09:57)
[2020-01-23] MEDS: SODIUM POLYSTYRENE SULFONATE 15 GM/60 ML ML RC SCH (01:11)
[2020-01-23] MEDS: METOPROLOL TARTRATE 1 MG/ML 5ML VIAL IV SCH ×4 (01:12→18:21)
--- NOTE | 2020-01-23 03:30 | NUR ---
PRONE PT PRONED. BATHED. STABLE.
[2020-01-23 04:01] LABS: ABG BASE EXCESS -0.6 mmol/L (-2.0-3.0); ABG HCO3 25.1 mmol/L (21.0-28.0); ABG OXYGEN SATURATION 90.8 % (95.0-99.0); ABG PCO2 45 mmHg (35-48)
[2020-01-23 04:17] LABS: BASOPHILS % (AUTO) 0.1 % (0.0-5.0); HEMATOCRIT 28.1 % (42-54); LYMPHOCYTES % (AUTO) 3.3 % (21.0-51.0); MEAN CORPUSCULAR HEMOGLOBIN 29.7 pg (27.0-33.0); MEAN CORPUSCULAR HGB CONC 31.3 g/dL (32.0-36.0); MEAN CORPUSCULAR VOLUME 94.9 fL (79-99); MONOCYTES % (AUTO) 1.9 % (3.0-13.0); NEUTROPHILS % (AUTO) 94.1 % (40.0-77.0); PLATELET COUNT (AUTO) 97 K/uL (130-400); RED BLOOD CELL COUNT(AUTO) 2.96 MIL/uL (4.50-6.20); RED CELL DISTRIBUTION WIDTH 12.6 % (11.0-15.5); WHITE BLOOD COUNT (AUTO) 13.9 K/uL (4.8-10.8)
[2020-01-23 04:33] LABS: ALBUMIN 1.8 g/dL (3.5-5.0); BILIRUBIN,TOTAL 0.3 mg/dL (0.2-1.0); CRP QUANTITATIVE 14.4 mg/L (0.00-9.0); POTASSIUM 4.9 mmol/L (3.5-5.1)
[2020-01-23] MEDS: FAMOTIDINE 20MG TAB 20 MG TAB PO SCH ×2 (07:56→21:00)
[2020-01-23] MEDS: ACETYLCYSTEINE 20% 200MG/ML 4ML VIAL NG SCH ×2 (07:57→21:00)
[2020-01-23] MEDS: METHYLPREDNISOLONE SOD SUCC 125MG/2ML VIAL IVP SCH (07:57)
[2020-01-23] MEDS: ASCORBIC ACID 500 MG TAB PO SCH (07:57)
[2020-01-23] MEDS: ZINC SULFATE 220 CAPSULE PO SCH (07:57)
[2020-01-23 08:01] LABS: ABG BASE EXCESS 2.7 mmol/L (-2.0-3.0); ABG HCO3 29.5 mmol/L (21.0-28.0); ABG OXYGEN SATURATION 90.6 % (95.0-99.0); ABG PCO2 54 mmHg (35-48)
[2020-01-23] MEDS: ENOXAPARIN SODIUM 40 MG/0.4 ML SYRINGE SQ SCH ×2 (09:59→21:00)
--- NOTE | 2020-01-23 17:56 | NUR ---
Family Call Spoke with Norah, the POC for pt and provided update. Dr. Cardona also spoke with Norah and answered all the questions that Norah had listed. Dr. Cardona confirmed pt is not a candidate for ECMO.
[2020-01-23 20:50] LABS: ABG BASE EXCESS 0.6 mmol/L (-2.0-3.0); ABG HCO3 27.2 mmol/L (21.0-28.0); ABG OXYGEN SATURATION 89.4 % (95.0-99.0); ABG PCO2 51 mmHg (35-48)
[2020-01-23] MEDS: METHYLPREDNISOLONE SOD SUCC 40MG/ML 1ML IVP SCH (21:00)
--- NOTE | 2020-01-23 21:02 | NUR ---
CONTINUE PRONE POSITION CONTINUE PRONE, RE-EVALUATE FOR SUPINE @0400
[2020-01-24] VITALS (51 sets, daily range): BP systolic 1–175; BP diastolic 0–114
[2020-01-24] MEDS: DEXTROSE 5%-WATER 1,000 ML IV SCH ×2 (01:31→07:47)
[2020-01-24] MEDS: SODIUM POLYSTYRENE SULFONATE 15 GM/60 ML ML RC SCH (01:31)
[2020-01-24] MEDS: METOPROLOL TARTRATE 1 MG/ML 5ML VIAL IV SCH ×4 (01:32→20:14)
[2020-01-24] MEDS ORDERED: SODIUM CHLORIDE 0.9% 500ML 500 ML IV ONE ×2 (04:52→17:35)
[2020-01-24 05:33] LABS: BASOPHILS % (AUTO) 0.1 % (0.0-5.0); HEMATOCRIT 31.8 % (42-54); LYMPHOCYTES % (AUTO) 1.9 % (21.0-51.0); MEAN CORPUSCULAR HEMOGLOBIN 29.6 pg (27.0-33.0); MEAN CORPUSCULAR HGB CONC 31.1 g/dL (32.0-36.0); MEAN CORPUSCULAR VOLUME 95.2 fL (79-99); MONOCYTES % (AUTO) 4.2 % (3.0-13.0); NEUTROPHILS % (AUTO) 92.4 % (40.0-77.0); PLATELET COUNT (AUTO) 131 K/uL (130-400); RED BLOOD CELL COUNT(AUTO) 3.34 MIL/uL (4.50-6.20); RED CELL DISTRIBUTION WIDTH 12.6 % (11.0-15.5); WHITE BLOOD COUNT (AUTO) 22.1 K/uL (4.8-10.8)
[2020-01-24 05:51] LABS: ALBUMIN 1.9 g/dL (3.5-5.0); BILIRUBIN,TOTAL 0.4 mg/dL (0.2-1.0); CREATININE 0.9 mg/dL (0.5-1.5); MAGNESIUM 1.9 mg/dL (1.80-2.40); POTASSIUM 4.8 mmol/L (3.5-5.1); TOTAL PROTEIN, SERUM 5.8 g/dL (6.0-8.3)
[2020-01-24] MEDS ORDERED: FENTANYL 2500MCG+NS 250ML 250 ML IV ONE ×2 (05:54→18:01)
[2020-01-24 07:14] LABS: ABG BASE EXCESS -1.5 mmol/L (-2.0-3.0); ABG HCO3 28.4 mmol/L (21.0-28.0); ABG OXYGEN SATURATION 96.9 % (95.0-99.0); ABG PCO2 72 mmHg (35-48)
[2020-01-24] MEDS: METHYLPREDNISOLONE SOD SUCC 40MG/ML 1ML IVP SCH ×2 (08:20→20:46)
[2020-01-24] MEDS: ACETYLCYSTEINE 20% 200MG/ML 4ML VIAL NG SCH ×2 (08:20→20:46)
[2020-01-24] MEDS: FAMOTIDINE 20MG TAB 20 MG TAB PO SCH ×2 (08:21→20:47)
[2020-01-24] MEDS: ENOXAPARIN SODIUM 40 MG/0.4 ML SYRINGE SQ SCH ×2 (08:21→20:47)
[2020-01-24] MEDS: ASCORBIC ACID 500 MG TAB PO SCH (08:21)
[2020-01-24] MEDS: ZINC SULFATE 220 CAPSULE PO SCH (08:21)
[2020-01-24] MEDS: FLUCONAZOLE 200 MG/NS 100 ML 100 ML IV SCH (08:22)
--- NOTE | 2020-01-24 10:31 | NUR ---
RD FOLLOW UP Pt tube feeding held this AM. Pending RN callback. Pt remains intubated. Monitored labs: WBC 22.1, BUN 42, BG 131, Ca 8.0, Alb 1.9. RD to follow up Please notify as additional nutrition concerns arise. Thank you. Addendum: 01/24/20 at [address] Amended: Links added.
[2020-01-24 11:26] LABS: ABG BASE EXCESS -1.4 mmol/L (-2.0-3.0); ABG HCO3 28.5 mmol/L (21.0-28.0); ABG OXYGEN SATURATION 97.5 % (95.0-99.0); ABG PCO2 73 mmHg (35-48)
[2020-01-24 13:28] LABS: ABG BASE EXCESS 0.2 mmol/L (-2.0-3.0); ABG HCO3 26.1 mmol/L (21.0-28.0); ABG OXYGEN SATURATION 93.4 % (95.0-99.0); ABG PCO2 47 mmHg (35-48)
--- NOTE | 2020-01-24 14:25 | NUR ---
Transfer Request Transfer request to [facility] [place] [place] was initiated. Spoke to Veronica Greco RN at transfer center phone number . Information requested was faxed to . Information will be given to Dr. Luis Carlos Kennedy Thoracic Surgeon who will contact Dr. Cardona.
--- NOTE | 2020-01-24 14:45 | NUR ---
MD Notification Dr. Cardona notified that transfer request was initiated and to expect a call from Dr. Warren Kennedy. Dr. Cardona verbalized understanding will await his phone call.
--- NOTE | 2020-01-24 15:57 | NUR ---
FAMILY Spoke to Norah, the POC for the pt. Attempted to video call Norah so she should see pt, however, we could not connect due to technical difficulties with Norah's phone or pts phone. Since phone call, pt has been turned from supine to prone. Nurse told Norah they will attempt to call on phone or use hospital portable video tablet once pt is supine again.
[2020-01-25] VITALS (61 sets, daily range): BP systolic 105–213; BP diastolic 67–108
[2020-01-25] MEDS: METOPROLOL TARTRATE 1 MG/ML 5ML VIAL IV SCH ×4 (00:19→18:39)
[2020-01-25] MEDS: SODIUM POLYSTYRENE SULFONATE 15 GM/60 ML ML RC SCH (00:19)
[2020-01-25 03:28] LABS: ABG BASE EXCESS 1.1 mmol/L (-2.0-3.0); ABG HCO3 27.2 mmol/L (21.0-28.0); ABG OXYGEN SATURATION 91.3 % (95.0-99.0); ABG PCO2 49 mmHg (35-48)
[2020-01-25 05:00] LABS: BASOPHILS % (AUTO) 0.1 % (0.0-5.0); EOSINOPHILS % (AUTO) 0.2 % (0.0-8.0); HEMATOCRIT 25.1 % (42-54); LYMPHOCYTES % (AUTO) 2.6 % (21.0-51.0); MEAN CORPUSCULAR HEMOGLOBIN 29.6 pg (27.0-33.0); MEAN CORPUSCULAR HGB CONC 31.9 g/dL (32.0-36.0); MONOCYTES % (AUTO) 3.4 % (3.0-13.0); NEUTROPHILS % (AUTO) 92.5 % (40.0-77.0); PLATELET COUNT (AUTO) 104 K/uL (130-400); RED CELL DISTRIBUTION WIDTH 12.4 % (11.0-15.5); WHITE BLOOD COUNT (AUTO) 12.7 K/uL (4.8-10.8)
[2020-01-25 05:33] LABS: CRP QUANTITATIVE 14.8 mg/L (0.00-9.0)
[2020-01-25 07:25] LABS: ABG BASE EXCESS 0.5 mmol/L (-2.0-3.0); ABG HCO3 26.5 mmol/L (21.0-28.0); ABG OXYGEN SATURATION 91.1 % (95.0-99.0); ABG PCO2 48 mmHg (35-48)
[2020-01-25] MEDS: ACETYLCYSTEINE 20% 200MG/ML 4ML VIAL NG SCH ×2 (08:12→21:22)
[2020-01-25] MEDS: METHYLPREDNISOLONE SOD SUCC 40MG/ML 1ML IVP SCH ×2 (08:12→21:22)
[2020-01-25] MEDS: ENOXAPARIN SODIUM 40 MG/0.4 ML SYRINGE SQ SCH ×2 (08:12→21:22)
[2020-01-25] MEDS: ASCORBIC ACID 500 MG TAB PO SCH (08:13)
[2020-01-25] MEDS: FAMOTIDINE 20MG TAB 20 MG TAB PO SCH ×2 (08:13→21:22)
[2020-01-25] MEDS: FLUCONAZOLE 200 MG/NS 100 ML 100 ML IV SCH (08:13)
[2020-01-25] MEDS: ZINC SULFATE 220 CAPSULE PO SCH (08:13)
[2020-01-25] MEDS ORDERED: SODIUM CHLORIDE 0.9% 100 ML IV ONE (08:29)
--- NOTE | 2020-01-25 10:13 | NUR ---
Repositioning Pt was in prone position since 5 pm last night. Gathered appropriate number of people, RT at the bedside. Pt was placed in supine position. Face very swollen, DTI (RT chest/neck) was noted, abdominal bruising, petechiae, skin tears noted as well. Applied foam dressing. Mouth suctioned, face cleaned, heels on the pillow. Will provide frequent turns, mouth care (q2 hours.) (ETT tube seems to be out advanced, Xray done). Bed in low position, alarms are on, call salinas in reach, continue to monitor
[2020-01-25] MEDS: PROPOFOL 1000 MG/100 ML 100 ML IV PRN ×2 (11:06→16:24)
--- NOTE | 2020-01-25 16:36 | NUR ---
SALGADO EXCHANGE Addendum: 01/25/20 at 1637 by CAITIE Vernon RN Amended: Links added.
--- NOTE | 2020-01-25 16:56 | NUR ---
PT BELONGINGS PT BELONGINGS, INCLUDING PHONE, CIGARETTE MAKING MACHINE OPERATOR/CORDS, 2VISA CARDS, INHAL. MEDS, NASAL SPRAY, GUM, CLOTHES, SHOES WERE GIVEN TO THE SECURITY. PAPERWORK IN THE CHART
[2020-01-26] VITALS (58 sets, daily range): BP systolic 118–197; BP diastolic 71–97
[2020-01-26] MEDS: SODIUM POLYSTYRENE SULFONATE 15 GM/60 ML ML RC SCH (00:15)
[2020-01-26] MEDS: METOPROLOL TARTRATE 1 MG/ML 5ML VIAL IV SCH ×4 (01:00→19:00)
[2020-01-26 03:42] LABS: ABG BASE EXCESS 1.7 mmol/L (-2.0-3.0); ABG HCO3 27.6 mmol/L (21.0-28.0); ABG OXYGEN SATURATION 92.9 % (95.0-99.0); ABG PCO2 48 mmHg (35-48)
[2020-01-26 03:44] LABS: HEMATOCRIT 30.9 % (42-54); MEAN CORPUSCULAR HEMOGLOBIN 29.2 pg (27.0-33.0); MEAN CORPUSCULAR HGB CONC 32.4 g/dL (32.0-36.0); MEAN CORPUSCULAR VOLUME 90.4 fL (79-99); PLATELET COUNT (AUTO) 117 K/uL (130-400); RED BLOOD CELL COUNT(AUTO) 3.42 MIL/uL (4.50-6.20); RED CELL DISTRIBUTION WIDTH 12.7 % (11.0-15.5); WHITE BLOOD COUNT (AUTO) 12.4 K/uL (4.8-10.8)
[2020-01-26 04:05] LABS: ALBUMIN 1.7 g/dL (3.5-5.0); BILIRUBIN,TOTAL 0.4 mg/dL (0.2-1.0); CREATININE 0.8 mg/dL (0.5-1.5); POTASSIUM 4.6 mmol/L (3.5-5.1); TOTAL PROTEIN, SERUM 5.5 g/dL (6.0-8.3)
[2020-01-26 04:12] LABS: BAND NEUTROPHILS % (MANUAL) 4 % (0-2); LYMPHOCYTES % (MANUAL) 4 % (22-44); MONOCYTES % (MANUAL) 3 % (2-9); SEGMENTED NEUTROPHILS % 89 % (40-70)
[2020-01-26 04:13] LABS: MAN.DIFF COMMENT-IMPRESSION MANUAL DIFFERENTIAL; PLATELET MORPHOLOGY COMMENT SLIGHTLY DECREASED
[2020-01-26] MEDS: FLUCONAZOLE 200 MG/NS 100 ML 100 ML IV SCH (08:36)
[2020-01-26] MEDS: ENOXAPARIN SODIUM 40 MG/0.4 ML SYRINGE SQ SCH ×2 (08:36→22:32)
[2020-01-26] MEDS: PROPOFOL 1000 MG/100 ML 100 ML IV PRN ×2 (08:36→13:45)
[2020-01-26] MEDS: FAMOTIDINE 20MG TAB 20 MG TAB PO SCH ×2 (08:37→22:32)
[2020-01-26] MEDS: ACETYLCYSTEINE 20% 200MG/ML 4ML VIAL NG SCH ×2 (08:37→22:32)
[2020-01-26] MEDS: ASCORBIC ACID 500 MG TAB PO SCH (08:37)
[2020-01-26] MEDS: METHYLPREDNISOLONE SOD SUCC 40MG/ML 1ML IVP SCH ×2 (08:37→22:32)
[2020-01-26] MEDS: ZINC SULFATE 220 CAPSULE PO SCH (08:37)
[2020-01-26] MEDS ORDERED: SODIUM CHLORIDE 0.9% 500ML 500 ML IV ONE (09:17)
--- NOTE | 2020-01-26 12:50 | NUR ---
RD FOLLOW UP Tube feeding resumed and tolerated at Goal Rate of Nepro @50mls/hr. Free H2O Flush at 200mls. Pt receiving 1200mL, 2160kcal, 97gm Protein, 872ml H2O from formula. LBM 01/11/20, Hypoactive bowel sounds, abdomen non-tender as per EMR. Nepro with good source of fiber. Recommend continue tube feeding. Recommend stool softener/laxative or prokinetic agent as medically feasible RD to continue to monitor. Please notify as additional nutrition concerns arise. Thank you. Addendum: 01/26/20 at [address] Amended: Links added.
[2020-01-27] VITALS (69 sets, daily range): BP systolic 105–203; BP diastolic 58–127
[2020-01-27] MEDS: SODIUM POLYSTYRENE SULFONATE 15 GM/60 ML ML RC SCH ×2 (01:32→23:49)
[2020-01-27] MEDS: METOPROLOL TARTRATE 1 MG/ML 5ML VIAL IV SCH ×5 (01:33→23:50)
[2020-01-27 04:07] LABS: BASOPHILS % (AUTO) 0.1 % (0.0-5.0); EOSINOPHILS % (AUTO) 0.1 % (0.0-8.0); HEMATOCRIT 26.6 % (42-54); LYMPHOCYTES % (AUTO) 2.3 % (21.0-51.0); MEAN CORPUSCULAR HEMOGLOBIN 29.7 pg (27.0-33.0); MEAN CORPUSCULAR HGB CONC 32.7 g/dL (32.0-36.0); MEAN CORPUSCULAR VOLUME 90.8 fL (79-99); MONOCYTES % (AUTO) 3.4 % (3.0-13.0); NEUTROPHILS % (AUTO) 91.9 % (40.0-77.0); PLATELET COUNT (AUTO) 151 K/uL (130-400); RED BLOOD CELL COUNT(AUTO) 2.93 MIL/uL (4.50-6.20); RED CELL DISTRIBUTION WIDTH 13.3 % (11.0-15.5); WHITE BLOOD COUNT (AUTO) 13.4 K/uL (4.8-10.8)
[2020-01-27 04:10] LABS: ABG BASE EXCESS 0.7 mmol/L (-2.0-3.0); ABG OXYGEN SATURATION 91.2 % (95.0-99.0); ABG PCO2 44 mmHg (35-48)
[2020-01-27 04:26] LABS: ALBUMIN 1.8 g/dL (3.5-5.0); BILIRUBIN,TOTAL 0.2 mg/dL (0.2-1.0); CREATININE 0.8 mg/dL (0.5-1.5); CRP QUANTITATIVE 18.7 mg/L (0.00-9.0); POTASSIUM 4.5 mmol/L (3.5-5.1); TOTAL PROTEIN, SERUM 5.7 g/dL (6.0-8.3)
[2020-01-27] MEDS: FLUCONAZOLE 200 MG/NS 100 ML 100 ML IV SCH (09:16)
[2020-01-27] MEDS: ENOXAPARIN SODIUM 40 MG/0.4 ML SYRINGE SQ SCH ×2 (09:17→20:37)
[2020-01-27] MEDS: ACETYLCYSTEINE 20% 200MG/ML 4ML VIAL NG SCH ×2 (09:17→20:44)
[2020-01-27] MEDS: FAMOTIDINE 20MG TAB 20 MG TAB PO SCH ×2 (09:17→20:44)
[2020-01-27] MEDS: ZINC SULFATE 220 CAPSULE PO SCH (09:17)
[2020-01-27] MEDS: METHYLPREDNISOLONE SOD SUCC 40MG/ML 1ML IVP SCH ×2 (09:17→20:44)
[2020-01-27] MEDS: ASCORBIC ACID 500 MG TAB PO SCH (09:17)
[2020-01-27] MEDS: DEXTROSE 5% IV SCH ×2 (09:36→20:36)
[2020-01-27] MEDS: WATER IV SCH ×2 (09:36→20:36)
[2020-01-27] MEDS: MIDAZOLAM HCL IV SCH ×2 (09:36→20:36)
[2020-01-27] MEDS: FENTANYL CITRATE PF 0.05 MG/ML 2,500 MCG in DEXTROSE 5%-WATER 250 ML IVP SCH ×3 (11:49→20:37)
[2020-01-27] MEDS: CISATRACURIUM BESYLATE 100 MG in SODIUM CHLORIDE 0.9% 100 ML IV SCH (13:28)
--- NOTE | 2020-01-27 15:39 | NUR ---
CHANGE CHANGE AT 1ROUND 11 AM PT STARTED TO DESAT, REMAINS IN 70-80S. BREATHING OVER THE VENT. SEDATION IS ON MAX. CALLED AND NOTIFIED, SAID WILL COME RIGHT NOW AT THE BEDSIDE. XRAY DONE, PT WAS PLACED ON PARALYTIC, O2 SATS INCREASED, VS STABILIZED. AT 1515 PT WAS TURNED IN PRONE POSITION. VS REMAIN STABLE FAMILY WAS CALLED (KATHERINE, SISTER) AND UPDATED VIA [employer]. ALL QUESTIONS ARE ANSWERED
--- NOTE | 2020-01-27 15:41 | NUR ---
[address] MCDONALD RECEIVED, TO CALL [facility] TO TRANSFER FOR ECMO AND TRANSPLANT. 1505 CALLED [facility] AND SPOKE TO [facility] ( ) [facility], WILLING TO HELP.SHE REQUESTED RECORDS, NAME AND NUMBER OF PHYSICIAN AND DINING SERVICES MANAGER. PROVIDED THE NAME AND NUMBER FOR DR MCDONALD AND NISREEN BANDA. MEDICAL RECORDS FAXED AT [phone] TO ( ). [facility] STATED WILL CALL US BACK AFTER REVIEW.
[2020-01-27] MEDS: PROPOFOL 1000 MG/100 ML 100 ML IV PRN (16:36)
[2020-01-28] VITALS (78 sets, daily range): BP systolic 103–181; BP diastolic 58–83
[2020-01-28 03:24] LABS: ABG BASE EXCESS 1.6 mmol/L (-2.0-3.0); ABG OXYGEN SATURATION 95.1 % (95.0-99.0); ABG PCO2 45 mmHg (35-48)
[2020-01-28 05:08] LABS: HEMATOCRIT 24.8 % (42-54); MEAN CORPUSCULAR HEMOGLOBIN 29.5 pg (27.0-33.0); MEAN CORPUSCULAR HGB CONC 32.3 g/dL (32.0-36.0); MEAN CORPUSCULAR VOLUME 91.5 fL (79-99); PLATELET COUNT (AUTO) 166 K/uL (130-400); RED BLOOD CELL COUNT(AUTO) 2.71 MIL/uL (4.50-6.20); RED CELL DISTRIBUTION WIDTH 13.7 % (11.0-15.5); WHITE BLOOD COUNT (AUTO) 13.8 K/uL (4.8-10.8)
[2020-01-28 05:37] LABS: ALBUMIN 1.6 g/dL (3.5-5.0); BILIRUBIN,TOTAL 0.2 mg/dL (0.2-1.0); CREATININE 0.8 mg/dL (0.5-1.5); CRP QUANTITATIVE 19.8 mg/L (0.00-9.0); POTASSIUM 4.4 mmol/L (3.5-5.1); TOTAL PROTEIN, SERUM 5.3 g/dL (6.0-8.3)
[2020-01-28] MEDS: PROPOFOL 1000 MG/100 ML 100 ML IV PRN ×4 (06:24→23:19)
[2020-01-28] MEDS: METOPROLOL TARTRATE 1 MG/ML 5ML VIAL IV SCH ×4 (06:25→23:19)
[2020-01-28] MEDS: CISATRACURIUM BESYLATE 100 MG in SODIUM CHLORIDE 0.9% 100 ML IV SCH ×3 (06:26→16:01)
[2020-01-28 06:59] LABS: BAND NEUTROPHILS % (MANUAL) 7 % (0-2); LYMPHOCYTES % (MANUAL) 7 % (22-44); METAMYELOCYTES % 2 % (0-0); MONOCYTES % (MANUAL) 2 % (2-9); SEGMENTED NEUTROPHILS % 82 % (40-70)
[2020-01-28 07:00] LABS: MAN.DIFF COMMENT-IMPRESSION MANUAL DIFFERENTIAL
[2020-01-28] MEDS: FAMOTIDINE 20MG TAB 20 MG TAB PO SCH ×2 (09:00→22:17)
[2020-01-28] MEDS: METHYLPREDNISOLONE SOD SUCC 40MG/ML 1ML IVP SCH ×2 (09:00→22:17)
[2020-01-28] MEDS: ASCORBIC ACID 500 MG TAB PO SCH (09:00)
[2020-01-28] MEDS: ZINC SULFATE 220 CAPSULE PO SCH (09:00)
[2020-01-28] MEDS: ENOXAPARIN SODIUM 40 MG/0.4 ML SYRINGE SQ SCH ×2 (09:00→22:20)
[2020-01-28] MEDS: FLUCONAZOLE 200 MG/NS 100 ML 100 ML IV SCH (09:00)
[2020-01-28] MEDS ORDERED: FENTANYL 2500MCG+NS 250ML 250 ML IV ONE ×2 (10:31→17:51)
[2020-01-28] MEDS ORDERED: SODIUM CHLORIDE 0.9% 500ML 500 ML IV ONE (11:18)
[2020-01-28] MEDS: WATER IV SCH (18:22)
[2020-01-28] MEDS: DEXTROSE 5% IV SCH (18:22)
[2020-01-28] MEDS: MIDAZOLAM HCL IV SCH (18:22)
[2020-01-28] MEDS: SODIUM POLYSTYRENE SULFONATE 15 GM/60 ML ML RC SCH (23:19)
[2020-01-29] VITALS (36 sets, daily range): BP systolic 129–245; BP diastolic 64–245
[2020-01-29] MEDS: DEXTROSE 5% IV SCH ×3 (02:28→22:56)
[2020-01-29] MEDS: PROPOFOL 1000 MG/100 ML 100 ML IV PRN ×4 (02:28→20:08)
[2020-01-29] MEDS: WATER IV SCH ×3 (02:28→22:56)
[2020-01-29] MEDS: MIDAZOLAM HCL IV SCH ×3 (02:28→22:56)
[2020-01-29] MEDS: FENTANYL CITRATE PF 0.05 MG/ML 2,500 MCG in DEXTROSE 5%-WATER 250 ML IVP SCH ×2 (02:30→20:09)
[2020-01-29] MEDS: CISATRACURIUM BESYLATE 100 MG in SODIUM CHLORIDE 0.9% 100 ML IV SCH ×4 (02:32→20:09)
[2020-01-29 04:46] LABS: ABG HCO3 25.7 mmol/L (21.0-28.0); ABG OXYGEN SATURATION 94.1 % (95.0-99.0); ABG PCO2 46 mmHg (35-48)
[2020-01-29 05:20] LABS: BASOPHILS % (AUTO) 0.1 % (0.0-5.0); EOSINOPHILS % (AUTO) 0.1 % (0.0-8.0); HEMATOCRIT 23.9 % (42-54); LYMPHOCYTES % (AUTO) 3.5 % (21.0-51.0); MEAN CORPUSCULAR HEMOGLOBIN 29.5 pg (27.0-33.0); MEAN CORPUSCULAR HGB CONC 31.8 g/dL (32.0-36.0); MEAN CORPUSCULAR VOLUME 92.6 fL (79-99); MONOCYTES % (AUTO) 2.5 % (3.0-13.0); NEUTROPHILS % (AUTO) 90.7 % (40.0-77.0); NUCLEATED RED BLOOD CELLS 0.2 % (0.0-0.19); PLATELET COUNT (AUTO) 169 K/uL (130-400); RED BLOOD CELL COUNT(AUTO) 2.58 MIL/uL (4.50-6.20); RED CELL DISTRIBUTION WIDTH 14.7 % (11.0-15.5); WHITE BLOOD COUNT (AUTO) 11.5 K/uL (4.8-10.8)
[2020-01-29 05:38] LABS: ALBUMIN 1.6 g/dL (3.5-5.0); BILIRUBIN,TOTAL 0.2 mg/dL (0.2-1.0); CREATININE 0.7 mg/dL (0.5-1.5); POTASSIUM 4.4 mmol/L (3.5-5.1); TOTAL PROTEIN, SERUM 5.3 g/dL (6.0-8.3)
[2020-01-29] MEDS: METOPROLOL TARTRATE 1 MG/ML 5ML VIAL IV SCH ×3 (07:00→19:00)
[2020-01-29 07:14] LABS: ABG BASE EXCESS 1.3 mmol/L (-2.0-3.0); ABG PCO2 42 mmHg (35-48)
[2020-01-29] MEDS: ZINC SULFATE 220 CAPSULE PO SCH (08:26)
[2020-01-29] MEDS: FLUCONAZOLE 200 MG/NS 100 ML 100 ML IV SCH (08:26)
[2020-01-29] MEDS: FAMOTIDINE 20MG TAB 20 MG TAB PO SCH (08:26)
[2020-01-29] MEDS: ASCORBIC ACID 500 MG TAB PO SCH (08:26)
[2020-01-29] MEDS: METHYLPREDNISOLONE SOD SUCC 40MG/ML 1ML IVP SCH (08:27)
[2020-01-29] MEDS: ENOXAPARIN SODIUM 40 MG/0.4 ML SYRINGE SQ SCH ×2 (08:36→20:08)
[2020-01-29] MEDS ORDERED: FENTANYL 2500MCG+NS 250ML 250 ML IV ONE ×2 (10:48→14:58)
[2020-01-30] VITALS (28 sets, daily range): BP systolic 70–168; BP diastolic 35–83
[2020-01-30] MEDS: SODIUM POLYSTYRENE SULFONATE 15 GM/60 ML ML RC SCH (00:15)
[2020-01-30] MEDS: METOPROLOL TARTRATE 1 MG/ML 5ML VIAL IV SCH ×4 (00:31→20:51)
[2020-01-30 03:37] LABS: ABG BASE EXCESS -0.9 mmol/L (-2.0-3.0); ABG HCO3 25.1 mmol/L (21.0-28.0); ABG OXYGEN SATURATION 96.6 % (95.0-99.0); ABG PCO2 47 mmHg (35-48)
[2020-01-30] MEDS: PROPOFOL 1000 MG/100 ML 100 ML IV PRN ×4 (04:43→20:49)
[2020-01-30] MEDS: CISATRACURIUM BESYLATE 100 MG in SODIUM CHLORIDE 0.9% 100 ML IV SCH (04:44)
[2020-01-30 06:22] LABS: ALBUMIN 1.5 g/dL (3.5-5.0); BILIRUBIN,TOTAL 0.2 mg/dL (0.2-1.0); CREATININE 0.7 mg/dL (0.5-1.5); CRP QUANTITATIVE 14.2 mg/L (0.00-9.0); POTASSIUM 3.5 mmol/L (3.5-5.1); TOTAL PROTEIN, SERUM 4.7 g/dL (6.0-8.3)
[2020-01-30] MEDS: FENTANYL CITRATE PF 0.05 MG/ML 2,500 MCG in DEXTROSE 5%-WATER 250 ML IVP SCH ×2 (06:40→20:50)
[2020-01-30 07:07] LABS: ABG BASE EXCESS -0.3 mmol/L (-2.0-3.0); ABG HCO3 25.5 mmol/L (21.0-28.0); ABG OXYGEN SATURATION 96.9 % (95.0-99.0); ABG PCO2 46 mmHg (35-48)
[2020-01-30] MEDS: DEXAMETHASONE SOD PHOSPHATE 4 MG/ML 1ML VIAL IVP SCH (08:11)
[2020-01-30] MEDS: FLUCONAZOLE 200 MG/NS 100 ML 100 ML IV SCH (08:11)
[2020-01-30 09:20] LABS: HEMATOCRIT 24.3 % (42-54); MEAN CORPUSCULAR HGB CONC 30.9 g/dL (32.0-36.0); MEAN CORPUSCULAR VOLUME 93.8 fL (79-99); PLATELET COUNT (AUTO) 165 K/uL (130-400); RED BLOOD CELL COUNT(AUTO) 2.59 MIL/uL (4.50-6.20); RED CELL DISTRIBUTION WIDTH 15.4 % (11.0-15.5); WHITE BLOOD COUNT (AUTO) 8.5 K/uL (4.8-10.8)
[2020-01-30] MEDS: DEXTROSE 5% IV SCH (10:00)
[2020-01-30] MEDS: WATER IV SCH (10:00)
[2020-01-30] MEDS: MIDAZOLAM HCL IV SCH (10:00)
[2020-01-30 10:07] LABS: EOSINOPHILS % (MANUAL) 1 % (1-6); LYMPHOCYTES % (MANUAL) 14 % (22-44); MAN.DIFF COMMENT-IMPRESSION MANUAL DIFFERENTIAL; MONOCYTES % (MANUAL) 3 % (2-9); SEGMENTED NEUTROPHILS % 82 % (40-70)
[2020-01-30 10:08] LABS: PLATELET MORPHOLOGY COMMENT ADEQUATE
[2020-01-30] MEDS ORDERED: DEXTROSE 50%-WATER 50 ML DISP.SYRIN IV ONE (11:53)
[2020-01-30] MEDS ORDERED: ENOXAPARIN SODIUM 40 MG/0.4 ML SYRINGE SQ SCH (12:16)
[2020-01-30] MEDS ORDERED: DOCUSATE NA 100MG/10ML UDCUP ONE ×2 (12:19→20:05)
[2020-01-30] MEDS: ENOXAPARIN SODIUM 40 MG/0.4 ML SYRINGE SQ SCH (12:22)
[2020-01-30] MEDS: DOCUSATE SODIUM 100 MG CAP PO SCH ×2 (12:23→20:51)
--- NOTE | 2020-01-30 13:20 | NUR ---
PRONE & UNSTABLE PRONED AT THIS TIME. PT SATURATING 89% MONITORED FOR 15 MIN. SATS AT 92%. UNSTABLE FOR CT ABDOMEN. TAMARA NGUYEN AWARE AND EXAMINED AT [facility]. Addendum: 01/30/20 at 1322 by Cynthia Palafox RN RN NOTE FOR 1115AM, PT ALSO HYPOGLYCEMIC AT THIS TIME. D50 GIVEN PER .
--- NOTE | 2020-01-30 16:32 | NUR ---
T/C PLACE TO [facility] T/C PLACED TO [facility] IN [place], SPOKE WITH LAILA, SAID STILL REVIEWING IT.
[2020-01-30 21:38] LABS: ABG BASE EXCESS -0.4 mmol/L (-2.0-3.0); ABG OXYGEN SATURATION 90.8 % (95.0-99.0); ABG PCO2 44 mmHg (35-48)
[2020-01-31] VITALS (51 sets, daily range): BP systolic 79–202; BP diastolic 53–128
[2020-01-31] MEDS: WATER IV SCH ×2 (00:14→20:42)
[2020-01-31] MEDS: DEXTROSE 5% IV SCH ×2 (00:14→20:42)
[2020-01-31] MEDS: MIDAZOLAM HCL IV SCH ×2 (00:14→20:42)
[2020-01-31] MEDS: SODIUM POLYSTYRENE SULFONATE 15 GM/60 ML ML RC SCH (00:15)
[2020-01-31] MEDS: METOPROLOL TARTRATE 1 MG/ML 5ML VIAL IV SCH ×4 (01:44→19:00)
[2020-01-31 05:11] LABS: BASOPHILS % (AUTO) 0.2 % (0.0-5.0); EOSINOPHILS % (AUTO) 0.1 % (0.0-8.0); HEMATOCRIT 30.6 % (42-54); MEAN CORPUSCULAR HEMOGLOBIN 29.4 pg (27.0-33.0); MEAN CORPUSCULAR HGB CONC 31.4 g/dL (32.0-36.0); MEAN CORPUSCULAR VOLUME 93.6 fL (79-99); MONOCYTES % (AUTO) 4.6 % (3.0-13.0); NEUTROPHILS % (AUTO) 88.5 % (40.0-77.0); NUCLEATED RED BLOOD CELLS 0.1 % (0.0-0.19); PLATELET COUNT (AUTO) 231 K/uL (130-400); RED BLOOD CELL COUNT(AUTO) 3.27 MIL/uL (4.50-6.20); RED CELL DISTRIBUTION WIDTH 16.1 % (11.0-15.5); WHITE BLOOD COUNT (AUTO) 13.4 K/uL (4.8-10.8)
[2020-01-31 05:27] LABS: ALBUMIN 1.9 g/dL (3.5-5.0); BILIRUBIN,TOTAL 0.2 mg/dL (0.2-1.0); CREATININE 0.6 mg/dL (0.5-1.5); CRP QUANTITATIVE 83.2 mg/L (0.00-9.0); POTASSIUM 3.9 mmol/L (3.5-5.1); TOTAL PROTEIN, SERUM 6.1 g/dL (6.0-8.3)
[2020-01-31] MEDS ORDERED: DOCUSATE NA 100MG/10ML UDCUP ONE ×3 (08:01→20:10)
[2020-01-31] MEDS: FLUCONAZOLE 200 MG/NS 100 ML 100 ML IV SCH (08:12)
[2020-01-31] MEDS: DEXAMETHASONE SOD PHOSPHATE 4 MG/ML 1ML VIAL IVP SCH (08:12)
[2020-01-31] MEDS: ENOXAPARIN SODIUM 40 MG/0.4 ML SYRINGE SQ SCH (08:13)
[2020-01-31] MEDS: DOCUSATE SODIUM 100 MG CAP PO SCH ×3 (08:13→20:43)
[2020-01-31 08:51] LABS: ABG BASE EXCESS -1.8 mmol/L (-2.0-3.0); ABG HCO3 24.4 mmol/L (21.0-28.0); ABG OXYGEN SATURATION 83.4 % (95.0-99.0); ABG PCO2 47 mmHg (35-48)
[2020-01-31] MEDS: CISATRACURIUM BESYLATE 100 MG in SODIUM CHLORIDE 0.9% 100 ML IV SCH ×2 (09:13→12:16)
[2020-01-31] MEDS: FENTANYL CITRATE PF 0.05 MG/ML 2,500 MCG in DEXTROSE 5%-WATER 250 ML IVP SCH ×2 (09:57→20:42)
[2020-01-31] MEDS ORDERED: DEXMEDETOMIDINE HCL 400 MCG in SODIUM CHLORIDE 0.9% 96 ML IV PRN (10:00)
--- NOTE | 2020-01-31 10:45 | NUR ---
ACUTE CHANGE NOTED ON MONITOR PT HYPOTENSIVE HR 99 79/53, SATURATING 82%. PT NILAY DOWN 53. HELD ALL SEDATION, LEVO STARTED. HR AND BP NORMALIZED. SATS REMAIN LOW ON CURRENT VENT SETTINGS. TAMARA NGUYEN MADE AWARE AND ASSESSED AT BSD. STAT CXR ordered. ORDERS TO REPARALYZE PATIENT AND SEDATE. INCREASE PEEP TO 16 AND MAINTAIN SATS ABOVE 88. PT REQUIRING MORE TIME TO RECOVER. SATURATING AT 85-87%. WILL CONTINUE TO MONITOR. FAMILY UPDATED BY TAMARA NGUYEN.
[2020-01-31] MEDS ORDERED: NOREPINEPHRINE BITARTRATE 16 MG in SODIUM CHLORIDE 0.9% 250 ML IV SCH (11:15)
[2020-01-31 12:29] LABS: ABG BASE EXCESS -1.6 mmol/L (-2.0-3.0); ABG HCO3 24.8 mmol/L (21.0-28.0); ABG OXYGEN SATURATION 90.9 % (95.0-99.0); ABG PCO2 50 mmHg (35-48)
--- NOTE | 2020-01-31 14:15 | NUR ---
DNR STATUS FAMILY CALLED FOR DNR STATUS ON PATIENT. TAMARA NGUYEN EXPLAINED PT PROGNOSIS EXTENSIVELY PER SISTER. REQUESTING ANOTHER PHONE CALL TO MOTHER FOR PE[facility] OF MIND. TAMARA NGUYEN MADE AWARE. Addendum: 01/31/20 at 1750 by Cynthia Palafox RN RN FAMILY CALLED TO UNIT REQUESTING DNR STATUS
[2020-01-31] MEDS ORDERED: POLYETHYLENE GLYCOL 3350 17 GM POWD.PACK ONE (14:38)
[2020-01-31] MEDS ORDERED: POLYETHYLENE GLYCOL 3350 17 GM POWD.PACK NG SCH (14:54)
[2020-01-31] MEDS ORDERED: COMPOUND IV REFRIGERATED 1 EACH IVSOLN MISC PRN (15:15)
[2020-01-31] MEDS: MEROPENEM 1 GM VIAL IVP SCH (15:15)
[2020-01-31] MEDS ORDERED: VANCOMYCIN PROTOCOL PER PHARMACY IV SCH (15:15)
[2020-01-31] MEDS: VANCOMYCIN 1.5 GM in SODIUM CHLORIDE 0.9% 250 ML IV SCH (17:16)
[2020-01-31] MEDS: PROPOFOL 1000 MG/100 ML 100 ML IV PRN (20:57)
[2020-02-01] VITALS (33 sets, daily range): BP systolic 119–167; BP diastolic 60–84
[2020-02-01] MEDS: MEROPENEM 1 GM VIAL IVP SCH ×4 (00:10→23:47)
[2020-02-01] MEDS: METOPROLOL TARTRATE 1 MG/ML 5ML VIAL IV SCH ×4 (00:13→19:00)
[2020-02-01] MEDS: SODIUM POLYSTYRENE SULFONATE 15 GM/60 ML ML RC SCH ×2 (00:13→23:46)
[2020-02-01 03:58] LABS: ABG BASE EXCESS 0.4 mmol/L (-2.0-3.0); ABG HCO3 27.2 mmol/L (21.0-28.0); ABG OXYGEN SATURATION 97.4 % (95.0-99.0); ABG PCO2 53 mmHg (35-48)
[2020-02-01] MEDS: MIDAZOLAM HCL IV SCH ×3 (05:34→20:47)
[2020-02-01] MEDS: WATER IV SCH ×3 (05:34→20:47)
[2020-02-01] MEDS: DEXTROSE 5% IV SCH ×3 (05:34→20:47)
[2020-02-01] MEDS: CISATRACURIUM BESYLATE 100 MG in SODIUM CHLORIDE 0.9% 100 ML IV SCH ×3 (05:34→20:48)
[2020-02-01] MEDS: PROPOFOL 1000 MG/100 ML 100 ML IV PRN ×5 (05:35→23:47)
[2020-02-01 05:55] LABS: CRP QUANTITATIVE 71.4 mg/L (0.00-9.0)
[2020-02-01 06:07] LABS: BASOPHILS % (AUTO) 0.2 % (0.0-5.0); EOSINOPHILS % (AUTO) 0.7 % (0.0-8.0); HEMATOCRIT 24.4 % (42-54); LYMPHOCYTES % (AUTO) 7.5 % (21.0-51.0); MEAN CORPUSCULAR HEMOGLOBIN 29.8 pg (27.0-33.0); MEAN CORPUSCULAR HGB CONC 31.1 g/dL (32.0-36.0); MEAN CORPUSCULAR VOLUME 95.7 fL (79-99); MONOCYTES % (AUTO) 8.2 % (3.0-13.0); NEUTROPHILS % (AUTO) 81.6 % (40.0-77.0); PLATELET COUNT (AUTO) 203 K/uL (130-400); RED BLOOD CELL COUNT(AUTO) 2.55 MIL/uL (4.50-6.20); RED CELL DISTRIBUTION WIDTH 16.2 % (11.0-15.5); WHITE BLOOD COUNT (AUTO) 10.3 K/uL (4.8-10.8)
[2020-02-01 06:09] LABS: ALBUMIN 1.6 g/dL (3.5-5.0); BILIRUBIN,TOTAL 0.2 mg/dL (0.2-1.0); CREATININE 0.8 mg/dL (0.5-1.5); POTASSIUM 4.1 mmol/L (3.5-5.1); TOTAL PROTEIN, SERUM 5.2 g/dL (6.0-8.3)
--- NOTE | 2020-02-01 07:28 | NUR ---
RECEIVING NOTE RECEIVED PT FROM NIGHT RN. PT REMAINS INTUBATED AND SEDATED. VENT SETTINGS 26, 500, PEEP 16 [id number]%. CURRENTLY UNSTABLE TO PRONE. WILL MAKE MD AWARE, CONTINUE TO MONITOR NEHEMIAS.
[2020-02-01] MEDS: VANCOMYCIN 1.5 GM in SODIUM CHLORIDE 0.9% 250 ML IV SCH ×2 (07:44→20:45)
[2020-02-01] MEDS: POLYETHYLENE GLYCOL 3350 17 GM POWD.PACK NG SCH (07:45)
[2020-02-01] MEDS: FLUCONAZOLE 200 MG/NS 100 ML 100 ML IV SCH (07:45)
[2020-02-01] MEDS: ENOXAPARIN SODIUM 40 MG/0.4 ML SYRINGE SQ SCH (07:46)
[2020-02-01] MEDS: DEXAMETHASONE SOD PHOSPHATE 4 MG/ML 1ML VIAL IVP SCH (07:46)
[2020-02-01] MEDS: DOCUSATE SODIUM 100 MG CAP PO SCH (08:56)
[2020-02-01] MEDS ORDERED: PANTOPRAZOLE 40 MG/VIAL IVP SCH (09:45)
[2020-02-01] MEDS: DOCUSATE NA 100MG/10ML UDCUP NG SCH ×3 (10:04→20:45)
[2020-02-01] MEDS: FUROSEMIDE 10 MG/ML 2ML VIAL IV SCH (10:04)
[2020-02-01 10:54] LABS: ABG BASE EXCESS -0.8 mmol/L (-2.0-3.0); ABG HCO3 25.7 mmol/L (21.0-28.0); ABG OXYGEN SATURATION 93.5 % (95.0-99.0); ABG PCO2 50 mmHg (35-48)
[2020-02-01 12:30] LABS: HEMATOCRIT 27.7 % (42-54)
[2020-02-01] MEDS: LACTULOSE 20 GM/30 ML UDCUP PO PRN (13:53)
[2020-02-01] MEDS: FENTANYL CITRATE PF 0.05 MG/ML 2,500 MCG in DEXTROSE 5%-WATER 250 ML IVP SCH ×2 (13:57→20:47)
--- NOTE | 2020-02-01 16:01 | NUR ---
FAMILY UPDATE Called to daughter Nanette, gave an update. All questions were answered
[2020-02-01] MEDS: PANTOPRAZOLE 40 MG/VIAL IVP SCH (20:45)
[2020-02-02] VITALS (36 sets, daily range): BP systolic 113–180; BP diastolic 61–97
[2020-02-02] MEDS: METOPROLOL TARTRATE 1 MG/ML 5ML VIAL IV SCH ×4 (01:00→16:35)
[2020-02-02 05:29] LABS: BASOPHILS % (AUTO) 0.1 % (0.0-5.0); EOSINOPHILS % (AUTO) 0.5 % (0.0-8.0); HEMATOCRIT 25.2 % (42-54); LYMPHOCYTES % (AUTO) 9.3 % (21.0-51.0); MEAN CORPUSCULAR HGB CONC 31.7 g/dL (32.0-36.0); MEAN CORPUSCULAR VOLUME 94.4 fL (79-99); MONOCYTES % (AUTO) 9.4 % (3.0-13.0); NEUTROPHILS % (AUTO) 78.5 % (40.0-77.0); PLATELET COUNT (AUTO) 199 K/uL (130-400); RED BLOOD CELL COUNT(AUTO) 2.67 MIL/uL (4.50-6.20); RED CELL DISTRIBUTION WIDTH 16.7 % (11.0-15.5); WHITE BLOOD COUNT (AUTO) 7.4 K/uL (4.8-10.8)
[2020-02-02 06:02] LABS: ALBUMIN 1.7 g/dL (3.5-5.0); BILIRUBIN,TOTAL 0.2 mg/dL (0.2-1.0); CREATININE 0.7 mg/dL (0.5-1.5); POTASSIUM 3.8 mmol/L (3.5-5.1); TOTAL PROTEIN, SERUM 5.3 g/dL (6.0-8.3)
[2020-02-02] MEDS: MEROPENEM 1 GM VIAL IVP SCH ×2 (07:41→14:43)
[2020-02-02] MEDS: FLUCONAZOLE 200 MG/NS 100 ML 100 ML IV SCH (08:07)
[2020-02-02] MEDS: PROPOFOL 1000 MG/100 ML 100 ML IV PRN ×3 (08:07→21:24)
[2020-02-02] MEDS: DEXAMETHASONE SOD PHOSPHATE 4 MG/ML 1ML VIAL IVP SCH (08:08)
[2020-02-02] MEDS: FUROSEMIDE 10 MG/ML 2ML VIAL IV SCH (08:08)
[2020-02-02] MEDS: ENOXAPARIN SODIUM 40 MG/0.4 ML SYRINGE SQ SCH (08:09)
[2020-02-02] MEDS: POLYETHYLENE GLYCOL 3350 17 GM POWD.PACK NG SCH (08:09)
[2020-02-02] MEDS: VANCOMYCIN 1.5 GM in SODIUM CHLORIDE 0.9% 250 ML IV SCH ×2 (08:32→21:26)
[2020-02-02] MEDS: DOCUSATE NA 100MG/10ML UDCUP NG SCH ×3 (08:32→21:23)
[2020-02-02] MEDS: PANTOPRAZOLE 40 MG/VIAL IVP SCH ×2 (08:34→21:24)
[2020-02-02] MEDS ORDERED: SODIUM CHLORIDE 0.9% 500ML 500 ML IV ONE (09:15)
[2020-02-02] MEDS: CISATRACURIUM BESYLATE 100 MG in SODIUM CHLORIDE 0.9% 100 ML IV SCH (09:23)
[2020-02-02] MEDS: LACTULOSE 20 GM/30 ML UDCUP PO PRN (12:55)
--- NOTE | 2020-02-02 12:56 | NUR ---
FAMILY Nurse spoke to family today and updated them about patients status.
[2020-02-02 14:31] LABS: ABG BASE EXCESS 3.7 mmol/L (-2.0-3.0); ABG HCO3 29.2 mmol/L (21.0-28.0); ABG OXYGEN SATURATION 96.3 % (95.0-99.0); ABG PCO2 47 mmHg (35-48)
--- NOTE | 2020-02-02 14:42 | NUR ---
late entry 01/30/20 7848 transfer update given to Norah tellez via phone case still being reviewed verbalized understanding. Rodger hancock HS
[2020-02-02] MEDS: MIDAZOLAM 100MG-0.9% NS 100ML 100 ML IV SCH (21:24)
[2020-02-03] VITALS (46 sets, daily range): BP systolic 96–176; BP diastolic 61–98
[2020-02-03] MEDS: SODIUM POLYSTYRENE SULFONATE 15 GM/60 ML ML RC SCH (00:15)
[2020-02-03] MEDS: MEROPENEM 1 GM VIAL IVP SCH ×3 (00:45→16:31)
[2020-02-03] MEDS: METOPROLOL TARTRATE 1 MG/ML 5ML VIAL IV SCH ×4 (00:46→18:21)
[2020-02-03 05:41] LABS: BASOPHILS % (AUTO) 0.1 % (0.0-5.0); EOSINOPHILS % (AUTO) 0.5 % (0.0-8.0); LYMPHOCYTES % (AUTO) 8.8 % (21.0-51.0); MEAN CORPUSCULAR HEMOGLOBIN 29.1 pg (27.0-33.0); MEAN CORPUSCULAR HGB CONC 31.7 g/dL (32.0-36.0); MONOCYTES % (AUTO) 11.1 % (3.0-13.0); PLATELET COUNT (AUTO) 270 K/uL (130-400); RED BLOOD CELL COUNT(AUTO) 3.26 MIL/uL (4.50-6.20); RED CELL DISTRIBUTION WIDTH 15.9 % (11.0-15.5); WHITE BLOOD COUNT (AUTO) 9.3 K/uL (4.8-10.8)
[2020-02-03 06:09] LABS: ALBUMIN 1.9 g/dL (3.5-5.0); BILIRUBIN,TOTAL 0.3 mg/dL (0.2-1.0); CREATININE 0.7 mg/dL (0.5-1.5); POTASSIUM 3.8 mmol/L (3.5-5.1); TOTAL PROTEIN, SERUM 6.2 g/dL (6.0-8.3)
[2020-02-03] MEDS: DOCUSATE NA 100MG/10ML UDCUP NG SCH ×3 (08:08→21:00)
[2020-02-03] MEDS: ENOXAPARIN SODIUM 40 MG/0.4 ML SYRINGE SQ SCH (08:08)
[2020-02-03] MEDS: DEXAMETHASONE SOD PHOSPHATE 4 MG/ML 1ML VIAL IVP SCH (08:08)
[2020-02-03] MEDS: POLYETHYLENE GLYCOL 3350 17 GM POWD.PACK NG SCH (08:08)
[2020-02-03] MEDS: PANTOPRAZOLE 40 MG/VIAL IVP SCH ×2 (08:08→21:00)
[2020-02-03] MEDS: FUROSEMIDE 10 MG/ML 2ML VIAL IV SCH (08:08)
[2020-02-03] MEDS: VANCOMYCIN 1.5 GM in SODIUM CHLORIDE 0.9% 250 ML IV SCH (09:00)
[2020-02-03] MEDS: LACTULOSE 20 GM/30 ML UDCUP PO PRN (09:58)
[2020-02-03] MEDS ORDERED: MAGNESIUM 2GM PREMIX 50ML 50 ML IV ONE (10:06)
[2020-02-03] MEDS ORDERED: MAGNESIUM 2GM PREMIX 50ML 50 ML IV PRN (10:15)
[2020-02-03 10:27] LABS: ABG BASE EXCESS 4.8 mmol/L (-2.0-3.0); ABG HCO3 29.9 mmol/L (21.0-28.0); ABG OXYGEN SATURATION 90.5 % (95.0-99.0); ABG PCO2 46 mmHg (35-48)
[2020-02-03] MEDS ORDERED: POTASSIUM CHLORIDE 20 MEQ/100 ML BAG IV SCH (10:45)
[2020-02-03] MEDS ORDERED: POTASSIUM CHLORIDE 20MEQ/100ML 100 ML IV SCH (10:45)
--- NOTE | 2020-02-03 13:21 | NUR ---
RD FOLLOW UP Tube feeding resumed x 1 day. Current Nepro at 20mls/hr as RN. Continued goal rate of 50mls/Hr, Flushes at 100mLs Q4hrs. LBM recorded as 01/11/20. Miralax, Colace, Lactulose, Lasix, Propofol in place. Recommend to continue to advance tube feeding to goal rate as tolerated. RD to continue to monitor. Please notify as additional nutrition concerns arise. Thank you. Addendum: 02/03/20 at [address] Amended: Links added.
[2020-02-04] VITALS (55 sets, daily range): BP systolic 84–202; BP diastolic 57–103
[2020-02-04] MEDS: SODIUM POLYSTYRENE SULFONATE 15 GM/60 ML ML RC SCH ×2 (00:15→20:47)
[2020-02-04] MEDS: MEROPENEM 1 GM VIAL IVP SCH ×4 (00:40→23:24)
[2020-02-04] MEDS: METOPROLOL TARTRATE 1 MG/ML 5ML VIAL IV SCH ×4 (00:41→18:04)
[2020-02-04 05:30] LABS: HEMATOCRIT 29.5 % (42-54); MEAN CORPUSCULAR HEMOGLOBIN 29.6 pg (27.0-33.0); MEAN CORPUSCULAR HGB CONC 31.9 g/dL (32.0-36.0); MEAN CORPUSCULAR VOLUME 92.8 fL (79-99); PLATELET COUNT (AUTO) 283 K/uL (130-400); RED BLOOD CELL COUNT(AUTO) 3.18 MIL/uL (4.50-6.20); RED CELL DISTRIBUTION WIDTH 16.3 % (11.0-15.5); WHITE BLOOD COUNT (AUTO) 8.8 K/uL (4.8-10.8)
[2020-02-04 05:42] LABS: BAND NEUTROPHILS % (MANUAL) 15 % (0-2); EOSINOPHILS % (MANUAL) 2 % (1-6); LYMPHOCYTES % (MANUAL) 12 % (22-44); MAN.DIFF COMMENT-IMPRESSION MANUAL DIFFERENTIAL; MONOCYTES % (MANUAL) 11 % (2-9); PLATELET MORPHOLOGY COMMENT ADEQUATE; REACTIVE LYMPHOCYTES 2 % (0-0); SEGMENTED NEUTROPHILS % 58 % (40-70)
[2020-02-04 05:52] LABS: ALBUMIN 1.9 g/dL (3.5-5.0); BILIRUBIN,TOTAL 0.3 mg/dL (0.2-1.0); CREATININE 0.7 mg/dL (0.5-1.5); POTASSIUM 3.7 mmol/L (3.5-5.1)
[2020-02-04] MEDS: DEXAMETHASONE SOD PHOSPHATE 4 MG/ML 1ML VIAL IVP SCH (10:58)
[2020-02-04] MEDS: DOCUSATE NA 100MG/10ML UDCUP NG SCH ×3 (10:58→20:47)
[2020-02-04] MEDS: POLYETHYLENE GLYCOL 3350 17 GM POWD.PACK NG SCH (10:58)
[2020-02-04] MEDS: PANTOPRAZOLE 40 MG/VIAL IVP SCH ×2 (10:58→20:47)
[2020-02-04] MEDS: ENOXAPARIN SODIUM 40 MG/0.4 ML SYRINGE SQ SCH (10:59)
[2020-02-04] MEDS ORDERED: POTASSIUM CHLORIDE 10MEQ/100ML 10 MEQ/100 ML ML IV SCH (12:15)
[2020-02-04 12:45] LABS: ABG BASE EXCESS 2.2 mmol/L (-2.0-3.0); ABG HCO3 28.6 mmol/L (21.0-28.0); ABG OXYGEN SATURATION 80.6 % (95.0-99.0); ABG PCO2 51 mmHg (35-48)
[2020-02-04] MEDS ORDERED: POTASSIUM CHLORIDE 20MEQ/100ML 100 ML IV ONE (13:11)
[2020-02-04] MEDS ORDERED: FUROSEMIDE 10 MG/ML 2ML VIAL ONE (13:11)
[2020-02-04] MEDS ORDERED: DEXTROSE 5%-WATER 500 ML IV ONE (13:16)
[2020-02-04] MEDS: POTASSIUM CHLORIDE 10MEQ/100ML 100 ML IV SCH ×3 (14:10→15:30)
[2020-02-04] MEDS ORDERED: FUROSEMIDE 10 MG/ML 2ML VIAL IV SCH (14:30)
[2020-02-04] MEDS ORDERED: NOREPINEPHRINE 4MG/NS 250ML 250 ML IV ONE (15:45)
--- NOTE | 2020-02-04 16:01 | NUR ---
TUBE EXCHANGE Cuff leak at shift change. Pt desatting into the 80's. TRAVEL REGISTERED NURSE ONCOLOGY changed ET tube to 8.0. Nurse changed OG tube. Pt was supine for 2 hours post reintubation and not tolerating on back. Turned patient back to prone at 12pm. Updated family of patients status.
--- NOTE | 2020-02-04 19:50 | NUR ---
Turned off paralytic. had 600 of tubefeeding residual after new OG was placed today. Residual looks like tubefeeding.
[2020-02-04] MEDS: VANCOMYCIN 1.5 GM in SODIUM CHLORIDE 0.9% 250 ML IV SCH (21:00)
--- NOTE | 2020-02-04 21:47 | NUR ---
Suctioned ET tube and creamy secretions resembling tube feeding is coming out. Tube feeding has been on hold since last night. Will have resp switch inline suction for a new one just in case. Lots of rhonci with inspiration noted.
[2020-02-05] VITALS (61 sets, daily range): BP systolic 99–184; BP diastolic 52–135
[2020-02-05] MEDS: METOPROLOL TARTRATE 1 MG/ML 5ML VIAL IV SCH ×5 (00:38→23:55)
[2020-02-05 05:23] LABS: HEMATOCRIT 28.4 % (42-54); MEAN CORPUSCULAR HEMOGLOBIN 29.5 pg (27.0-33.0); MEAN CORPUSCULAR HGB CONC 31.3 g/dL (32.0-36.0); PLATELET COUNT (AUTO) 239 K/uL (130-400); RED BLOOD CELL COUNT(AUTO) 3.02 MIL/uL (4.50-6.20); RED CELL DISTRIBUTION WIDTH 17.1 % (11.0-15.5); WHITE BLOOD COUNT (AUTO) 13.7 K/uL (4.8-10.8)
[2020-02-05 05:28] LABS: ALBUMIN 1.6 g/dL (3.5-5.0); BILIRUBIN,TOTAL 0.5 mg/dL (0.2-1.0); CREATININE 0.7 mg/dL (0.5-1.5); POTASSIUM 3.8 mmol/L (3.5-5.1); TOTAL PROTEIN, SERUM 5.6 g/dL (6.0-8.3)
[2020-02-05 06:19] LABS: BAND NEUTROPHILS % (MANUAL) 30 % (0-2); EOSINOPHILS % (MANUAL) 2 % (1-6); LYMPHOCYTES % (MANUAL) 4 % (22-44); MAN.DIFF COMMENT-IMPRESSION MANUAL DIFFERENTIAL; MONOCYTES % (MANUAL) 6 % (2-9); PLATELET MORPHOLOGY COMMENT ADEQUATE; SEGMENTED NEUTROPHILS % 58 % (40-70)
[2020-02-05] MEDS: MEROPENEM 1 GM VIAL IVP SCH ×3 (06:29→23:54)
[2020-02-05 08:36] LABS: ABG BASE EXCESS 1.2 mmol/L (-2.0-3.0); ABG HCO3 25.7 mmol/L (21.0-28.0); ABG PCO2 40 mmHg (35-48)
[2020-02-05] MEDS: PANTOPRAZOLE 40 MG/VIAL IVP SCH ×2 (08:45→19:43)
[2020-02-05] MEDS: ENOXAPARIN SODIUM 40 MG/0.4 ML SYRINGE SQ SCH (08:46)
[2020-02-05] MEDS: DOCUSATE NA 100MG/10ML UDCUP NG SCH ×3 (09:00→19:43)
[2020-02-05] MEDS: POLYETHYLENE GLYCOL 3350 17 GM POWD.PACK NG SCH (09:00)
[2020-02-05] MEDS: METOCLOPRAMIDE 10 MG/2 ML VIAL IVP SCH (10:35)
[2020-02-05] MEDS: VANCOMYCIN 1.25 GM in SODIUM CHLORIDE 0.9% 250 ML IV SCH ×2 (10:41→20:46)
[2020-02-05] MEDS ORDERED: FUROSEMIDE 10 MG/ML 2ML VIAL IV SCH (11:45)
[2020-02-05] MEDS ORDERED: CALCIUM GLUCONATE 1 GM/10 ML VIAL IV SCH (11:45)
[2020-02-05] MEDS ORDERED: POTASSIUM CHLORIDE 20 MEQ/100 ML BAG IV SCH (11:45)
[2020-02-05] MEDS ORDERED: POTASSIUM CHLORIDE 20MEQ/100ML 100 ML IV SCH (12:00)
[2020-02-05] MEDS ORDERED: CALCIUM GLUCONATE 1 GM in SODIUM CHLORIDE 0.9% 50 ML IV SCH (12:00)
[2020-02-05] MEDS ORDERED: CALCIUM GLUCONATE 1 GM/10 ML VIAL IV ONE (13:28)
[2020-02-05] MEDS: PROPOFOL 1000 MG/100 ML 100 ML IV PRN ×2 (19:43→23:54)
--- NOTE | 2020-02-05 22:13 | NUR ---
TUBE FEEDING SUCTIONED OUT OF PATIENTS NOSE. TURNED FEEDING OFF. NO BOWEL SOUNDS NOTED AND NO FLATUS.
[2020-02-05] MEDS: SODIUM POLYSTYRENE SULFONATE 15 GM/60 ML ML RC SCH (23:54)
[2020-02-06] VITALS (43 sets, daily range): BP systolic 75–144; BP diastolic 40–79
[2020-02-06] MEDS ORDERED: NOREPINEPHRINE 4MG/NS 250ML 250 ML IV ONE (01:30)
[2020-02-06 04:57] LABS: ABG BASE EXCESS 1.8 mmol/L (-2.0-3.0); ABG HCO3 26.9 mmol/L (21.0-28.0); ABG OXYGEN SATURATION 96.1 % (95.0-99.0); ABG PCO2 44 mmHg (35-48)
[2020-02-06 05:03] LABS: HEMATOCRIT 27.5 % (42-54); MEAN CORPUSCULAR HEMOGLOBIN 29.8 pg (27.0-33.0); MEAN CORPUSCULAR HGB CONC 31.6 g/dL (32.0-36.0); MEAN CORPUSCULAR VOLUME 94.2 fL (79-99); PLATELET COUNT (AUTO) 221 K/uL (130-400); RED BLOOD CELL COUNT(AUTO) 2.92 MIL/uL (4.50-6.20); RED CELL DISTRIBUTION WIDTH 16.9 % (11.0-15.5); WHITE BLOOD COUNT (AUTO) 10.3 K/uL (4.8-10.8)
[2020-02-06] MEDS: MEROPENEM 1 GM VIAL IVP SCH ×3 (05:20→23:15)
[2020-02-06] MEDS: METOPROLOL TARTRATE 1 MG/ML 5ML VIAL IV SCH ×3 (05:20→19:00)
[2020-02-06 05:56] LABS: ALBUMIN 1.4 g/dL (3.5-5.0); BILIRUBIN,TOTAL 0.5 mg/dL (0.2-1.0); CREATININE 0.6 mg/dL (0.5-1.5); POTASSIUM 3.3 mmol/L (3.5-5.1); TOTAL PROTEIN, SERUM 5.4 g/dL (6.0-8.3)
[2020-02-06] MEDS ORDERED: POTASSIUM CHLORIDE 20MEQ/100ML 100 ML IV ONE (06:19)
[2020-02-06 06:30] LABS: BAND NEUTROPHILS % (MANUAL) 21 % (0-2); BASOPHILS % (MANUAL) 1 % (0-2); EOSINOPHILS % (MANUAL) 1 % (1-6); LYMPHOCYTES % (MANUAL) 8 % (22-44); METAMYELOCYTES % 2 % (0-0); MONOCYTES % (MANUAL) 5 % (2-9); SEGMENTED NEUTROPHILS % 62 % (40-70)
[2020-02-06 06:31] LABS: MAN.DIFF COMMENT-IMPRESSION MANUAL DIFFERENTIAL; PLATELET MORPHOLOGY COMMENT ADEQUATE
[2020-02-06] MEDS: DOCUSATE NA 100MG/10ML UDCUP NG SCH ×3 (08:06→20:34)
[2020-02-06] MEDS: METOCLOPRAMIDE 10 MG/2 ML VIAL IVP SCH (08:06)
[2020-02-06] MEDS: PANTOPRAZOLE 40 MG/VIAL IVP SCH ×2 (08:06→20:34)
[2020-02-06] MEDS: POLYETHYLENE GLYCOL 3350 17 GM POWD.PACK NG SCH (08:07)
[2020-02-06] MEDS: ENOXAPARIN SODIUM 40 MG/0.4 ML SYRINGE SQ SCH (08:07)
[2020-02-06] MEDS: PROPOFOL 1000 MG/100 ML 100 ML IV PRN ×2 (08:08→19:25)
[2020-02-06] MEDS: VANCOMYCIN 1.25 GM in SODIUM CHLORIDE 0.9% 250 ML IV SCH (10:00)
[2020-02-06] MEDS: FENTANYL 2500MCG+NS 250ML 250 ML IV SCH (19:25)
[2020-02-06] MEDS: DEXMEDETOMIDINE HCL 400 MCG in SODIUM CHLORIDE 0.9% 96 ML IV PRN (19:25)
[2020-02-06] MEDS: VANCOMYCIN 1GM+NS 250ML 250 ML IV SCH (20:35)
[2020-02-07] VITALS (59 sets, daily range): BP systolic 88–247; BP diastolic 41–158
[2020-02-07] MEDS: SODIUM POLYSTYRENE SULFONATE 15 GM/60 ML ML RC SCH (00:15)
[2020-02-07] MEDS: METOPROLOL TARTRATE 1 MG/ML 5ML VIAL IV SCH ×4 (01:00→19:00)
[2020-02-07 04:28] LABS: BASOPHILS % (AUTO) 0.4 % (0.0-5.0); EOSINOPHILS % (AUTO) 1.6 % (0.0-8.0); HEMATOCRIT 29.6 % (42-54); LYMPHOCYTES % (AUTO) 5.6 % (21.0-51.0); MEAN CORPUSCULAR HEMOGLOBIN 30.2 pg (27.0-33.0); MEAN CORPUSCULAR HGB CONC 32.4 g/dL (32.0-36.0); MEAN CORPUSCULAR VOLUME 93.1 fL (79-99); NEUTROPHILS % (AUTO) 83.5 % (40.0-77.0); PLATELET COUNT (AUTO) 203 K/uL (130-400); RED BLOOD CELL COUNT(AUTO) 3.18 MIL/uL (4.50-6.20); RED CELL DISTRIBUTION WIDTH 16.3 % (11.0-15.5)
[2020-02-07 04:55] LABS: ALBUMIN 1.3 g/dL (3.5-5.0); BILIRUBIN,TOTAL 0.5 mg/dL (0.2-1.0); CREATININE 0.4 mg/dL (0.5-1.5); POTASSIUM 3.5 mmol/L (3.5-5.1); TOTAL PROTEIN, SERUM 5.5 g/dL (6.0-8.3)
[2020-02-07] MEDS: MEROPENEM 1 GM VIAL IVP SCH ×3 (05:08→22:18)
[2020-02-07 05:36] LABS: CRP QUANTITATIVE 264.2 mg/L (0.00-9.0)
[2020-02-07] MEDS: POLYETHYLENE GLYCOL 3350 17 GM POWD.PACK NG SCH (09:00)
[2020-02-07] MEDS: DOCUSATE NA 100MG/10ML UDCUP NG SCH ×3 (09:00→22:18)
[2020-02-07] MEDS: METOCLOPRAMIDE 10 MG/2 ML VIAL IVP SCH (09:38)
[2020-02-07] MEDS: PANTOPRAZOLE 40 MG/VIAL IVP SCH ×2 (09:38→22:17)
[2020-02-07] MEDS: ENOXAPARIN SODIUM 40 MG/0.4 ML SYRINGE SQ SCH (09:39)
[2020-02-07] MEDS: VANCOMYCIN 1GM+NS 250ML 250 ML IV SCH ×2 (09:39→21:00)
[2020-02-07] MEDS ORDERED: ALBUTEROL INHALER 90MCG/INH IH PRN (10:00)
[2020-02-07] MEDS ORDERED: ACETYLCYSTEINE 20% 200MG/ML 4ML VIAL IH SCH ×2 (10:00→21:00)
[2020-02-07] MEDS: PHARMACY COMMUNICATION MISC SCH ×7 (10:45→22:45)
[2020-02-07 12:02] LABS: ABG BASE EXCESS -5.7 mmol/L (-2.0-3.0); ABG HCO3 20.9 mmol/L (21.0-28.0); ABG OXYGEN SATURATION 94.5 % (95.0-99.0); ABG PCO2 45 mmHg (35-48)
[2020-02-07] MEDS: ACETYLCYSTEINE 20% 200MG/ML 4ML VIAL PO SCH ×2 (13:15→19:15)
[2020-02-07 17:28] LABS: ABG BASE EXCESS -5.2 mmol/L (-2.0-3.0); ABG HCO3 21.1 mmol/L (21.0-28.0); ABG OXYGEN SATURATION 74.7 % (95.0-99.0); ABG PCO2 44 mmHg (35-48)
[2020-02-07] MEDS ORDERED: CISATRACURIUM BESYLATE 100 MG in SODIUM CHLORIDE 0.9% 100 ML IV SCH (17:45)
[2020-02-07] MEDS: HYDROCORTISONE SOD SUCCINATE 100 MG/2 ML VIAL IV SCH (18:10)
[2020-02-07] MEDS ORDERED: DEXTROSE 50%-WATER 50 ML DISP.SYRIN IV ONE (18:11)
[2020-02-07] MEDS: PROPOFOL 1000 MG/100 ML 100 ML IV PRN (22:18)
[2020-02-07] MEDS: DEXMEDETOMIDINE HCL 400 MCG in SODIUM CHLORIDE 0.9% 96 ML IV PRN (22:18)
[2020-02-07] MEDS ORDERED: ALBUTEROL SULFATE 0.083% 2.5 MG/3 ML INH IH ONE (23:27)
[2020-02-08] VITALS (115 sets, daily range): BP systolic 59–232; BP diastolic 35–110
[2020-02-08] MEDS: SODIUM POLYSTYRENE SULFONATE 15 GM/60 ML ML RC SCH ×2 (00:15→23:47)
[2020-02-08] MEDS: PHARMACY COMMUNICATION MISC SCH ×8 (00:45→14:45)
[2020-02-08] MEDS: METOPROLOL TARTRATE 1 MG/ML 5ML VIAL IV SCH ×5 (01:00→23:47)
[2020-02-08] MEDS: ACETYLCYSTEINE 20% 200MG/ML 4ML VIAL PO SCH ×4 (01:15→19:15)
[2020-02-08] MEDS: FENTANYL 2500MCG+NS 250ML 250 ML IV SCH ×3 (02:32→15:19)
[2020-02-08] MEDS: MIDAZOLAM 100MG-0.9% NS 100ML 100 ML IV SCH ×2 (02:33→07:43)
[2020-02-08] MEDS: PROPOFOL 1000 MG/100 ML 100 ML IV PRN ×4 (02:33→13:47)
[2020-02-08] MEDS: MEROPENEM 1 GM VIAL IVP SCH (05:33)
[2020-02-08] MEDS: HYDROCORTISONE SOD SUCCINATE 100 MG/2 ML VIAL IV SCH ×5 (05:33→23:46)
[2020-02-08 07:22] LABS: CRP QUANTITATIVE 273.4 mg/L (0.00-9.0)
[2020-02-08] MEDS: DEXMEDETOMIDINE HCL 400 MCG in SODIUM CHLORIDE 0.9% 96 ML IV PRN (07:42)
[2020-02-08 08:17] LABS: BASOPHILS % (AUTO) 0.3 % (0.0-5.0); EOSINOPHILS % (AUTO) 0.2 % (0.0-8.0); HEMATOCRIT 27.1 % (42-54); LYMPHOCYTES % (AUTO) 2.9 % (21.0-51.0); MEAN CORPUSCULAR HGB CONC 31.4 g/dL (32.0-36.0); MEAN CORPUSCULAR VOLUME 95.8 fL (79-99); MONOCYTES % (AUTO) 5.1 % (3.0-13.0); NEUTROPHILS % (AUTO) 88.2 % (40.0-77.0); PLATELET COUNT (AUTO) 246 K/uL (130-400); RED BLOOD CELL COUNT(AUTO) 2.83 MIL/uL (4.50-6.20); RED CELL DISTRIBUTION WIDTH 16.5 % (11.0-15.5); WHITE BLOOD COUNT (AUTO) 26.3 K/uL (4.8-10.8)
[2020-02-08 08:26] LABS: CREATININE 0.8 mg/dL (0.5-1.5); MAGNESIUM 1.3 mg/dL (1.80-2.40); PHOSPHORUS 3.2 mg/dL (2.5-4.9); POTASSIUM 3.3 mmol/L (3.5-5.1)
[2020-02-08 08:53] LABS: ABG BASE EXCESS -5.7 mmol/L (-2.0-3.0); ABG HCO3 20.1 mmol/L (21.0-28.0); ABG OXYGEN SATURATION 90.5 % (95.0-99.0); ABG PCO2 40 mmHg (35-48)
[2020-02-08] MEDS: DOCUSATE NA 100MG/10ML UDCUP NG SCH ×3 (09:07→21:32)
[2020-02-08] MEDS: POLYETHYLENE GLYCOL 3350 17 GM POWD.PACK NG SCH (09:07)
[2020-02-08] MEDS: PANTOPRAZOLE 40 MG/VIAL IVP SCH ×2 (09:07→21:32)
[2020-02-08] MEDS: METOCLOPRAMIDE 10 MG/2 ML VIAL IVP SCH (09:07)
[2020-02-08] MEDS: ENOXAPARIN SODIUM 40 MG/0.4 ML SYRINGE SQ SCH (09:08)
[2020-02-08] MEDS: VANCOMYCIN 1GM+NS 250ML 250 ML IV SCH ×2 (11:25→21:00)
[2020-02-08] MEDS ORDERED: LIDOCAINE HCL-MPF 1% 2ML VIAL IV PRN (13:15)
--- NOTE | 2020-02-08 13:34 | NUR ---
RD FOLLOW UP - TUBE FEEDING UPDATE Recommend initiate Vital HP @15mls/hr X24hrs. Goal rate 45mls/hr Recommend flushes 100ml Q6hrs. Recommendations faxed to 2C [phone]), RN notified. NUTRITION NOTE: Tube feedings have been held due to proning, as per RN. Previous formula of LORENZO Ross resolved, therefore recommend to modify formula to Vital HP. RD to continue to monitor. Please notify as additional nutrition concerns arise. Thank you. Addendum: 02/08/20 at [address] Amended: Links added.
[2020-02-08] MEDS: POTASSIUM CHLORIDE 20MEQ/100ML 100 ML IV PRN (13:48)
[2020-02-08] MEDS: MEROPENEM 500 MG VIAL IVP SCH ×2 (14:00→21:33)
[2020-02-08] MEDS: DEXTROSE 10%-WATER 1,000 ML IV SCH ×2 (23:47)
[2020-02-09] VITALS (92 sets, daily range): BP systolic 86–175; BP diastolic 44–97
[2020-02-09] MEDS: PROPOFOL 1000 MG/100 ML 100 ML IV PRN ×2 (00:47→04:03)
[2020-02-09] MEDS: ACETYLCYSTEINE 20% 200MG/ML 4ML VIAL PO SCH ×4 (01:15→18:10)
[2020-02-09] MEDS ORDERED: ACETAMINOPHEN ELIXIR 650 MG/20.3 ML UDCUP ONE (02:09)
[2020-02-09] MEDS ORDERED: SODIUM CHLORIDE 0.9% 500ML 500 ML IV ONE (03:16)
[2020-02-09 04:01] LABS: ABG BASE EXCESS -2.8 mmol/L (-2.0-3.0); ABG HCO3 22.7 mmol/L (21.0-28.0); ABG OXYGEN SATURATION 97.3 % (95.0-99.0); ABG PCO2 42 mmHg (35-48)
[2020-02-09] MEDS: METOPROLOL TARTRATE 1 MG/ML 5ML VIAL IV SCH ×3 (04:18→18:09)
[2020-02-09 04:23] LABS: CREATININE 0.8 mg/dL (0.5-1.5); PHOSPHORUS 3.1 mg/dL (2.5-4.9); POTASSIUM 3.3 mmol/L (3.5-5.1)
[2020-02-09 04:58] LABS: CRP QUANTITATIVE 304.6 mg/L (0.00-9.0)
[2020-02-09] MEDS: HYDROCORTISONE SOD SUCCINATE 100 MG/2 ML VIAL IV SCH ×2 (06:32→12:00)
[2020-02-09] MEDS: MEROPENEM 500 MG VIAL IVP SCH ×3 (06:32→22:00)
[2020-02-09] MEDS: PANTOPRAZOLE 40 MG/VIAL IVP SCH ×2 (08:17→21:00)
[2020-02-09] MEDS: FLUCONAZOLE 200 MG/NS 100 ML 100 ML IV SCH (08:17)
[2020-02-09] MEDS: METOCLOPRAMIDE 10 MG/2 ML VIAL IVP SCH (08:17)
[2020-02-09] MEDS: POLYETHYLENE GLYCOL 3350 17 GM POWD.PACK NG SCH (08:18)
[2020-02-09] MEDS: ENOXAPARIN SODIUM 40 MG/0.4 ML SYRINGE SQ SCH (08:18)
[2020-02-09] MEDS: DOCUSATE NA 100MG/10ML UDCUP NG SCH ×3 (08:23→21:00)
[2020-02-09 10:24] LABS: HEMATOCRIT 25.5 % (42-54); MEAN CORPUSCULAR HEMOGLOBIN 29.8 pg (27.0-33.0); MEAN CORPUSCULAR HGB CONC 31.8 g/dL (32.0-36.0); MEAN CORPUSCULAR VOLUME 93.8 fL (79-99); PLATELET COUNT (AUTO) 200 K/uL (130-400); RED BLOOD CELL COUNT(AUTO) 2.72 MIL/uL (4.50-6.20); RED CELL DISTRIBUTION WIDTH 17.4 % (11.0-15.5); WHITE BLOOD COUNT (AUTO) 17.9 K/uL (4.8-10.8)
[2020-02-09] MEDS: VANCOMYCIN 1GM+NS 250ML 250 ML IV SCH ×2 (10:47→21:00)
[2020-02-09 11:12] LABS: BAND NEUTROPHILS % (MANUAL) 2 % (0-2); EOSINOPHILS % (MANUAL) 4 % (1-6); LYMPHOCYTES % (MANUAL) 5 % (22-44); PLATELET MORPHOLOGY COMMENT ADEQUATE; SEGMENTED NEUTROPHILS % 89 % (40-70)
--- NOTE | 2020-02-09 11:40 | NUR ---
Dr Jose notified via phone about new consult for Trache placement.
--- NOTE | 2020-02-09 11:55 | NUR ---
Called office of Dr Conrad to notify about new consult for PEG placement, spoke to Patricia
[2020-02-09 12:40] LABS: INR 0.91 (0.85-1.15); PROTHROMBIN TIME 9.9 SEC (9.6-11.6)
[2020-02-09] MEDS ORDERED: LACTATED RINGERS 500 ML 500 ML IV SCH (13:00)
--- NOTE | 2020-02-09 14:15 | NUR ---
Skin breakdown Skin breakdown on both cheeks from ET knapp. dressing replaced with mepilex and and new tape. Pt too unstable to remove dressing for picture as pt has been reintubed with larger tube on the . Pt has been intubated since the 01/10. Plan is for trach and peg once surgery can confirm date.
[2020-02-09] MEDS: MIDODRINE HCL 5 MG TABLET PO SCH (21:00)
[2020-02-09] MEDS: FENTANYL 2500MCG+NS 250ML 250 ML IV SCH (21:59)
[2020-02-10] VITALS (77 sets, daily range): BP systolic 52–148; BP diastolic 34–75
[2020-02-10] MEDS: DEXTROSE 10%-WATER 1,000 ML IV SCH
[2020-02-10] MEDS: SODIUM POLYSTYRENE SULFONATE 15 GM/60 ML ML RC SCH (00:15)
[2020-02-10] MEDS: METOPROLOL TARTRATE 1 MG/ML 5ML VIAL IV SCH ×4 (01:00→17:46)
[2020-02-10] MEDS: ACETYLCYSTEINE 20% 200MG/ML 4ML VIAL PO SCH ×4 (01:40→19:15)
[2020-02-10 04:18] LABS: HEMATOCRIT 25.4 % (42-54); MEAN CORPUSCULAR HEMOGLOBIN 29.7 pg (27.0-33.0); MEAN CORPUSCULAR HGB CONC 32.3 g/dL (32.0-36.0); NUCLEATED RED BLOOD CELLS 0.2 % (0.0-0.19); RED BLOOD CELL COUNT(AUTO) 2.76 MIL/uL (4.50-6.20); RED CELL DISTRIBUTION WIDTH 17.6 % (11.0-15.5); WHITE BLOOD COUNT (AUTO) 20.3 K/uL (4.8-10.8)
[2020-02-10 04:45] LABS: ALBUMIN 1.5 g/dL (3.5-5.0); BILIRUBIN,TOTAL 0.7 mg/dL (0.2-1.0); CREATININE 0.7 mg/dL (0.5-1.5); MAGNESIUM 2.1 mg/dL (1.80-2.40); PHOSPHORUS 1.9 mg/dL (2.5-4.9); TOTAL PROTEIN, SERUM 5.8 g/dL (6.0-8.3)
[2020-02-10 04:50] LABS: POTASSIUM 2.6 mmol/L (3.5-5.1)
[2020-02-10] MEDS: MEROPENEM 500 MG VIAL IVP SCH ×3 (06:32→22:00)
[2020-02-10] MEDS: PROPOFOL 1000 MG/100 ML 100 ML IV PRN (06:33)
[2020-02-10] MEDS: POTASSIUM CHLORIDE 20MEQ/100ML 100 ML IV PRN (06:33)
[2020-02-10] MEDS: POLYETHYLENE GLYCOL 3350 17 GM POWD.PACK NG SCH (08:40)
[2020-02-10] MEDS: FLUCONAZOLE 200 MG/NS 100 ML 100 ML IV SCH (08:40)
[2020-02-10] MEDS: PANTOPRAZOLE 40 MG/VIAL IVP SCH ×2 (08:41→21:00)
[2020-02-10] MEDS: ENOXAPARIN SODIUM 40 MG/0.4 ML SYRINGE SQ SCH (08:41)
[2020-02-10] MEDS: MIDODRINE HCL 5 MG TABLET PO SCH ×2 (08:41→21:00)
[2020-02-10] MEDS: METOCLOPRAMIDE 10 MG/2 ML VIAL IVP SCH (08:41)
[2020-02-10] MEDS: DOCUSATE NA 100MG/10ML UDCUP NG SCH ×3 (08:44→21:00)
[2020-02-10] MEDS: VANCOMYCIN 1GM+NS 250ML 250 ML IV SCH ×2 (09:00→21:00)
[2020-02-10 11:53] LABS: ALBUMIN 1.5 g/dL (3.5-5.0); BILIRUBIN,TOTAL 0.9 mg/dL (0.2-1.0); CREATININE 0.7 mg/dL (0.5-1.5); TOTAL PROTEIN, SERUM 5.8 g/dL (6.0-8.3)
[2020-02-10] MEDS ORDERED: NOREPINEPHRINE 4MG/NS 250ML 250 ML IV ONE ×2 (12:10→21:56)
[2020-02-10] MEDS ORDERED: DEXTROSE 50%-WATER 50 ML DISP.SYRIN IV ONE (12:24)
[2020-02-10] MEDS ORDERED: CALCIUM GLUCONATE 1 GM in SODIUM CHLORIDE 0.9% 100 ML IV SCH (13:45)
[2020-02-10] MEDS ORDERED: FUROSEMIDE 10 MG/ML 2ML VIAL IV SCH (14:15)
[2020-02-10] MEDS ORDERED: POTASSIUM PHOS 15 mMOL+NS250ML 250 ML IV PRN ×2 (18:45→22:45)
[2020-02-10 19:40] LABS: ABG BASE EXCESS -8.4 mmol/L (-2.0-3.0); ABG HCO3 17.9 mmol/L (21.0-28.0); ABG OXYGEN SATURATION 83.3 % (95.0-99.0); ABG PCO2 40 mmHg (35-48)
[2020-02-11] VITALS (75 sets, daily range): BP systolic 43–190; BP diastolic 37–106
[2020-02-11] MEDS: DEXTROSE 10%-WATER 1,000 ML IV SCH
[2020-02-11] MEDS: SODIUM POLYSTYRENE SULFONATE 15 GM/60 ML ML RC SCH (00:15)
[2020-02-11] MEDS: METOPROLOL TARTRATE 1 MG/ML 5ML VIAL IV SCH ×4 (00:48→19:00)
[2020-02-11] MEDS: ACETYLCYSTEINE 20% 200MG/ML 4ML VIAL PO SCH ×4 (00:48→20:50)
[2020-02-11] MEDS: PROPOFOL 1000 MG/100 ML 100 ML IV PRN (00:50)
[2020-02-11] MEDS ORDERED: SODIUM CHLORIDE 0.9% 500ML 500 ML IV ONE (03:03)
[2020-02-11] MEDS ORDERED: NOREPINEPHRINE BITARTRATE 1 MG/1 ML ML IV ONE (03:03)
[2020-02-11 03:19] LABS: ABG BASE EXCESS -10.9 mmol/L (-2.0-3.0); ABG OXYGEN SATURATION 69.4 % (95.0-99.0); ABG PCO2 45 mmHg (35-48)
[2020-02-11 04:29] LABS: BASOPHILS % (AUTO) 0.1 % (0.0-5.0); EOSINOPHILS % (AUTO) 0.9 % (0.0-8.0); HEMATOCRIT 27.9 % (42-54); LYMPHOCYTES % (AUTO) 4.6 % (21.0-51.0); MEAN CORPUSCULAR HEMOGLOBIN 29.9 pg (27.0-33.0); MEAN CORPUSCULAR HGB CONC 31.5 g/dL (32.0-36.0); MEAN CORPUSCULAR VOLUME 94.9 fL (79-99); MONOCYTES % (AUTO) 2.9 % (3.0-13.0); NUCLEATED RED BLOOD CELLS 1.6 % (0.0-0.19); PLATELET COUNT (AUTO) 158 K/uL (130-400); RED BLOOD CELL COUNT(AUTO) 2.94 MIL/uL (4.50-6.20); RED CELL DISTRIBUTION WIDTH 18.5 % (11.0-15.5)
[2020-02-11 04:42] LABS: BAND NEUTROPHILS % (MANUAL) 24 % (0-2); BASOPHILS % (MANUAL) 1 % (0-2); LYMPHOCYTES % (MANUAL) 7 % (22-44); METAMYELOCYTES % 4 % (0-0); MONOCYTES % (MANUAL) 2 % (2-9); SEGMENTED NEUTROPHILS % 62 % (40-70)
[2020-02-11 04:43] LABS: MAN.DIFF COMMENT-IMPRESSION MANUAL DIFFERENTIAL
[2020-02-11 04:52] LABS: ALBUMIN 1.4 g/dL (3.5-5.0); BILIRUBIN,TOTAL 0.9 mg/dL (0.2-1.0); CREATININE 1.3 mg/dL (0.5-1.5); PHOSPHORUS 4.1 mg/dL (2.5-4.9); POTASSIUM 4.5 mmol/L (3.5-5.1); TOTAL PROTEIN, SERUM 5.6 g/dL (6.0-8.3)
[2020-02-11] MEDS: MEROPENEM 500 MG VIAL IVP SCH ×2 (06:17→20:51)
[2020-02-11] MEDS ORDERED: PROPOFOL 1000 MG/100 ML 200 ML IV ONE ×3 (08:04→23:08)
[2020-02-11] MEDS: DOCUSATE NA 100MG/10ML UDCUP NG SCH ×3 (09:00→20:50)
[2020-02-11] MEDS: VANCOMYCIN 1GM+NS 250ML 250 ML IV SCH ×2 (09:00→21:00)
[2020-02-11] MEDS: METOCLOPRAMIDE 10 MG/2 ML VIAL IVP SCH (09:00)
[2020-02-11] MEDS: ENOXAPARIN SODIUM 40 MG/0.4 ML SYRINGE SQ SCH (09:00)
[2020-02-11] MEDS: PANTOPRAZOLE 40 MG/VIAL IVP SCH ×2 (09:00→20:50)
[2020-02-11] MEDS: POLYETHYLENE GLYCOL 3350 17 GM POWD.PACK NG SCH (09:00)
[2020-02-11] MEDS: FLUCONAZOLE 200 MG/NS 100 ML 100 ML IV SCH (09:34)
[2020-02-11] MEDS: MIDODRINE HCL 5 MG TABLET PO SCH ×3 (09:35→20:51)
[2020-02-11] MEDS ORDERED: DEXTROSE 50%-WATER 50 ML DISP.SYRIN IV ONE ×3 (09:55→23:58)
[2020-02-11 15:11] LABS: ABG BASE EXCESS -12.4 mmol/L (-2.0-3.0); ABG HCO3 16.2 mmol/L (21.0-28.0); ABG OXYGEN SATURATION 74.9 % (95.0-99.0); ABG PCO2 47 mmHg (35-48)
--- NOTE | 2020-02-11 18:03 | NUR ---
Update Pt WBC elevated this AM. Increased levophed dose/hr and pt CXR show increased infiltrates. Plan was for Trach and Peg this AM, however, pt became more unstable and while increasing FI02 and PEEP and peg was canceled until Thursday. Plan is for Trach and Peg on Thursday if pt improves. Pt was proned at 3pm per Dr. Cisse. Will supine patient post 24hours.
--- NOTE | 2020-02-11 18:19 | NUR ---
Scrotal swelling Increased scrotal edema. Pt has become anuric. Nova was replaced on 02/08 and flushes. Currently pt is proned. Will continue to monitor
[2020-02-11] MEDS ORDERED: PROPOFOL 1000 MG/100 ML 100 ML IV ONE (21:13)
--- NOTE | 2020-02-11 22:13 | NUR ---
VANCOMYCIN 2100 DOSE HELD. TROUGH CAME BACK AT 27.8. PHARMACY ALREADY LEFT FOR THE NIGHT, RESULTS FAXED TO PHARMACY. WILL FOLLOW UP WITH PHARMACY IN THE AM.
[2020-02-11] MEDS: FENTANYL 2500MCG+NS 250ML 250 ML IV SCH (22:26)
[2020-02-11] MEDS: DEXMEDETOMIDINE HCL 400 MCG in SODIUM CHLORIDE 0.9% 96 ML IV PRN (22:26)
[2020-02-11] MEDS: NOREPINEPHRINE BITARTRATE 32 MG in SODIUM CHLORIDE 0.9% 250 ML IV SCH (22:26)
[2020-02-11] MEDS ORDERED: PROPOFOL 1000 MG/100 ML IV PRN (23:15)
[2020-02-12] VITALS (85 sets, daily range): BP systolic 69–126; BP diastolic 33–74
[2020-02-12] MEDS: DEXTROSE 10%-WATER 1,000 ML IV SCH (00:02)
[2020-02-12] MEDS: SODIUM POLYSTYRENE SULFONATE 15 GM/60 ML ML RC SCH (00:15)
[2020-02-12] MEDS: METOPROLOL TARTRATE 1 MG/ML 5ML VIAL IV SCH ×4 (00:22→19:00)
[2020-02-12] MEDS: ACETYLCYSTEINE 20% 200MG/ML 4ML VIAL PO SCH ×4 (01:15→19:36)
[2020-02-12] MEDS ORDERED: ACETAMINOPHEN 650 MG SUPPOSITORY RC ONE (04:25)
[2020-02-12 05:12] LABS: BASOPHILS % (AUTO) 0.2 % (0.0-5.0); EOSINOPHILS % (AUTO) 0.3 % (0.0-8.0); HEMATOCRIT 26.4 % (42-54); LYMPHOCYTES % (AUTO) 8.2 % (21.0-51.0); MEAN CORPUSCULAR HEMOGLOBIN 28.5 pg (27.0-33.0); MEAN CORPUSCULAR HGB CONC 30.7 g/dL (32.0-36.0); MONOCYTES % (AUTO) 4.2 % (3.0-13.0); NEUTROPHILS % (AUTO) 84.6 % (40.0-77.0); NUCLEATED RED BLOOD CELLS 7.5 % (0.0-0.19); PLATELET COUNT (AUTO) 102 K/uL (130-400); RED BLOOD CELL COUNT(AUTO) 2.84 MIL/uL (4.50-6.20); RED CELL DISTRIBUTION WIDTH 18.3 % (11.0-15.5); WHITE BLOOD COUNT (AUTO) 25.1 K/uL (4.8-10.8)
[2020-02-12 05:26] LABS: ALBUMIN 1.3 g/dL (3.5-5.0); BILIRUBIN,TOTAL 1.1 mg/dL (0.2-1.0); CREATININE 2.2 mg/dL (0.5-1.5); PHOSPHORUS 5.1 mg/dL (2.5-4.9); POTASSIUM 4.8 mmol/L (3.5-5.1); TOTAL PROTEIN, SERUM 5.1 g/dL (6.0-8.3)
[2020-02-12] MEDS ORDERED: DEXTROSE 50%-WATER 50 ML DISP.SYRIN IV ONE ×3 (05:57→12:58)
[2020-02-12] MEDS: MEROPENEM 500 MG VIAL IVP SCH ×3 (06:24→21:22)
[2020-02-12 07:23] LABS: ABG BASE EXCESS -16.1 mmol/L (-2.0-3.0); ABG HCO3 13.8 mmol/L (21.0-28.0); ABG OXYGEN SATURATION 86.2 % (95.0-99.0); ABG PCO2 52 mmHg (35-48)
[2020-02-12] MEDS ORDERED: VASOPRESSIN 40 UNITS in SODIUM CHLORIDE 0.9% 40 ML IV SCH (07:45)
[2020-02-12] MEDS: VANCOMYCIN 1GM+NS 250ML 250 ML IV SCH (07:56)
[2020-02-12] MEDS: MIDODRINE HCL 5 MG TABLET PO SCH ×3 (09:00→21:22)
[2020-02-12] MEDS: PANTOPRAZOLE 40 MG/VIAL IVP SCH ×2 (09:00→21:22)
[2020-02-12] MEDS: DOCUSATE NA 100MG/10ML UDCUP NG SCH ×3 (09:00→21:22)
[2020-02-12] MEDS: METOCLOPRAMIDE 10 MG/2 ML VIAL IVP SCH (09:00)
[2020-02-12] MEDS: ENOXAPARIN SODIUM 40 MG/0.4 ML SYRINGE SQ SCH (09:00)
[2020-02-12] MEDS: POLYETHYLENE GLYCOL 3350 17 GM POWD.PACK NG SCH (09:00)
[2020-02-12] MEDS: FLUCONAZOLE 200 MG/NS 100 ML 100 ML IV SCH (09:00)
[2020-02-12] MEDS ORDERED: TOBRAMYCIN SULFATE 100 MG in SODIUM CHLORIDE 0.9% 100 ML IV SCH (11:45)
[2020-02-12] MEDS ORDERED: COMPOUND IV MISC 1 EACH IVSOLN MISC PRN (12:30)
[2020-02-12] MEDS ORDERED: SODIUM CHLORIDE 0.9% IV SCH (12:30)
[2020-02-12] MEDS ORDERED: TOBRAMYCIN SULFATE IV SCH (12:30)
[2020-02-12] MEDS ORDERED: METHYLPREDNISOLONE SOD SUCC 125MG/2ML VIAL ONE (12:44)
[2020-02-12] MEDS ORDERED: HYDROCORTISONE SOD SUCCINATE 100 MG/2 ML VIAL ONE (12:49)
[2020-02-12 13:00] LABS: ABG BASE EXCESS -14.6 mmol/L (-2.0-3.0); ABG OXYGEN SATURATION 80.4 % (95.0-99.0); ABG PCO2 49 mmHg (35-48)
[2020-02-12] MEDS: HYDROCORTISONE SOD SUCCINATE 100 MG/2 ML VIAL IV SCH ×2 (14:00→21:22)
[2020-02-12] MEDS: DEXMEDETOMIDINE HCL 400 MCG in SODIUM CHLORIDE 0.9% 96 ML IV PRN (21:23)
[2020-02-13] VITALS (93 sets, daily range): BP systolic 91–158; BP diastolic 46–110
[2020-02-13] MEDS: SODIUM POLYSTYRENE SULFONATE 15 GM/60 ML ML RC SCH (00:15)
[2020-02-13] MEDS: METOPROLOL TARTRATE 1 MG/ML 5ML VIAL IV SCH ×4 (00:43→19:00)
[2020-02-13] MEDS: ACETYLCYSTEINE 20% 200MG/ML 4ML VIAL PO SCH ×4 (00:43→19:15)
[2020-02-13] MEDS: DEXTROSE 10%-WATER 1,000 ML IV SCH (00:47)
[2020-02-13 03:39] LABS: ABG BASE EXCESS -15.7 mmol/L (-2.0-3.0); ABG HCO3 14.3 mmol/L (21.0-28.0); ABG OXYGEN SATURATION 77.7 % (95.0-99.0); ABG PCO2 49 mmHg (35-48)
[2020-02-13 04:31] LABS: EOSINOPHILS % (AUTO) 0.1 % (0.0-8.0); HEMATOCRIT 23.9 % (42-54); LYMPHOCYTES % (AUTO) 4.7 % (21.0-51.0); MEAN CORPUSCULAR HEMOGLOBIN 28.7 pg (27.0-33.0); MEAN CORPUSCULAR HGB CONC 31.8 g/dL (32.0-36.0); MEAN CORPUSCULAR VOLUME 90.2 fL (79-99); MONOCYTES % (AUTO) 4.6 % (3.0-13.0); NEUTROPHILS % (AUTO) 86.6 % (40.0-77.0); NUCLEATED RED BLOOD CELLS 3.8 % (0.0-0.19); PLATELET COUNT (AUTO) 67 K/uL (130-400); RED BLOOD CELL COUNT(AUTO) 2.65 MIL/uL (4.50-6.20); RED CELL DISTRIBUTION WIDTH 18.6 % (11.0-15.5)
[2020-02-13 04:44] LABS: WHITE BLOOD COUNT (AUTO) 36.1 K/uL (4.8-10.8)
[2020-02-13 05:13] LABS: ALBUMIN 1.1 g/dL (3.5-5.0); BILIRUBIN,TOTAL 1.2 mg/dL (0.2-1.0); CREATININE 2.9 mg/dL (0.5-1.5); PHOSPHORUS 6.1 mg/dL (2.5-4.9); POTASSIUM 5.6 mmol/L (3.5-5.1); TOTAL PROTEIN, SERUM 5.3 g/dL (6.0-8.3)
[2020-02-13] MEDS: MEROPENEM 500 MG VIAL IVP SCH ×3 (06:37→20:28)
[2020-02-13] MEDS: HYDROCORTISONE SOD SUCCINATE 100 MG/2 ML VIAL IV SCH ×3 (06:37→20:28)
[2020-02-13] MEDS: METOCLOPRAMIDE 10 MG/2 ML VIAL IVP SCH (09:00)
[2020-02-13] MEDS: FLUCONAZOLE 200 MG/NS 100 ML 100 ML IV SCH (09:10)
[2020-02-13] MEDS: PANTOPRAZOLE 40 MG/VIAL IVP SCH ×2 (09:11→19:42)
[2020-02-13] MEDS: DOCUSATE NA 100MG/10ML UDCUP NG SCH ×3 (09:11→19:42)
[2020-02-13] MEDS: POLYETHYLENE GLYCOL 3350 17 GM POWD.PACK NG SCH (09:12)
[2020-02-13] MEDS: MIDODRINE HCL 5 MG TABLET PO SCH ×3 (09:12→19:46)
[2020-02-13] MEDS: ENOXAPARIN SODIUM 40 MG/0.4 ML SYRINGE SQ SCH (09:21)
[2020-02-13] MEDS: VANCOMYCIN 1.5 GM in SODIUM CHLORIDE 0.9% 250 ML IV SCH (11:00)
[2020-02-13] MEDS: TOBRAMYCIN SULFATE 100 MG in SODIUM CHLORIDE 0.9% 100 ML IV SCH (12:09)
[2020-02-14] VITALS (101 sets, daily range): BP systolic 83–181; BP diastolic 48–174
[2020-02-14] MEDS: SODIUM POLYSTYRENE SULFONATE 15 GM/60 ML ML RC SCH (00:15)
[2020-02-14] MEDS: METOPROLOL TARTRATE 1 MG/ML 5ML VIAL IV SCH ×4 (01:00→19:00)
[2020-02-14] MEDS: ACETYLCYSTEINE 20% 200MG/ML 4ML VIAL PO SCH ×4 (01:15→19:15)
[2020-02-14] MEDS: DEXTROSE 10%-WATER 1,000 ML IV SCH (01:27)
[2020-02-14 04:25] LABS: ABG BASE EXCESS -17.8 mmol/L (-2.0-3.0); ABG HCO3 12.5 mmol/L (21.0-28.0); ABG OXYGEN SATURATION 67.5 % (95.0-99.0); ABG PCO2 47 mmHg (35-48)
[2020-02-14 05:23] LABS: BASOPHILS % (AUTO) 0.2 % (0.0-5.0); EOSINOPHILS % (AUTO) 0.1 % (0.0-8.0); LYMPHOCYTES % (AUTO) 5.3 % (21.0-51.0); MEAN CORPUSCULAR HEMOGLOBIN 29.1 pg (27.0-33.0); MEAN CORPUSCULAR HGB CONC 32.3 g/dL (32.0-36.0); MEAN CORPUSCULAR VOLUME 89.9 fL (79-99); MONOCYTES % (AUTO) 7.2 % (3.0-13.0); NEUTROPHILS % (AUTO) 84.1 % (40.0-77.0); NUCLEATED RED BLOOD CELLS 3.6 % (0.0-0.19); PLATELET COUNT (AUTO) 80 K/uL (130-400); RED BLOOD CELL COUNT(AUTO) 1.79 MIL/uL (4.50-6.20); RED CELL DISTRIBUTION WIDTH 18.9 % (11.0-15.5); WHITE BLOOD COUNT (AUTO) 24.9 K/uL (4.8-10.8)
[2020-02-14 05:50] LABS: ALBUMIN 1.1 g/dL (3.5-5.0); BILIRUBIN,TOTAL 1.1 mg/dL (0.2-1.0); CREATININE 3.3 mg/dL (0.5-1.5); PHOSPHORUS 6.3 mg/dL (2.5-4.9); TOTAL PROTEIN, SERUM 5.3 g/dL (6.0-8.3)
[2020-02-14 06:13] LABS: HEMATOCRIT 16.1 % (42-54)
[2020-02-14 06:19] LABS: POTASSIUM 6.3 mmol/L (3.5-5.1)
[2020-02-14] MEDS: MEROPENEM 500 MG VIAL IVP SCH ×3 (06:25→20:59)
[2020-02-14] MEDS: HYDROCORTISONE SOD SUCCINATE 100 MG/2 ML VIAL IV SCH ×3 (06:25→21:00)
[2020-02-14] MEDS: FLUCONAZOLE 200 MG/NS 100 ML 100 ML IV SCH (08:42)
[2020-02-14] MEDS: PANTOPRAZOLE 40 MG/VIAL IVP SCH ×2 (08:42→21:00)
[2020-02-14] MEDS: METOCLOPRAMIDE 10 MG/2 ML VIAL IVP SCH (08:42)
[2020-02-14] MEDS: ENOXAPARIN SODIUM 40 MG/0.4 ML SYRINGE SQ SCH (08:43)
[2020-02-14] MEDS: POLYETHYLENE GLYCOL 3350 17 GM POWD.PACK NG SCH (08:43)
[2020-02-14] MEDS: DOCUSATE NA 100MG/10ML UDCUP NG SCH ×3 (08:43→21:00)
[2020-02-14] MEDS: MIDODRINE HCL 5 MG TABLET PO SCH ×3 (08:43→21:00)
[2020-02-14 09:48] LABS: MEAN CORPUSCULAR HEMOGLOBIN 28.8 pg (27.0-33.0); MEAN CORPUSCULAR HGB CONC 31.9 g/dL (32.0-36.0); MEAN CORPUSCULAR VOLUME 90.1 fL (79-99); NUCLEATED RED BLOOD CELLS 5.7 % (0.0-0.19); PLATELET COUNT (AUTO) 60 K/uL (130-400); RED BLOOD CELL COUNT(AUTO) 2.33 MIL/uL (4.50-6.20); RED CELL DISTRIBUTION WIDTH 19.2 % (11.0-15.5); WHITE BLOOD COUNT (AUTO) 21.8 K/uL (4.8-10.8)
[2020-02-14 10:05] LABS: INR 0.91 (0.85-1.15); PROTHROMBIN TIME 9.9 SEC (9.6-11.6)
[2020-02-14 10:31] LABS: CREATININE 3.5 mg/dL (0.5-1.5); MAGNESIUM 1.7 mg/dL (1.80-2.40); POTASSIUM 5.9 mmol/L (3.5-5.1); TOBRAMYCIN,TROUGH 3.1 mcg/mL (0.5-1.5)
[2020-02-14 10:45] LABS: BAND NEUTROPHILS % (MANUAL) 17 % (0-2); LYMPHOCYTES % (MANUAL) 12 % (22-44); MAN.DIFF COMMENT-IMPRESSION MANUAL DIFFERENTIAL; MONOCYTES % (MANUAL) 11 % (2-9); PLATELET MORPHOLOGY COMMENT DECREASED; REACTIVE LYMPHOCYTES 2 % (0-0); SEGMENTED NEUTROPHILS % 58 % (40-70)
[2020-02-14] MEDS: VANCOMYCIN 1.5 GM in SODIUM CHLORIDE 0.9% 250 ML IV SCH (11:00)
[2020-02-14] MEDS: TOBRAMYCIN SULFATE 100 MG in SODIUM CHLORIDE 0.9% 100 ML IV SCH (12:00)
--- NOTE | 2020-02-14 18:51 | NUR ---
FAMILY UPDATE UPDATED FAMILY AND HAD DR. MONROE AND DR. BAEZA SPEAK TO FAMILY ABOUT PATIENTS STATUS. FAMILY IS CONSIDERING WITHDRAWING CARE SOON THEY ARE SPEAKING WITH FAMILY AND DR. BAEZA.
[2020-02-14] MEDS: PHENYLEPHRINE HCL 100 MG in SODIUM CHLORIDE 0.9% 250 ML IV SCH (21:01)
[2020-02-14] MEDS: NOREPINEPHRINE BITARTRATE 32 MG in SODIUM CHLORIDE 0.9% 250 ML IV SCH (21:02)
[2020-02-15] VITALS (104 sets, daily range): BP systolic 10–112; BP diastolic 10–64
[2020-02-15] MEDS: DEXTROSE 10%-WATER 1,000 ML IV SCH
[2020-02-15] MEDS: ACETYLCYSTEINE 20% 200MG/ML 4ML VIAL PO SCH ×3 (00:05→13:15)
[2020-02-15] MEDS: SODIUM POLYSTYRENE SULFONATE 15 GM/60 ML ML RC SCH (00:05)
[2020-02-15] MEDS: METOPROLOL TARTRATE 1 MG/ML 5ML VIAL IV SCH (00:05)
[2020-02-15 04:28] LABS: BASOPHILS % (AUTO) 0.3 % (0.0-5.0); EOSINOPHILS % (AUTO) 0.2 % (0.0-8.0); LYMPHOCYTES % (AUTO) 7.5 % (21.0-51.0); MEAN CORPUSCULAR HEMOGLOBIN 28.8 pg (27.0-33.0); MEAN CORPUSCULAR HGB CONC 32.5 g/dL (32.0-36.0); MEAN CORPUSCULAR VOLUME 88.8 fL (79-99); NEUTROPHILS % (AUTO) 80.5 % (40.0-77.0); NUCLEATED RED BLOOD CELLS 9.4 % (0.0-0.19); PLATELET COUNT (AUTO) 133 K/uL (130-400); RED BLOOD CELL COUNT(AUTO) 2.15 MIL/uL (4.50-6.20); RED CELL DISTRIBUTION WIDTH 19.7 % (11.0-15.5); WHITE BLOOD COUNT (AUTO) 13.1 K/uL (4.8-10.8)
[2020-02-15 04:32] LABS: HEMATOCRIT 19.1 % (42-54)
[2020-02-15 04:47] LABS: CREATININE 3.8 mg/dL (0.5-1.5); PHOSPHORUS 6.2 mg/dL (2.5-4.9)
[2020-02-15 04:52] LABS: POTASSIUM 6.6 mmol/L (3.5-5.1)
[2020-02-15] MEDS: MEROPENEM 500 MG VIAL IVP SCH ×2 (06:18→13:24)
[2020-02-15] MEDS: HYDROCORTISONE SOD SUCCINATE 100 MG/2 ML VIAL IV SCH ×2 (08:00→13:24)
[2020-02-15] MEDS: FLUCONAZOLE 200 MG/NS 100 ML 100 ML IV SCH (08:47)
[2020-02-15] MEDS: PANTOPRAZOLE 40 MG/VIAL IVP SCH (08:47)
[2020-02-15] MEDS: DOCUSATE NA 100MG/10ML UDCUP NG SCH ×2 (08:47→13:24)
[2020-02-15] MEDS: ENOXAPARIN SODIUM 40 MG/0.4 ML SYRINGE SQ SCH (08:48)
[2020-02-15] MEDS: MIDODRINE HCL 5 MG TABLET PO SCH ×2 (08:48→13:24)
[2020-02-15] MEDS: NOREPINEPHRINE BITARTRATE 32 MG in SODIUM CHLORIDE 0.9% 250 ML IV SCH ×2 (08:50→16:46)
[2020-02-15] MEDS: POLYETHYLENE GLYCOL 3350 17 GM POWD.PACK NG SCH (08:58)
[2020-02-15] MEDS: PHENYLEPHRINE HCL 100 MG in SODIUM CHLORIDE 0.9% 250 ML IV SCH ×2 (10:35→16:46)
[2020-02-15] MEDS: VANCOMYCIN 1.5 GM in SODIUM CHLORIDE 0.9% 250 ML IV SCH (11:00)
[2020-02-15] MEDS: FENTANYL 2500MCG+NS 250ML 250 ML IV SCH (11:10)
--- NOTE | 2020-02-15 13:22 | NUR ---
ABG (Daily) Canceled as per Dr. [place]
--- NOTE | 2020-02-15 14:00 | NUR ---
GASTRIC OUTPUT DR. MONROE NOTIFIED OF 900cc GASTRIC OUTPUT. MAINTAIN PT NPO AND ONLY GIVE IV MEDS.
[2020-02-15] MEDS: METOCLOPRAMIDE 10 MG/2 ML VIAL IVP SCH (15:28)
--- NOTE | 2020-02-15 16:30 | NUR ---
FAMILY TALK ABOUT WITHDRAWAL Dr. Solis spoke with sister Norah Saleh at 1630 and explained the pt's deteriorating condition. Pt's sister has agreed to withdrawal care and has told Dr. Solis she will be calling back to the nurses station to confirm overall family decision. I spoke with Norah on the phone at 1700 and she has agreed to give me a call back as soon as she speaks with her mother.
[2020-02-15] MEDS ORDERED: TOBRAMYCIN SULFATE 100 MG in SODIUM CHLORIDE 0.9% 100 ML IV SCH (21:00)
--- NOTE | 2020-02-15 21:44 | NUR ---
withdrawal of care withdrawal of care order was given by the family at shift care. primary physician and critical care physician was notified and they gave the okay to proceed. warehouse traffic supervisor was notified of family's decision. respiratory therapist was notified and came to extubate the patient. patient was extubated and vasopressors drips were turned off. family was on video call for the procedure. nurse pratictioner, charge nurse, rt and primary nurse at the bedside. patient at 2000. warehouse traffic supervisor pronounced time of . family on the phone and aware.
--- NOTE | 2020-02-15 21:55 | NUR ---
Post Mortem care Post moretem care completed. Body was transfered by security.
[2020-02-16] MEDS ORDERED: TOBRAMYCIN SULFATE 80 MG in SODIUM CHLORIDE 0.9% 100 ML IV SCH (21:00)
== END 2020-02-15 20:01 | disposition expired | DRG 207 ==
LOC: EDH 13:16 → EDHIP 13:17 → 4DH 22:53 → 2CH 01-11 21:03
PROVIDERS: ADMIT Hospitalist; ATTEND Hospitalist
PROC: XW033E5 Introduction of Remdesivir Anti-infective into Peripheral Vein, Percutaneous Approach, New Technology Group 5 (ICD-10-PCS; 2020-01-05)
PROC: XW13325 Transfusion of Convalescent Plasma (Nonautologous) into Peripheral Vein, Percutaneous Approach, New Technology Group 5 (ICD-10-PCS; 2020-01-05)
PROC: 5A09357 Assistance with Respiratory Ventilation, Less than 24 Consecutive Hours, Continuous Positive Airway Pressure (ICD-10-PCS; 2020-01-11)
PROC: 5A1955Z Respiratory Ventilation, Greater than 96 Consecutive Hours (ICD-10-PCS; principal; 2020-01-12)
PROC: 0BH17EZ Insertion of Endotracheal Airway into Trachea, Via Natural or Artificial Opening (ICD-10-PCS; 2020-01-12)
PROC: 02HV33Z Insertion of Infusion Device into Superior Vena Cava, Percutaneous Approach (ICD-10-PCS; 2020-01-12)
DX: U07.1 COVID-19 (principal); J96.01 Acute respiratory failure with hypoxia; J12.89 Other viral pneumonia; A41.89 Other specified sepsis; R65.21 Severe sepsis with septic shock; E43 Unspecified severe protein-calorie malnutrition; J96.02 Acute respiratory failure with hypercapnia; J15.0 Pneumonia due to Klebsiella pneumoniae; N17.0 Acute kidney failure with tubular necrosis; E87.1 Hypo-osmolality and hyponatremia; J47.0 Bronchiectasis with acute lower respiratory infection; Z68.41 Body mass index [BMI] 40.0-44.9, adult; E87.4 Mixed disorder of acid-base balance; N39.0 Urinary tract infection, site not specified; Z16.24 Resistance to multiple antibiotics; D69.6 Thrombocytopenia, unspecified; B96.1 Klebsiella pneumoniae [K. pneumoniae] as the cause of diseases classified elsewhere; B96.89 Other specified bacterial agents as the cause of diseases classified elsewhere; D64.9 Anemia, unspecified; E11.22 Type 2 diabetes mellitus with diabetic chronic kidney disease; E11.649 Type 2 diabetes mellitus with hypoglycemia without coma; E11.65 Type 2 diabetes mellitus with hyperglycemia; E66.01 Morbid (severe) obesity due to excess calories; E83.51 Hypocalcemia; E86.0 Dehydration; E87.5 Hyperkalemia; E87.6 Hypokalemia; E87.8 Other disorders of electrolyte and fluid balance, not elsewhere classified; F03.90 Unspecified dementia, unspecified severity, without behavioral disturbance, psychotic disturbance, mood disturbance, and anxiety; I12.9 Hypertensive chronic kidney disease with stage 1 through stage 4 chronic kidney disease, or unspecified chronic kidney disease; N18.9 Chronic kidney disease, unspecified; Z66 Do not resuscitate; Z74.01 Bed confinement status
CPT/HCPCS: 31500; 36415; 36430; 36600; 71045; 71250; 74018; 80048; 80051; 80053; 80076; 80200; 80202; 82330; 82435; 82550; 82728; 82803; 82947; 82948; 83605; 83615; 83735; 83874; 83880; 84100; 84132; 84145; 84295; 84484; 85014; 85018; 85025; 85027; 85378; 85610; 85730; 86140; 86900; 86901; 86927; 87040; 87071; 87077; 87088; 87186; 87205; 87426; 93005; 94002; 94003; 94660; C9113; G0378; J0360; J0456; J0610; J0696; J1100; J1450; J1650; J1720; J1815; J1940; J1956; J2020; J2185; J2250; J2370; J2704; J2765; J2920; J2930; J3010; J3260; J3370; J3475; J3480; J3490; J7030; J7040; J7050; J7060; J7070; J7120; J7131; J7608; Q9967; U0003